=== PATIENT | female | born 1965 | race Caucasian/White ===

== ENCOUNTER 2020-01-03 13:07 | Outpatient (CLI) | payer OTHER, SELFPAY ==
--- NOTE | 2020-01-03 13:13 | XR_ITS ---
WS: [id number] XR foot LT 2V [id number] REASON FOR EXAM: PAIN IN LEFT FOOT FINDINGS: An os perineum is seen adjacent to the proximal fifth metatarsal this is showing some degen erate changes. The phalanges, metatarsals, tarsals appear to be normal. A large calcaneal spur is seen with retrocalcaneal exostosis. XR/XR foot LT 2V [id number] IMPRESSION: Os perineum of no significance. Large calcaneal spur with retrocalcaneal exostosis.
== END 2020-01-03 13:08 | disposition home or self-care (01) ==
LOC: RADWPI 13:11
PROVIDERS: Family Provider Nurse Practitioner Family; PCP Nurse Practitioner Family; Visit Provider Nurse Practitioner Family
DX: M79.672 Pain in left foot (principal); M77.32 Calcaneal spur, left foot; M89.9 Disorder of bone, unspecified
CPT/HCPCS: 73620

== ENCOUNTER 2020-08-22 15:10 | Outpatient (CLI) | payer OTHER, SELFPAY ==
--- NOTE | 2020-08-22 15:14 | MM_ITS ---
WS: [id number] BILATERAL SCREENING DIGITAL MAMMOGRAM WITH CAD HISTORY: SCREENING COMPARISON: 08/08/2018 and 05/24/2017 Bilateral CC and MLO views submitted. Computer aided detection analyzed. Breast composition: There are scattered areas of fibroglandular density. No suspicious masses, microc alcifications or architectural distortion. Calcifications and asymmetries are stable. MM/[place] [id number] IMPRESSION: BI-RADS: 2-Benign FOLLOW UP: 1 Year Follow-up
== END 2020-08-22 15:11 | disposition home or self-care (01) ==
LOC: RADSHAW 15:13
PROVIDERS: PCP Nurse Practitioner Family; Visit Provider Nurse Practitioner Family
DX: Z12.31 Encounter for screening mammogram for malignant neoplasm of breast (principal)
CPT/HCPCS: 77067

== ENCOUNTER 2021-08-07 12:39 | Inpatient (IN) | payer OTHER, SELFPAY ==
[2021-08-07 12:46] VITALS: BP 140/81; PULSE 94; RESP 14; TEMP 36.8; O2SAT 97; BMI 37.8
--- NOTE | 2021-08-07 13:21 | W.ED.ABDPA2 ---
HPI - Abdominal Pain General: Chief Complaint: Abdominal Pain Stated Complaint: Thinks its a Gallbladder attack Time Seen by Provider: 08/07/21 13:18 Source: patient Mode of arrival: ambulatory Limitations: no limitations History of Present Illness: HPI narrative: 55-year-old female with a history of started liver disease has had worsening abdominal pain since early this morning. She says she often has similar pain, but it goes away within a short period of time. Described as crampy, sharp, stabbing, mainly on the right upper quadrant but radiating all across her abdomen. She feels bloated, nauseous and has not vomited. No fever. Last meal:yesterday evening. She has had several episodes of diarrhea today, dark/blackish She was recently started on a steroid taper pack and cefdinir for a suspected sinus infection. No fever. has chronic diarrhea and frequent right upper quadrant pain, but denies history of GI bleeds. Not anticoagulated. Previous abdominal surgeries; hernia repair, hysterectomy Associated Symptoms: Reports bloating, change in bowel habits, GI cramping, diarrhea, melena and nausea; Denies chills, fever(s) and vomiting Review of Systems General: Reports: 10 or more systems reviewed and unremarkable except in HPI and below Const: Reports: change in appetite and fatigue; Denies: fever(s) or chills Eyes: Denies: change in vision or blurry vision ENMT: Denies: odynophagia Card: Denies: chest pain, palpitations or irregular heart rhythm Resp: Denies: dyspnea, productive cough or wheezing GI: Reports: nausea, diarrhea, bloating, GI cramping, change in bowel habits and melena; Denies: vomiting or rectal pain Musc: Denies: neck pain, back pain, extremity pain or extremity swelling Skin/Breast: Denies: rash, pruritus or erythema Neuro: Denies: headache(s), numbness in extremities or weakness in extremities Endo: Denies: polyuria or polydipsia Graeme/Lymph: Denies: easy bruising or easy bleeding PFS ED PFSH: Medical History (Updated 08/07/21 @ 21:49 by Whitley Ayers MD) Advanced cirrhosis of liver History of uterine cancer Hypertension Surgical History H/O hernia repair (~2005) H/O: hysterectomy (~2004) Family History Mother Hypertension Denies family history of Diabetes Dementia Cancer Social History Smoking and tobacco status: never smoked Alcohol intake: never Housing: House Marital status: Current gender identity: Female Physical Exam Const: COMMON NORMALS: patient oriented x3 and no limitations GENERAL APPEARANCE: anxious and ill appearing NUTRITIONAL APPEARANCE: obese ORIENTATION/CONSCIOUSNESS: Yes awake HENMT: COMMON NORMALS: normocephalic and atraumatic HEAD & SCALP: normocephalic and atraumatic FACE & SINUS: normal facial exam and face symmetric Eye: COMMON NORMALS: Equal, round and reactive pupils present, EOMs intact bilaterally and no scleral icterus PUPIL: Yes Equal, round and reactive pupils present Neck/C-Spine: COMMON NORMALS: full ROM, no lymphadenopathy and supple Resp: COMMON NORMALS: normal respiratory effort and No use of accessory muscles EFFORT & INSPECTION: Yes able to speak in complete sentences and No tachypneic Cardio: COMMON NORMALS: regular rate and regular rhythm RATE: regular rate RHYTHM: regular rhythm GI: COMMON NORMALS: Soft to palpation PALPATION: Yes Soft to palpation, Yes Tenderness to palpation present (GI) Details: RLQ and RUQ, No Guarding due to palpation present (GI), No Rigid due to palpation, No Palpable mass present and Yes Rebound tenderness present Extremity: COMMON NORMALS: normal to inspection, full ROM and capillary refill normal Neuro: COMMON NORMALS: patient oriented x3 and moves all extremities Skin: COMMON NORMALS: no rashes or lesions noted, no wounds and no jaundice GENERAL SKIN EXAM: no rashes or lesions noted Course Vital Signs: Vital signs: Vital Signs Temperature 98.3 F 08/07/21 12:46 Pulse Rate 84 08/07/21 18:28 Respiratory Rate 16 08/07/21 18:28 Blood Pressure 196/116 08/07/21 18:28 Pulse Oximetry 98 08/07/21 18:28 MDM - Abdominal Pain MDM Narrative: Medical decision making narrative: 55-year-old with acute on chronic right-sided abdominal pain, diarrhea, nausea. Differential diagnosis; cholecystitis, pancreatitis, JACOB, variceal bleeding, GI hemorrhage, mesenteric ischemia, C. difficile colitis, bowel obstruction, appendicitis, perforated ulcer, peritonitis, right lower lobe pneumonia WBC count mildly elevated, however other inflammatory markers well within normal limits, (CRP, Procal) Mild hypokalemia, given p.o. replacement. Chemistry otherwise unremarkable. LFTs wnl: Bili, alk phos, AST/ALT, lipase Protonix 80 mg IV x1, Zofran, pain control CT findings; gallbladder wall thickening with pericholecystic fluid: Patient says she has been told her GB is chronically enlarged and thickened, but surgeons have not wanted to operate because of the liver disease. We have no imaging here to confirm that this is her baseline, however. Considering that she has no lab evidence of biliary obstruction or severe infection, and her pain is not localized to that area: acute cholecystitis is unlikely to be the etiology of her acute abdominal pain. Other notable CT findings: mesenteric edema of the right colon, mild free free fluid in the pelvis, and signs of mild ileus vs early small bowel obstruction. I discussed the case with Dr. Amador, general surgeon on-call; admit for bowel rest, IV fluids, and serial H/H. He will consult on the patient following admission. Discussed with Dr. Pina, on-call hospitalist, he accepts the admission. Differential Diagnosis: Differential diagnosis abdominal pain: Likely acute appendicitis, diverticulitis, gastroenteritis, pancreatitis and small bowel obstruction Medical Records: Attestation: I reviewed the patient's medical records. Lab Data: Attestation: I reviewed the patient's lab results. Labs: Lab Results 08/07/21 08/07/21 08/07/21 14:25 14:25 14:25 WBC 12.7 10^3/uL H 10 ^3/uL (4.0-10.0) RBC 4.94 10^6/uL 10^6 /uL (4.1-5.3) Hgb 15.4 g/dL H g/dL (11.5-15.3) Hct 45.0 % % (37.0-47.0) MCV 91.1 fl fl (81-99) MCH 31.2 pg pg (28.0-34.0) MCHC 34.2 g/dL g/dL (30.0-36.0) RDW 13.7 % % (12.1-15.1) Plt Count 175 10^3/cmm 10^3 /cmm (130-400) MPV 9.4 fL fL (7.4-10.4) Neut % (Auto) 82.1 % % Lymph % (Auto) 8.3 % % [place] % (Auto) 8.1 % % Eos % (Auto) 0.8 % % Baso % (Auto) 0.3 % % Neut # (Auto) 10.42 10^3/uL H 1 0^3/uL (1.8-7.7) Lymph # (Auto) 1.1 10^3/uL 10^3/ uL (0.8-4.8) [place] # (Auto) 1.0 10^3/uL H 10^ 3/uL (0.2-0.9) Eos # (Auto) 0.1 10^3/uL 10^3/ uL (0.0-0.8) Baso # (Auto) 0.0 10^3/uL 10^3/ uL (0.0-0.1) Nucleated RBC % (a uto) 0 % % Nucleated RBCs # 0.0 /100WBC /100W BC PT 15.70 SECONDS H S ECONDS (12.1-14.9) INR 1.21 H (0.8-1.2) Sodium 137 mmol/L mmol/L (136-145) Potassium 3.2 mmol/L L mmol /L (3.5-5.1) Chloride 101 mmol/L mmol/L (98-107) Carbon Dioxide 21 mmol/L L mmol/ L (22-29) Anion Gap 18.2 (5-19) BUN 11 mg/dL mg/dL (6-20) Creatinine 0.5 mg/dL mg/dL (0.5-0.9) GFR Calculation 127.6 mL/min mL/m in (90-130) Glucose 98 mg/dL mg/dL (65-115) Calculated Osmolal ity 283 mOsm/kg L mOs m/kg (285-295) Lactate Calcium 8.6 mg/dL mg/dL (8.5-10.5) Total Bilirubin 1.2 mg/dL mg/dL (0.15-1.2) AST 27 U/L U/L (0-32) ALT 38 U/L H U/L (0-33) Alkaline Phosphata se 76 IU/L IU/L (35-105) C-Reactive Protein Total Protein 7.7 g/dL g/dL (6.6-8.7) Albumin 4.1 g/dL g/dL (3.5-5.2) Globulin 3.6 g/dL g/dL (1.3-4.6) Lipase 46 U/L U/L (13-60) Procalcitonin Urine Color Urine Appearance Urine pH Ur Specific Gravit y Urine Protein Urine Glucose (UA) Urine Ketones Urine Blood Urine Nitrate Urine Bilirubin Urine Urobilinogen Ur Leukocyte Paige ase Urine RBC Urine WBC Ur Squamous Epith Cells Amorphous Sediment Urine Bacteria 08/07/21 08/07/21 08/07/21 15:08 16:50 16:50 WBC RBC Hgb Hct MCV MCH MCHC RDW Plt Count MPV Neut % (Auto) Lymph % (Auto) [place] % (Auto) Eos % (Auto) Baso % (Auto) Neut # (Auto) Lymph # (Auto) [place] # (Auto) Eos # (Auto) Baso # (Auto) Nucleated RBC % (a uto) Nucleated RBCs # PT INR Sodium Potassium Chloride Carbon Dioxide Anion Gap BUN Creatinine GFR Calculation Glucose Calculated Osmolal ity Lactate 1.4 mmol/L mmol/L (0.5-2.2) Calcium Total Bilirubin AST ALT Alkaline Phosphata se C-Reactive Protein 2.6 mg/L mg/L (0.0-4.9) Total Protein Albumin Globulin Lipase Procalcitonin 0.07 ng/mL ng/mL (0-0.5) Urine Color Yellow (Yellow) Urine Appearance Clear (CLEAR) Urine pH 7 (5-7) Ur Specific Gravit y 1.005 (1.005-1.030) Urine Protein Neg (Negative) Urine Glucose (UA) Norm (Normal) Urine Ketones Negative (Negative) Urine Blood 2+ H (Negative) Urine Nitrate Negative (Negative) Urine Bilirubin Neg (Negative) Urine Urobilinogen Neg mg/dL mg/dL (Negative) Ur Leukocyte Paige ase Negative (Negative) Urine RBC Rare /hpf /hpf (0-2) Urine WBC None /hpf /hpf (0-5) Ur Squamous Epith Cells 0-4 /hpf H /hpf (0-5) Amorphous Sediment Not Reportable Urine Bacteria None /hpf /hpf (NONE) Discharge Plan Discharge Patient Disposition: Admitted As Inpatient Clinical Impression: Small bowel obstruction, Advanced cirrhosis of liver, Colitis, History of melena Condition: Stable Coding Level of Care Code ED Resource Recovery Specialist for Chg Fwd Exam Comprehensive
--- NOTE | 2021-08-07 13:33 | ECG_ITS ---
[facility] Test Date: 2021-08-07 Pat Name: Kerri Silvestre Department: Room: Gender: Female Computer Lab Aide: : 1965 Requested By: Whitley Ayers Order Number: [id number] Thomas MD: Roc Alcantara M.D. Measurements Intervals [place] Rate: 76 P: 24 CA: 121 QRS: -44 QRSD: 145 T: 11 QT: 424 QTc: 479 Interpretive Statements SINUS RHYTHM LEFT AXIS DEVIATION [QRS AXIS < -30] INTRAVENTRICULAR CONDUCTION DELAY [130+ ms QRS DURATION] VOLTAGE CRITERIA FOR LVH [MEETS CRITERIA IN ONE OF: R(aVL), S(V1), R(V5), R(V5/V6)+S(V1)] POSSIBLE SEPTAL MYOCARDIAL INFARCTION , PROBABLY OLD [30 ms Q WAVE IN V1/V2] No previous ECG available for comparison Electronically Signed On 08-08-2021 14:11:30 ASSEMBLING MOTOR BUILDER by Roc Alcantara M.D. [id number]
--- NOTE | 2021-08-07 13:35 | CT_ITS ---
WS: [id number] CT ABDOMEN AND PELVIS WITH CONTRAST HISTORY: right sided abdominal pain, nausea, distension TECHNIQUE: Imaging performed of the abdomen and pelvis with IV contrast. Single phase imaging of the abdomen. Coronal and sagittal reformats are submitted. All CT scans at [facility] use at [facility] one of these dose optimization techniques: automated exposure control; mA and/or kV adjustment per patient size (includes targeted exams where dose is matched to clinical indication); or iterative re construction. IV CONTRAST: Omnipaque 300; 95 mL IV. Oral contrast: No DLP: 1786.72 mGy.cm COMPARISON: None available. Lower thorax: Lung bases are clear. Heart is normal size. Small hiatal hernia. Liver/biliary system: Normal size liver. No bile duct dilatation. Normal portal vein. There is a smal l amount of perihepatic fluid. Partial recanalization of the umbilical vein. Gallbladder: Abnormal gallbladder. Gallbladder is normal size but there is pericholecystic fluid surr ounding the gallbladder. No stones are identified within the lumen. No bile duct dilatation. Pancreas: Normal size pancreas and pancreatic duct. No adjacent inflammation. Spleen: Spleen is moderately enlarged measuring 15 cm in length. Adrenal glands: Normal. Right kidney: Normal. Left kidney: Normal. Aorta: Mild atherosclerosis with no aneurysm. Lymphadenopathy: None. Free fluid: Small amount of perihepatic fluid. There is mild mesenteric edema extending along the RIG HT paracolic gutter. Small amount of free fluid in the RIGHT pelvis. GI tract: There is very mild fluid distention of the small bowel loops. No obstructive pattern. This may be due to old trauma mild ileus. Abdominal wall: Numerous clips within the intra-abdominal wall from prior hernia repair. Pelvis: Small amount of free fluid in the pelvis. Prior hysterectomy. Bones: Unremarkable. CT/CT abdomen pelvis w con* [id number] IMPRESSION: 1. Diffuse gallbladder wall thickening with gallbladder wall edema. No stones identified and no bile duct dilatation. There is also small amount of fluid alfred rounding the liver. Acute cholecystitis to be considered clinically but alterna tively acute hepatitis/cirrhosis should be considered due to the fluid around t he liver and the diffuse edema within the gallbladder. Gallbladder ultrasound m ay provide additional information concerning stones. 2. Mild mesenteric edema along the RIGHT paracolic gutter and a small amount o f free fluid in the RIGHT pelvis. 3. Mild fluid dilatation of small bowel loops. Consider mild ileus versus lauren y small bowel obstruction. No transition point is identified. 4. Mild splenomegaly 15 cm in length.
[2021-08-07 14:34] LABS: Basophils % 0.3 %; Eosinophils # 0.1 10^3/uL (0.0-0.8); Eosinophils % 0.8 %; Hemoglobin 15.4 g/dL (11.5-15.3); Lymphocytes # 1.1 10^3/uL (0.8-4.8); Lymphocytes % 8.3 %; Mean Corpuscular HGB Conc 34.2 g/dL (30.0-36.0); Mean Corpuscular Hemoglobin 31.2 pg (28.0-34.0); Mean Corpuscular Volume 91.1 fl (81-99); Mean Platelet Volume 9.4 fL (7.4-10.4); Monocytes % 8.1 %; Neutrophils # 10.42 10^3/uL (1.8-7.7); Neutrophils % 82.1 %; Nucleated Red Blood Cells % 0 %; Platelet Count 175 10^3/cmm (130-400); Red Blood Count 4.94 10^6/uL (4.1-5.3); Red Cell Distribution Width 13.7 % (12.1-15.1); White Blood Count 12.7 10^3/uL (4.0-10.0)
[2021-08-07] MEDS: pantoprazole 40 mg SDV 80 MG IVP (14:34)
[2021-08-07] MEDS: morphine 4 mg/mL SDV 1 mL IVP (14:35)
[2021-08-07] MEDS: ondansetron 2 mg/ML SDV 2 mL 4 MG IVP (14:35)
[2021-08-07 14:40] VITALS: BP 137/82; PULSE 92; RESP 14; O2SAT 98
[2021-08-07 14:47] LABS: INR 1.21 (0.8-1.2)
[2021-08-07] MEDS: iohexol 300 mg/mL 100 mL Btl IV (14:48)
[2021-08-07 14:55] LABS: Alanine Aminotransferase 38 U/L (0-33); Albumin Level 4.1 g/dL (3.5-5.2); Alkaline Phosphatase 76 IU/L (35-105); Anion Gap 18.2 (5-19); Aspartate Amino Transferase 27 U/L (0-32); Blood Urea Nitrogen 11 mg/dL (6-20); Calcium 8.6 mg/dL (8.5-10.5); Carbon Dioxide 21 mmol/L (22-29); Chloride 101 mmol/L (98-107); Globulin 3.6 g/dL (1.3-4.6); Glomerular Filtration Rate 127.6 mL/min (90-130); Glucose 98 mg/dL (65-115); Lipase 46 U/L (13-60); Osmolality Calculated 283 mOsm/kg (285-295); Potassium 3.2 mmol/L (3.5-5.1); Sodium 137 mmol/L (136-145); Total Bilirubin 1.2 mg/dL (0.15-1.2); Total Protein 7.7 g/dL (6.6-8.7)
[2021-08-07 15:27] VITALS: BP 139/83; PULSE 83; RESP 22; O2SAT 99
[2021-08-07 15:46] VITALS: BP 152/69; PULSE 81; RESP 14; O2SAT 97
--- NOTE | 2021-08-07 16:22 | USR_ITS ---
PROCEDURE INFORMATION: Exam: US Abdomen, Limited; Right Upper Quadrant Exam date and time: 08/07/2021 4:22 PM Age: 55 years old Clinical indication: Abnormal findings; Abnormal radiologic finding of the abdomen; Radiologic exam and body structure: CT abd/pelvis; Additional info: Abnormal CT findings TECHNIQUE: Imaging protocol: US abdomen. Real time ultrasound with image documentation. Limited exam focused on the right upper quadrant. COMPARISON: CT abdomen pelvis w con* [id number] 08/07/2021 2:50 PM FINDINGS: Liver: Mildly coarsened hepatic parenchymal echotexture. No masses. Gallbladder: Diffuse gallbladder wall thickening. Adherent nonshadowing stone versus gallbladder polyp measuring up to 1 cm along the wall of the gallbladder body. Common bile duct: The common bile duct measures 5 mm within normal limits. Pancreas: Poorly visualized due to overlying bowel gas and soft tissues. Right kidney: Right kidney measures 10.2 cm in length. No mass. No hydronephrosis. Intraperitoneal space: Trace perihepatic ascites. US/US gall bladder [id number] IMPRESSION: 1. Diffuse gallbladder wall thickening. Unclear if this is secondary to cholecystitis or reactive to underlying liver disease. 2. Nonmobile, nonshadowing 1 cm echogenic focus along the wall of the gallbladder body. Either an adherent stone or gallbladder polyp. 3. Coarsened appearance of the hepatic parenchyma suggestive of underlying liver disease. 4. Trace perihepatic ascites.
[2021-08-07 16:51] LABS: Add Urine Microscopic? YES; Bilirubin Urine Neg (Negative); Blood Urine 2+ (Negative); Glucose Urine UA Norm (Normal); Ketones Urine Negative (Negative); Leukocyte Esterase Urine Negative (Negative); Nitrate Urine Negative (Negative); Protein Urine Neg (Negative); Specific Gravity, Urine 1.005 (1.005-1.030); Urine Appearance Clear (CLEAR); Urine Color Yellow (Yellow); Urobilinogen Urine Neg (Negative); pH Urine 7 (5-7)
[2021-08-07 16:52] LABS: Add Urine Culture? No; RBC Urine RARE /hpf (0-2); Squamous Epithelial Cell Urine 0-4 /hpf (0-5)
[2021-08-07 16:57] VITALS: BP 173/82; PULSE 79; RESP 16; O2SAT 98
[2021-08-07 17:39] LABS: C Reactive Protein 2.6 mg/L (0.0-4.9)
[2021-08-07 17:40] LABS: Lactate (Lactic Acid level) 1.4 mmol/L (0.5-2.2)
[2021-08-07] MEDS: potassium chloride ER 20 mEq Tablet 40 MEQ PO (17:40)
[2021-08-07 17:44] LABS: Procalcitonin 0.07 ng/mL (0-0.5)
[2021-08-07 18:28] VITALS: BP 196/116; PULSE 84; RESP 16; O2SAT 98
[2021-08-07] MEDS: lactated ringers 1,000 ML 150 ML IV (20:00)
--- NOTE | 2021-08-07 20:05 | P.HP_ITS ---
Providers/Chief Complaint Primary Care Provider: JOAQUÍN Calvillo Chief Complaint: Thinks its a Gallbladder attack History of Present Illness Kerri Silvestre is a 55 year old female with past medical history of decompensated liver cirrhosis status post esophageal varices banding, secondary to GEIGER, chronic diarrhea, chronic abdominal pain of unclear etiology, says that it has always been related to her gallbladder, came in with chief complaint of Worsening generalized abdominal pain, started this morning, describes as crampy, sharp, located in the right upper quadrant, and radiating across the abdomen, accompanied with nausea, no vomiting. Denies any fever, chest pains, cough shortness of breath. According to the patient she says that she has long history of similar ongoing abdominal pain, but this morning it was more severe, and that is the reason why she came to the ER. Upon arrival in the ER she was worked up for above-mentioned complaint: Pertinent imaging studies: CT ABDOMEN AND PELVIS WITH CONTRAST: 1. Diffuse gallbladder wall thickening with gallbladder wall edema. No stones identified and no bile duct dilatation. There is also small amount of fluid surrounding the liver. Acute cholecystitis to be considered clinically but alternatively acute hepatitis/cirrhosis should be considered due to the fluid around the liver and the diffuse edema within the gallbladder. Gallbladder ultrasound may provide additional information concerning stones. 2. Mild mesenteric edema along the RIGHT paracolic gutter and a small amount of free fluid in the RIGHT pelvis. 3. Mild fluid dilatation of small bowel loops. Consider mild ileus versus early small bowel obstruction. No transition point is identified. 4. Mild splenomegaly 15 cm in length. Ultrasound gallbladder: 1. Diffuse gallbladder wall thickening. Unclear if this is secondary to cholecystitis or reactive to underlying liver disease. 2. Nonmobile, nonshadowing 1 cm echogenic focus along the wall of the gallbladder body. Either an adherent stone or gallbladder polyp. 3. Coarsened appearance of the hepatic parenchyma suggestive of underlying liver disease. 4. Trace perihepatic ascites. Pertinent labs: BC 9.4 H&H 13.4 / 39.5 , PLT : 113 , serum sodium 137 serum potassium 3.2, BUN and serum creatinine:11/0.5 , AST 27 ALT 38 ALP 76, total bilirubin:1.2, lactic acid 1.4, PT/INR : 15/1.21 Urinalysis clear Review of Systems Const: Denies: fever(s), chills, body aches, change in appetite or diaphoresis Card: Denies: palpitations, edema, swelling of feet/ankles, dyspnea on exertion, orthopnea or leg pain with exertion Resp: Denies: dyspnea, productive cough, wheezing or pain on inspiration : Denies: flank pain Musc: Denies: back pain, extremity pain or extremity swelling Neuro: Denies: headache(s), difficulty walking or confusion Medications/Allergies Home Medications Medication Instructions Recorded Confirmed Last Taken Type fexofenadine 60 mg tablet 60 mg PO BID 02/04/20 08/07/21 08/07/21 History triamterene 37.5 1 cap PO DAILY 02/04/20 08/07/21 08/07/21 History mg-hydrochlorothiazide 25 mg capsule Probiotic 1 tab-cap PO DAILY 08/07/21 08/07/21 08/07/21 History cefdinir 300 mg PO Q12H 08/07/21 08/07/21 08/07/21 History methylprednisolone See Rx Instructions .ROUTE .COMPLEX 08/07/21 08/07/21 08/07/21 History Allergies Allergy/AdvReac Type Severity Reaction Status Date / Time Penicillins Allergy Intermediate ALGY-Hives Verified 08/07/21 17:47 EL Inhibitors Allergy Unknown Verified 08/07/21 17:47 mometasone furoate Allergy ADR-Headach Verified 08/07/21 17:47 e PFSH Acute PFSH: Medical History (Updated 08/07/21 @ 22:38 by Onofre Pina MD) Advanced cirrhosis of liver History of uterine cancer Hypertension Surgical History H/O hernia repair (~2005) H/O: hysterectomy (~2004) Family History Mother Hypertension Denies family history of Diabetes Dementia Cancer Social History Smoking and tobacco status: never smoked Alcohol intake: never Housing: House Marital status: Current gender identity: Female Vitals/I&O/Wt Last Vital Signs Temp 98.3 F 08/07/21 12:46 Pulse 84 08/07/21 18:28 Resp 16 08/07/21 18:28 BP 196/116 08/07/21 18:28 Pulse Ox 98 08/07/21 18:28 Weight last 48 hrs Weight 99.79 kg Physical Exam Const: COMMON NORMALS: patient oriented x3 HENMT: COMMON NORMALS: normocephalic and atraumatic HEAD & SCALP: normocephalic and atraumatic Resp: COMMON NORMALS: clear to auscultation bilaterally AUSCULTATION: clear to auscultation bilaterally Cardio: COMMON NORMALS: regular rate, regular rhythm, S1 normal heart sound present, S2 normal heart sound present, No gallops present (Cardio), No murmurs present (Cardio), No rub (Cardio) and Peripheral pulses 2+ throughout RATE: regular rate RHYTHM: regular rhythm HEART SOUNDS: S1 normal heart sound present and S2 normal heart sound present PERIPHERAL PULSES: Peripheral pulses 2+ throughout GI: COMMON NORMALS: Normal to inspection, nondistended, normoactive bowel sounds present, Soft to palpation, non-tender, No hepatosplenomegaly present and no masses AUSCULTATION: Yes normoactive bowel sounds PALPATION: Yes Soft to palpation and Yes No hepatosplenomegaly present RECTAL EXAM: deferred Extremity: COMMON NORMALS: no clubbing, cyanosis or edema and no pedal edema Neuro: COMMON NORMALS: patient oriented x3 Data : 08/08/21 06:17 08/07/21 14:25 A&P Assessment and plan (1) Ileus: Status: Acute (2) Hypokalemia: Status: Acute (3) Dehydration: Status: Acute (4) Leukocytosis: Status: Acute (5) Advanced cirrhosis of liver: Status: Acute (6) Hypertension: Status: Acute (7) Thrombocytopenia: Status: Acute Additional A&P Information Kerri Silvestre is a 55 year old female with past medical history of decompensated liver cirrhosis status post esophageal varices banding, secondary to GEIGER, chronic diarrhea, chronic abdominal pain of unclear etiology, says that it has always been related to her gallbladder, came in with chief complaint of Worsening generalized abdominal pain, started this morning, describes as crampy, sharp, located in the right upper quadrant, and radiating across the abdomen, accompanied with nausea, no vomiting. Denies any fever, chest pains, cough shortness of breath. According to the patient she says that she has long history of similar ongoing abdominal pain, but this morning it was more severe. #Ileus versus developing SBO : N.p.o. IV hydration Pain control Electrolyte replacement Surgery was consulted by the ER, currently they are keen on medical management. #Decompensated liver cirrhosis secondary to Geiger: No acute intervention. See laborer pole crew as an outpatient. #Chronic thrombocytopenia: Secondary to liver cirrhosis #Splenomegaly: Secondary liver cirrhosis #Dehydration: Continue IV hydration #Hypokalemia: Monitor serum potassium and replace accordingly #DVT prophylaxis: On SCD #CODE STATUS: Full code Attestations Medical Necessity Statement*: Patient needs to be in hospital for management of early small bowel obstruction versus Ileus. Anticipated length of stay greater than 2 midnights. Time Spent in Patient Care: Greater than 35 minutes (>than 50% of time spent in counselling and/or direct pt care on unit) . Coding Level of Care Code Acute Hydrometeorology Teacher for g Fwd Exam Detailed Diagnoses Ileus K56.7 Hypokalemia E87.6 Dehydration E86.0 Leukocytosis D72.829 Advanced cirrhosis of liver K74.60 Hypertension I10 Thrombocytopenia D69.6
[2021-08-07] MEDS: enoxaparin 40 mg/0.4 mL Syringe SUBCUT (20:40)
[2021-08-07 22:19] LABS: Basophils % 0.2 %; Eosinophils % 0.2 %; Hematocrit 39.5 % (37.0-47.0); Hemoglobin 13.4 g/dL (11.5-15.3); Lymphocytes # 0.7 10^3/uL (0.8-4.8); Lymphocytes % 6.9 %; Mean Corpuscular HGB Conc 33.9 g/dL (30.0-36.0); Mean Corpuscular Hemoglobin 30.5 pg (28.0-34.0); Mean Corpuscular Volume 89.8 fl (81-99); Mean Platelet Volume 9.9 fL (7.4-10.4); Monocytes # 0.7 10^3/uL (0.2-0.9); Monocytes % 7.7 %; Neutrophils # 7.97 10^3/uL (1.8-7.7); Neutrophils % 84.6 %; Nucleated Red Blood Cells % 0 %; Platelet Count 113 10^3/cmm (130-400); Red Cell Distribution Width 13.7 % (12.1-15.1); White Blood Count 9.4 10^3/uL (4.0-10.0)
[2021-08-07] MEDS: lidocaine 1% 5 ML in potassium chloride premix 100 ML 25 ML IV (23:27)
--- NOTE | 2021-08-07 23:31 | PC.NURSE ---
pt wants IV potassium stopped, she states it is burning
[2021-08-08 00:20] LABS: SARS Covid-2 Antigen Negative (Negative)
[2021-08-08 01:43] VITALS: BP 130/73; PULSE 77; RESP 19; TEMP 37.3; O2SAT 130; BMI 38.0
--- NOTE | 2021-08-08 01:50 | PC.NURSE ---
ADMIT NOTE Pt received to room from ER at 0135. Walked from [facility] in [place] to room. Says abdominal pain started at about 0400 yesterday am. Abdomen is soft with generalized tenderness. Says knows her gallbladder is bad but they cannot do surgery due to her liver cirrhosis. Says thought this was a gallbladder attack this time. Is aware is NPO except for ice chips, sips and meds. IV patent with IV fluids infusing. Pt also says she has been having alot of diarrhea. Stool specimen was sent from the ER. Instructed on need to monitor I&O. VS done and oriented to room. RN at bedside doing admision assessment
[2021-08-08] MEDS: sodium chloride 0.9% 1,000 ML 75 ML IV ×3 (02:07→23:42)
[2021-08-08 03:49] VITALS: BP 135/63; PULSE 76; RESP 16; TEMP 37.7; O2SAT 94
[2021-08-08 06:30] LABS: Basophils % 0.4 %; Eosinophils # 0.1 10^3/uL (0.0-0.8); Eosinophils % 1.1 %; Hematocrit 36.7 % (37.0-47.0); Hemoglobin 12.7 g/dL (11.5-15.3); Lymphocytes # 0.6 10^3/uL (0.8-4.8); Lymphocytes % 11.3 %; Mean Corpuscular HGB Conc 34.6 g/dL (30.0-36.0); Mean Corpuscular Volume 89.5 fl (81-99); Mean Platelet Volume 9.7 fL (7.4-10.4); Monocytes # 0.7 10^3/uL (0.2-0.9); Monocytes % 12.2 %; Neutrophils # 4.18 10^3/uL (1.8-7.7); Neutrophils % 74.6 %; Nucleated Red Blood Cells % 0 %; Platelet Count 86 10^3/cmm (130-400); Red Cell Distribution Width 13.7 % (12.1-15.1); White Blood Count 5.6 10^3/uL (4.0-10.0)
[2021-08-08 06:52] LABS: Alanine Aminotransferase 28 U/L (0-33); Albumin Level 3.3 g/dL (3.5-5.2); Alkaline Phosphatase 59 IU/L (35-105); Anion Gap 14.2 (5-19); Aspartate Amino Transferase 21 U/L (0-32); Blood Urea Nitrogen 14 mg/dL (6-20); Calcium 7.9 mg/dL (8.5-10.5); Carbon Dioxide 22 mmol/L (22-29); Chloride 106 mmol/L (98-107); Globulin 2.6 g/dL (1.3-4.6); Glomerular Filtration Rate 103.4 mL/min (90-130); Glucose 100 mg/dL (65-115); Osmolality Calculated 289 mOsm/kg (285-295); Potassium 3.2 mmol/L (3.5-5.1); Sodium 139 mmol/L (136-145); Total Bilirubin 0.9 mg/dL (0.15-1.2); Total Protein 5.9 g/dL (6.6-8.7)
[2021-08-08] MEDS: acetaminophen 325 mg Tablet 650 MG PO ×3 (08:31→21:02)
[2021-08-08 09:12] VITALS: BP 108/63; PULSE 76; RESP 16; TEMP 37.2; O2SAT 96
[2021-08-08] MEDS: potassium chloride ER 20 mEq Tablet 40 MEQ PO (11:35)
[2021-08-08 11:41] LABS: Magnesium 1.6 mg/dL (1.7-2.3)
[2021-08-08] MEDS: cefTRIAXone 1,000 MG in sodium chloride 0.9% (plus) 50 ML 100 MG IV (12:16)
[2021-08-08] MEDS: pantoprazole 40 mg SDV IVP ×2 (12:16→22:56)
[2021-08-08 13:18] VITALS: BP 122/71; PULSE 67; RESP 15; TEMP 36.6; O2SAT 95
--- NOTE | 2021-08-08 15:10 | PM.PN ---
Subjective Subjective: Interval history: History and physical was reviewed. Patient reports significant abdominal pain, both sides but a little bit more on the right. Medications: Reviewed: Yes Vitals/I&O/Wt Last Vital Signs Temp 97.8 F 08/08/21 13:18 Pulse 67 08/08/21 13:18 Resp 15 08/08/21 13:18 BP 122/71 08/08/21 13:18 Pulse Ox 95 08/08/21 13:18 08/08/21 08/08/21 08/08/21 06:59 14:59 22:59 Intake Total 1.25 / 1.25 480 / 480 Output Total 250 / 250 Balance -248.75 / -248.75 480 / 480 Weight last 48 hrs Weight 104.598 kg Weight 100.698 kg Weight 99.79 kg Physical Exam Narrative: EXAM NARRATIVE: General exam no distress Neck is supple Cardiovascular regular rate and rhythm without murmur Abdomen tender. Positive bowel sounds exam deferred Extremities no cyanosis clubbing or edema Data : 08/08/21 06:17 08/08/21 06:17 Micro: Microbiology 08/08/21 14:39 Blood Culture - Preliminary Blood SPECIMEN COLLECTED 08/08/21 14:35 Blood Culture - Preliminary Blood SPECIMEN COLLECTED 08/08/21 00:09 Enteric Pathogens (PCR) - Final Stool - Stool Aspirate C.difficile Toxin B Gene (PCR) - Final A&P Assessment and plan (1) Ileus: She is passing stool. I am concerned regarding the small amount of mesenteric edema right paracolic gutter, small amount of free fluid in the pelvis and around the liver. Although this is not amenable to aspiration she could have SBP. Initiate Rocephin As she is passing stool, not vomiting will initiate some full liquids. Draw blood cultures Status: Acute (2) Hypokalemia: Supplement potassium Recheck tomorrow Magnesium was checked and low. Supplement this as well. Status: Acute (3) Dehydration: Currently being hydrated Status: Acute (4) Leukocytosis: Proceed to treat for possible SBP. No leukocytosis on today's labs. Status: Acute (5) Advanced cirrhosis of liver: Follows with hepatology in [place]. Status: Acute (6) Hypertension: Blood pressure normal currently Status: Acute (7) Thrombocytopenia: Continue to follow Status: Acute Additional A&P Information Full code SCDs for DVT prophylaxis Attestations Medical Necessity Statement*: Needs continued hospitalization for IV antibiotics for possible SBP Coding Level of Care Code Acute Clinical Lab Clerk for Chg Fwd Diagnoses Ileus K56.7 Hypokalemia E87.6 Dehydration E86.0 Leukocytosis D72.829 Advanced cirrhosis of liver K74.60 Hypertension I10 Thrombocytopenia D69.6
[2021-08-08] MEDS: magnesium sulfate premix 2 GM/50 ML PIGGYBACK IV (15:48)
[2021-08-08 16:54] VITALS: BP 102/65; PULSE 61; RESP 15; TEMP 36.6; O2SAT 94
[2021-08-08 20:00] VITALS: BP 106/60; PULSE 60; RESP 17; TEMP 37.3; O2SAT 95
[2021-08-09] VITALS: BP 112/59; PULSE 60; RESP 18; TEMP 36.9; O2SAT 96
[2021-08-09 03:38] VITALS: BP 123/74; PULSE 71; RESP 18; TEMP 36.8; O2SAT 98
[2021-08-09] MEDS: acetaminophen 325 mg Tablet 650 MG PO (03:38)
[2021-08-09 03:59] LABS: Basophils % 0.6 %; Eosinophils # 0.2 10^3/uL (0.0-0.8); Eosinophils % 6.7 %; Hematocrit 39.2 % (37.0-47.0); Lymphocytes # 0.7 10^3/uL (0.8-4.8); Lymphocytes % 18.6 %; Mean Corpuscular HGB Conc 33.2 g/dL (30.0-36.0); Mean Corpuscular Hemoglobin 31.2 pg (28.0-34.0); Mean Platelet Volume 9.8 fL (7.4-10.4); Monocytes # 0.5 10^3/uL (0.2-0.9); Monocytes % 14.2 %; Neutrophils # 2.15 10^3/uL (1.8-7.7); Neutrophils % 59.6 %; Nucleated Red Blood Cells % 0 %; Platelet Count 68 10^3/cmm (130-400); Red Blood Count 4.17 10^6/uL (4.1-5.3); White Blood Count 3.6 10^3/uL (4.0-10.0)
[2021-08-09 04:20] LABS: Alanine Aminotransferase 28 U/L (0-33); Albumin Level 3.3 g/dL (3.5-5.2); Alkaline Phosphatase 58 IU/L (35-105); Anion Gap 12.2 (5-19); Aspartate Amino Transferase 28 U/L (0-32); Blood Urea Nitrogen 13 mg/dL (6-20); Calcium 7.6 mg/dL (8.5-10.5); Carbon Dioxide 22 mmol/L (22-29); Chloride 108 mmol/L (98-107); Globulin 2.6 g/dL (1.3-4.6); Glomerular Filtration Rate 103.4 mL/min (90-130); Glucose 81 mg/dL (65-115); Magnesium 2.1 mg/dL (1.7-2.3); Osmolality Calculated 287 mOsm/kg (285-295); Potassium 3.2 mmol/L (3.5-5.1); Sodium 139 mmol/L (136-145); Total Bilirubin 0.8 mg/dL (0.15-1.2); Total Protein 5.9 g/dL (6.6-8.7)
--- NOTE | 2021-08-09 05:47 | PC.NURSE ---
SHIFT SUMMARY Says she slept off & on tonight. Has been up to bathroom several times for diarrhea stools. Says thinks probably 5 times at least. Abdomen is soft with tenderness but says not as much pain. Does c/o headache most all the time. Says these headaches are not new. Has received po Tylenol X2. IV infusing without difficulty at 75ml/hr rate.
[2021-08-09 08:00] VITALS: BP 134/81; PULSE 62; RESP 16; TEMP 37.1; O2SAT 94
[2021-08-09] MEDS: potassium chloride ER 20 mEq Tablet 40 MEQ PO (09:44)
--- NOTE | 2021-08-09 10:13 | P.DS_ITS ---
Discharge Providers Date of Admission: 08/07/21 20:01 Date of Discharge: August 09, 2021 Attending Provider at Admission: Onofre Pina MD Attending Provider at Discharge: Joseph Tinoco MD Primary Care Provider: JOAQUÍN Calvillo Diagnoses at Discharge Discharge Diagnosis (1) Ileus: Status: Acute (2) Hypokalemia: Status: Acute (3) Dehydration: Status: Acute (4) Leukocytosis: Status: Acute (5) Advanced cirrhosis of liver: Status: Acute (6) Hypertension: Status: Acute (7) Thrombocytopenia: Status: Acute Reason for Visit Reason for Visit: Thinks its a Gallbladder attack Hospital Course Hospital Course Kerri presented with abdominal pain. She states it was significantly worse than usual. She has had 1 episode of this in the past that seem to spontaneously resolved. She reports she has some low-grade abdominal discomfort frequently, and some loose stool. C. difficile toxin was negative as well as stool antigens. CT abdomen and pelvis demonstrated some gallbladder wall thickening, no duct dilation, mild mesenteric edema right paracolic gutter, mild fluid dilation of small bowel, and some fluid around the liver. Gallbladder ultrasound demonstrated some thickening likely secondary to underlying liver disease. Cholecystectomy was thought less likely secondary to her given history that she has had multiple evaluations of her gallbladder and changes were thought to be secondary to her chronic liver disease. Secondary to her chronic liver disease SBP could not be excluded. She was placed on Rocephin. On August 09 she was much better. She was tolerating full liquids, and wanted to go home. I felt this was reasonable as she was afebrile and abdominal discomfort greatly improved. She will finish up 7 days of ciprofloxacin, follow-up with her primary care provider as well as her liver specialist and return for any concerns. Physical Exam Narrative: EXAM NARRATIVE: General exam no distress Neck is supple Cardiovascular regular rate and rhythm Lungs clear Abdomen currently soft, with no significant tenderness Extremities no cyanosis clubbing or edema Discharge Data Data Completed and Pending: Completed Studies During Hospitalization Category Date Time Status CT abdomen pelvis w con* [id number] Urge nt Cat Scan 08/07/21 13:35 Completed US gall bladder 7 [id number] Urgent Ultrasound 08/07/21 16:22 Completed Pending at discharge Category Date Time Status Blood Culture Sta t Lab 08/08/21 14:39 Results Complete Blood Co unt w/Auto AM LABS Lab 08/10/21 04:00 Ordered Comprehensive Met abolic Panel AM LA BS Lab 08/10/21 04:00 Ordered Labs from last 24 hours 08/09/21 08/09/21 08/08/21 03:15 03:15 06:17 WBC 3.6 L RBC 4.17 Hgb 13.0 Hct 39.2 MCV 94.0 D MCH 31.2 MCHC 33.2 RDW 14.0 Plt Count 68 L MPV 9.8 Neut % (Auto) 59.6 Lymph % (Auto) 18.6 [place] % (Auto) 14.2 Eos % (Auto) 6.7 Baso % (Auto) 0.6 Neut # (Auto) 2.15 Lymph # (Auto) 0.7 L [place] # (Auto) 0.5 Eos # (Auto) 0.2 Baso # (Auto) 0.0 Nucleated RBC % (a uto) 0 Nucleated RBCs # 0.0 Sodium 139 Potassium 3.2 L Chloride 108 H Carbon Dioxide 22 Anion Gap 12.2 BUN 13 Creatinine 0.6 GFR Calculation 103.4 Glucose 81 Calculated Osmolal ity 287 Calcium 7.6 L Magnesium 2.1 1.6 L Total Bilirubin 0.8 AST 28 ALT 28 Alkaline Phosphata se 58 Total Protein 5.9 L Albumin 3.3 L Globulin 2.6 Vitals: Last Vital Signs Temp 98.7 F 08/09/21 08:00 Pulse 62 08/09/21 08:00 Resp 16 08/09/21 08:00 BP 134/81 08/09/21 08:00 Pulse Ox 94 08/09/21 08:00 Discharge Plan Discharge Patient Disposition: Home Condition: Stable Prescriptions: New pantoprazole [Protonix] 40 mg tablet,delayed release (DR/EC) 40 mg PO DAILY Qty: 30 RF: 0 ciprofloxacin HCl [Cipro] 500 mg tablet 500 mg PO BID Qty: 14 RF: 0 Continued fexofenadine [Sofi Allergy] 60 mg tablet 60 mg PO BID RF: 0 triamterene-hydrochlorothiazid 37.5-25 mg capsule 1 cap PO DAILY RF: 0 Probiotic 1 tab-cap PO DAILY RF: 0 Discontinued methylprednisolone 4 mg tablets,dose pack See Rx Instructions .ROUTE .COMPLEX RF: 0 cefdinir 300 mg capsule 300 mg PO Q12H RF: 0 Discharge Orders: Discharge Order (Routine); Ordered 08/09/21 Ordered By: Joseph Tinoco Referrals: Nora French FNP [Primary Care Provider] - 4-7 days Discharge Diet: Advance as tolerated Discharge Activity: Increase activity as tolerated Patient Instructions: Opioid Safety Activity Restrictions/Additional Instructions: Cipro 500 mg twice daily for 7 days Protonix 40 mg once daily Follow-up with your wood heel finisher in several weeks Follow-up with your primary care provider 3 to 5 days Return for worsening Discharge Attestations Time Spent in Discharge Care*: greater than 30 min Quality Metrics Clinical Quality Measures During this hospital stay, did patient experience: None Coding Level of Care Code Acute [facility] note Diagnoses Ileus K56.7 Hypokalemia E87.6 Dehydration E86.0 Leukocytosis D72.829 Advanced cirrhosis of liver K74.60 Hypertension I10 Thrombocytopenia D69.6
[2021-08-09] MEDS: ciprofloxacin 500 mg Tablet PO (10:22)
[2021-08-09 10:33] VITALS: BP 134/81; PULSE 62; RESP 16; TEMP 37.1; O2SAT 94
== END 2021-08-09 10:34 | disposition home or self-care (01) | DRG 372 ==
LOC: ER 23:30 → MEDSURG 08-08 01:14
PROVIDERS: Admitting Provider Internal Medicine; Emergency Provider Family Medicine; PCP Nurse Practitioner Family; Visit Provider Internal Medicine
DX: K65.2 Spontaneous bacterial peritonitis (principal); K56.7 Ileus, unspecified; K56.609 Unspecified intestinal obstruction, unspecified as to partial versus complete obstruction; K74.60 Unspecified cirrhosis of liver; Z85.42 Personal history of malignant neoplasm of other parts of uterus; I10 Essential (primary) hypertension; Z90.710 Acquired absence of both cervix and uterus; E87.6 Hypokalemia; E86.0 Dehydration; D69.59 Other secondary thrombocytopenia; K75.81 Nonalcoholic steatohepatitis (NASH)
CPT/HCPCS: 36415; 74177; 76705; 80053; 81001; 83605; 83690; 83735; 84145; 85025; 85610; 86140; 87040; 87426; 87493; 87506; 93005; 96361; 96365; 96372; 96375; 99285; C9113; J0696; J1650; J2270; J2405; J3475; J3480; J7030; Q9967

== ENCOUNTER 2023-01-05 11:16 | Outpatient (CLI) | payer BC, SELFPAY ==
--- NOTE | 2023-01-05 11:48 | XR_ITS ---
WS: [id number] EXAMINATION: XR chest 2V* [id number] REASON FOR EXAM: CHRONIC COUGH COMPARISON: None available. ORDER DATE: 01/05/2023 12:03 PM FINDINGS: There is some perihilar interstitial thickening with possibly some mild atelectasis in the right mid dle lobe on the lateral projection. The lungs are clear of consolidation. The cardiac and mediastinal outlines are unremarkable. There are no pleural effusions . No significant abnormalities are noted i n the spine or remainder of the bony thorax. XR/XR chest 2V* [id number] IMPRESSION: POSSIBLE BRONCHITIS OR. EARLY INTERSTITIAL PNEUMONITIS.
== END 2023-01-05 11:17 | disposition home or self-care (01) ==
PROVIDERS: PCP Nurse Practitioner Family; Visit Provider Nurse Practitioner Family
DX: R05.3 Chronic cough (principal)
CPT/HCPCS: 71046

== ENCOUNTER 2023-02-24 15:41 | Outpatient (CLI) | payer BC, SELFPAY ==
--- NOTE | 2023-02-24 16:00 | CT_ITS ---
WS: [id number] CT SINUSES TECHNIQUE: Noncontrast CT of the paranasal sinuses with coronal and sagittal reformatted images. CLINICAL INFORMATION: SINUSITIS COMPARISON: None. DLP: 377.[address] scans at [facility] use at least one of these dose optimization techniques: automated e xposure control; mA and/or kV adjustment per patient size (includes targeted exams where dose is matc hed to clinical indication); or iterative reconstruction. FINDINGS: Left to right nasal septal deviation measuring 6 mm. Left marium bullosa. Mild narrowing of the ostio meatal units bilaterally which remain patent. Mild mucosal thickening in the ethmoid air cells. Parti ally visualized mastoid air cells are well aerated. Frontal sinuses and maxillary sinuses are well aerated. Sphenoid sinuses are well aerated. Sphenoid o stia are patent. Partially visualized intracranial contents are normal for age. Normal posterior naso pharynx. Normal parapharyngeal fat. IMPRESSION: 1. Left to right nasal septal deviation measuring 6 mm. 2. Left marium bullosa. 3. Mild narrowing of the ostiomeatal units bilaterally which remain patent. 4. Paranasal sinuses are well aerated. Mild mucosal thickening in the ethmoid air cells. 5. Partially visualized mastoid air cells well aerated. Normal posterior nasopharynx. 6. No other suspicious findings.
== END 2023-02-24 15:42 | disposition home or self-care (01) ==
LOC: RAD 15:43
PROVIDERS: PCP Nurse Practitioner Family; Visit Provider Otolaryngology
DX: J32.9 Chronic sinusitis, unspecified (principal)
CPT/HCPCS: 70486

== ENCOUNTER 2023-02-25 07:29 | Outpatient (CLI) | payer BC, SELFPAY ==
--- NOTE | 2023-02-25 07:38 | US_ITS ---
WS: [id number] RIGHT UPPER QUADRANT ULTRASOUND HISTORY: NONALCOHOLIC STEATOHEPATITIS COMPARISON: 08/07/2021, Liver: 14.8 cm in length. Abnormal liver. Lobulated surface of the liver with diffuse moderate coarse echotexture. No discrete mass is identified. No bile duct dilatation. Portal Vein: Waveform of the portal vein is variable extending above and below the baseline. Gallbladder: Small amount of sludge within the gallbladder. There is also a nonshadowing nodule from the gallbladder wall measuring 10 x 5 x 8 mm consistent with a polyp. Polyp was previously described without increase in size. No pericholecystic fluid. CBD: 0.5 cm Pancreas: Not visualized. Right kidney: 11.0 cm in length. Normal size and echogenicity. No hydronephrosis or mass. Aorta and IVC: Unremarkable abdominal aorta and IVC. There is a small amount of ascites throughout the right upper quadrant. Small amount of ascites was n oted on the prior study of 08/07/2021. Very slight increase in amount of fluid. IMPRESSION: 1. Abnormal liver. Hepatic steatosis with changes of cirrhosis. Very coarse echotexture. No mass iden tified. 2. Gallbladder polyp similar in size to the study of 08/07/2021. 3. Small amount of ascites.
--- NOTE | 2023-02-25 08:26 | MM_ITS ---
WS: [id number] Bilateral screening 3D tomosynthesis digital mammogram, 02/25/2023 Clinical Data: SCREENING Comparison: 08/22/2020, 08/08/2018, 05/24/2017, 08/12/2015, 03/17/2015, 11/22/2012, 06/02/2009, 05/17/2008. Findings: The breast parenchymal pattern shows fibroglandular tissue. No spiculated masses or clustered calcifi cations are seen. There are no secondary signs of carcinoma. There are lymph nodes in both axilla. Impression: 1. Negative bilateral mammogram unchanged. 2. Recommend annual screening mammograms. MM/[place] [id number] BIRADS: 1-Negative FOLLOW UP: 1 Year Follow-up The CAD job checker was used.
== END 2023-02-25 07:30 | disposition home or self-care (01) ==
PROVIDERS: PCP Nurse Practitioner Family; Visit Provider Nurse Practitioner Family
DX: Z12.31 Encounter for screening mammogram for malignant neoplasm of breast (principal); K75.81 Nonalcoholic steatohepatitis (NASH); K74.60 Unspecified cirrhosis of liver; R18.8 Other ascites
CPT/HCPCS: 76705; 77063; 77067

== ENCOUNTER 2024-07-13 15:46 | Observation (INO) | payer BC, SELFPAY ==
[2024-07-13] VITALS (36 sets, daily range): BP systolic 131–161; BP diastolic 74–86; PULSE 66–89; RESP 14–57; TEMP 37; O2SAT 94–99; BMI 34.7; BMI 34.6
[2024-07-13 17:10] LABS: Basophils % 0.7 %; Eosinophils # 0.2 10^3/uL (0.0-0.8); Eosinophils % 3.6 %; Hematocrit 43.7 % (36-47); Lymphocytes % 17.4 %; Mean Corpuscular HGB Conc 32.7 g/dL (30-55); Mean Corpuscular Hemoglobin 31.4 pg (27-33); Mean Corpuscular Volume 95.8 fl (85-98); Mean Platelet Volume 9.4 fL (7.4-10.4); Monocytes # 0.5 10^3/uL (0.2-0.9); Monocytes % 9.1 %; Nucleated Red Blood Cells % 0 %; Platelet Count 151 10^3/cmm (157-399); Red Blood Count 4.56 10^6/uL (3.85-5.65); Red Cell Distribution Width 14.6 % (12.1-15.1); White Blood Count 5.51 10^3/uL (3.29-11.43)
[2024-07-13 17:21] LABS: INR 1.16 (0.8-1.2)
[2024-07-13 17:26] LABS: Alanine Aminotransferase 36 U/L (0-33); Albumin Level 3.4 g/dL (3.5-5.2); Alkaline Phosphatase 73 U/L (35-105); Aspartate Amino Transferase 44 U/L (0-32); Blood Urea Nitrogen 10 mg/dL (6-20); Calcium 9.2 mg/dL (8.5-10.5); Carbon Dioxide 23 mmol/L (22-29); Chloride 104 mmol/L (98-107); Creatinine Clr Calc Pharmacy 132.8621; Globulin 4.4 g/dL (1.3-4.6); Glomerular Filtration Rate 126.3 mL/min (90-130); Glucose 84 mg/dL (65-115); Lipase 31 U/L (13-60); Osmolality Calculated 284 mOsm/kg (285-295); Sodium 138 mmol/L (136-145); Total Bilirubin 1.8 mg/dL (0.15-1.2); Total Protein 7.8 g/dL (6.6-8.7)
--- NOTE | 2024-07-13 19:17 | CTR_ITS ---
PROCEDURE INFORMATION: Exam: CT Abdomen And Pelvis With Contrast Exam date and time: 07/13/2024 7:39 PM Age: 58 years old Clinical indication: Bloating; Abdominal pain; Generalized; Prior surgery; Surgery date: 6+ months; Surgery type: Hernia repair. Hysterectomy; Patient HX: Diffuse abd pain with distention. History of cirrhosis. ; Additional info: Abdominal pain, abdominal distention TECHNIQUE: Imaging protocol: Computed tomography of the abdomen and pelvis with contrast. Radiation optimization: All CT scans at this facility use at least one of these dose optimization techniques: automated exposure control; mA and/or kV adjustment per patient size (includes targeted exams where dose is matched to clinical indication); or iterative reconstruction. Contrast material: OMNI 350; Contrast volume: 100 ml; Contrast route: INTRAVENOUS (IV); COMPARISON: CT abdomen pelvis w con* [id number] 08/07/2021 2:50 PM RADIATION DOSE METRICS: Total DLP (mGy-cm): 1068.94 FINDINGS: Liver: Cirrhotic liver. Gallbladder and biliary ducts: Normal. No calcified stones. No ductal dilation. Pancreas: Normal. No ductal dilation. Spleen: The spleen is mildly enlarged measuring up to 12.7 cm in length. Adrenal glands: Normal. No mass. Kidneys and ureters: Normal. No hydronephrosis. Stomach and bowel: Unremarkable. No obstruction. No mucosal thickening. Appendix: No evidence of appendicitis. Intraperitoneal space: Large amount of abdominal ascites. Vasculature: Unremarkable. No abdominal aortic aneurysm. Lymph nodes: Unremarkable. No enlarged lymph nodes. Urinary bladder: Unremarkable as visualized. Reproductive: Unremarkable as visualized. Bones/joints: Unremarkable. No acute fracture. Soft tissues: Prior ventral hernia repair with mesh. Lobulated fluid collections within the subcutaneous fat just superficial to the anterior abdominal wall measuring up to 8.7 x 5.4 cm. This fluid is the same attenuation as the ascites. CT/CT abdomen pelvis w con* [id number] IMPRESSION: 1. Cirrhotic liver. 2. Large amount of abdominal ascites. 3. Prior ventral hernia repair with mesh. Lobulated fluid collections within the subcutaneous fat just superficial to the anterior abdominal wall measuring up to 8.7 x 5.4 cm. This fluid is the same attenuation as the ascites.
--- NOTE | 2024-07-13 19:20 | W.ED.ABDPA2 ---
HPI - Abdominal Pain General: Chief Complaint: Abdominal Pain Stated Complaint: swollen abd Time Seen by Provider: 07/13/24 19:07 History of Present Illness: Mrs. Silvestre is a 58-year-old female that presents to the emergency department abdominal distention and abdominal discomfort for the last 2 months. Patient reports she was diagnosed with advanced cirrhosis years ago. Her management has been completed at [facility] in [place]. She denies any prior paracentesis but has undergone numerous therapies. She describes a procedure as banding . She is on sure on the weight gain. She denies fever, chills, vomiting. She reports nausea and diarrhea today. She has no appetite and has had little intake today. She denies chest pain or shortness of breath Associated Symptoms: Reports bloating, change in bowel habits, GI cramping, diarrhea and nausea; Denies chills, fever(s) and vomiting Related Data Home Medications Medication Instructions Recorded Confirmed fexofenadine 60 mg tablet (Sofi 60 mg PO BID PRN allergies 02/04/20 07/13/24 Allergy) triamterene 37.5 1 cap PO DAILY 02/04/20 07/13/24 mg-hydrochlorothiazide 25 mg capsule rifaximin 550 mg tablet (Xifaxan) 550 mg PO BID 02/09/23 07/13/24 albuterol 90 mcg-budesonide 80 2 inh inhalation Q4H PRN Shortness 07/13/24 07/13/24 mcg/actuation HFA aerosol inhaler Of Breath (Airsupra) budesonide-formoterol HFA 160 2 puff inhalation BID 07/13/24 07/13/24 mcg-4.5 mcg/actuation aerosol inhaler (Breyna) Allergies Allergy/AdvReac Type Severity Reaction Status Date / Time Penicillins Allergy Intermediate ALGY-Hives Verified 07/13/24 15:51 EL Inhibitors Allergy Unknown Verified 07/13/24 15:51 mometasone furoate Allergy ADR-Headach Verified 07/13/24 15:51 e alpha gal Allergy ALGY-Anaphy Uncoded 07/13/24 15:51 laxis Review of Systems General: Reports: 10 or more systems reviewed and unremarkable except in HPI and below Const: Reports: change in appetite and fatigue; Denies: fever(s) or chills Eyes: Denies: change in vision or blurry vision ENMT: Denies: odynophagia Card: Denies: chest pain, palpitations or irregular heart rhythm Resp: Denies: dyspnea, productive cough or wheezing GI: Reports: abdominal pain, nausea, diarrhea, bloating, GI cramping and change in bowel habits; Denies: vomiting or rectal pain Musc: Denies: neck pain, back pain, extremity pain or extremity swelling Skin/Breast: Denies: rash, pruritus or erythema Neuro: Denies: headache(s), numbness in extremities or weakness in extremities Endo: Denies: polyuria or polydipsia Graeme/Lymph: Denies: easy bruising or easy bleeding PFSH ED PFSH: Medical History (Updated 07/14/24 @ 00:54 by ZACARIAS Marshall) Liver cirrhosis secondary to JACOB Anxiety disorder Asthma Advanced cirrhosis of liver Hypertension Surgical History History of uterine cancer s/p hysterectomy b/l salpingoophorectomy in 2004. H/O hernia repair (~2005) abdominal hernia repair with mesh. Mesh was later recalled. Family History Mother Hypertension Liver cirrhosis secondary to JACOB Denies family history of Diabetes Dementia Cancer Social History Smoking and tobacco/nicotine status: never used tobacco/nicotine Alcohol intake: never Substance/Drug Use: never Housing: House Marital status: Current gender identity: Female Physical Exam Const: COMMON NORMALS: patient oriented x3 and no limitations GENERAL APPEARANCE: anxious and ill appearing NUTRITIONAL APPEARANCE: obese ORIENTATION/CONSCIOUSNESS: Yes awake HENMT: COMMON NORMALS: normocephalic and atraumatic HEAD & SCALP: normocephalic and atraumatic FACE & SINUS: normal facial exam and face symmetric Eye: COMMON NORMALS: Equal, round and reactive pupils present, EOMs intact bilaterally and no scleral icterus PUPIL: Yes Equal, round and reactive pupils present Neck/C-Spine: COMMON NORMALS: full ROM, no lymphadenopathy and supple Resp: COMMON NORMALS: normal respiratory effort and No use of accessory muscles EFFORT & INSPECTION: Yes able to speak in complete sentences and No tachypneic Cardio: COMMON NORMALS: regular rate and regular rhythm RATE: regular rate RHYTHM: regular rhythm GI: AUSCULTATION: Yes Hypoactive bowel sounds present PALPATION: Yes Firmness to palpation present (GI), Yes Tenderness to palpation present (GI) Details: RLQ and RUQ, No Guarding due to palpation present (GI), No Rigid due to palpation, No Palpable mass present, Yes Ascites present and No Rebound tenderness present Extremity: COMMON NORMALS: normal to inspection, full ROM and capillary refill normal Neuro: COMMON NORMALS: patient oriented x3 and moves all extremities Skin: COMMON NORMALS: no rashes or lesions noted, no wounds and no jaundice GENERAL SKIN EXAM: no rashes or lesions noted Course Vital Signs: Vital signs: Vital Signs Temperature 98.4 F 07/14/24 00:04 Pulse Rate 72 07/14/24 00:04 Respiratory Rate 17 07/14/24 00:04 Blood Pressure 149/54 07/14/24 00:04 Pulse Oximetry 96 07/14/24 00:04 Oxygen Delivery Me thod Room Air 07/14/24 00:04 MDM - Abdominal Pain Medical Decision Making Patient is a 58-year-old female that presents to the emergency department with abdominal pain and abdominal distention. Onset of symptoms in the last 2 months but worse in the last 24 hours. She has a history of advanced cirrhosis. Denies prior episode of abdominal distention to this extent. She denies any prior paracentesis. She does have an abdominal scar from history of hernia repair and hysterectomy. Hysterectomy was due to uterine cancer. Here in the emergency department she underwent a laboratory evaluation that included CBC, CMP, lipase, lactic acid, PT/INR. Lactic acid was within normal limits. She does have elevated liver enzymes and as a result her PTT is prolonged. She does have hypokalemia. CT of the abdomen pelvis completed and reveals extensive ascites and cirrhotic liver. The CT also reveals prior ventral hernia repair with mesh. There are lobulated fluid collections within the subcutaneous fat just superficial to the anterior abdominal wall measuring up to 8.7 cm x 5.4 cm. This is a same continuation as the ascites. I spoke with the hospitalist who presented to the emergency department for patient evaluation and discussion of paracentesis. Lab Data 07/13/24 16:59 07/13/24 16:59 Labs/Radiology: Radiology Impressions Abdomen/Pelvis CT 07/13/24 19:17 IMPRESSION: 1. Cirrhotic liver. 2. Large amount of abdominal ascites. 3. Prior ventral hernia repair with mesh. Lobulated fluid collections within the subcutaneous fat just superficial to the anterior abdominal wall measuring up to 8.7 x 5.4 cm. This fluid is the same attenuation as the ascites. Laboratory Results WBC 5.51 10^3/uL (3.29-11.43) 07/13/24 16:59 RBC 4.56 10^6/uL (3.85-5.65) 07/13/24 16:59 Hgb 14.30 g/dL (11.27-16.99) 07/13/24 16:59 Hct 43.7 % (36-47) 07/13/24 16:59 MCV 95.8 fl (85-98) 07/13/24 16:59 MCH 31.4 pg (27-33) 07/13/24 16:59 MCHC 32.7 g/dL (30-55) 07/13/24 16:59 RDW 14.6 % (12.1-15.1) 07/13/24 16:59 Plt Count 151 10^3/cmm (157-399) L 07/13/24 16:59 MPV 9.4 fL (7.4-10.4) 07/13/24 16:59 Neut % (Auto) 69.0 % 07/13/24 16:59 Lymph % (Auto) 17.4 % 07/13/24 16:59 [place] % (Auto) 9.1 % 07/13/24 16:59 Eos % (Auto) 3.6 % 07/13/24 16:59 Baso % (Auto) 0.7 % 07/13/24 16:59 Neut # (Auto) 3.80 10^3/uL (1.8-7.7) 07/13/24 16:59 Lymph # (Auto) 1.0 10^3/uL (0.8-4.8) 07/13/24 16:59 [place] # (Auto) 0.5 10^3/uL (0.2-0.9) 07/13/24 16:59 Eos # (Auto) 0.2 10^3/uL (0.0-0.8) 07/13/24 16:59 Baso # (Auto) 0.0 10^3/uL (0.0-0.1) 07/13/24 16:59 Nucleated RBC % (auto) 0 % 07/13/24 16:59 Nucleated RBCs # 0.0 /100WBC 07/13/24 16:59 PT 15.20 SECONDS (12.1-14.9) H 07/13/24 16:59 INR 1.16 (0.8-1.2) 07/13/24 16:59 Sodium 138 mmol/L (136-145) 07/13/24 16:59 Potassium 3.0 mmol/L (3.5-5.1) L 07/13/24 16:59 Chloride 104 mmol/L (98-107) 07/13/24 16:59 Carbon Dioxide 23 mmol/L (22-29) 07/13/24 16:59 Anion Gap 14.0 (5-19) 07/13/24 16:59 BUN 10 mg/dL (6-20) 07/13/24 16:59 Creatinine 0.5 mg/dL (0.5-0.9) 07/13/24 16:59 GFR Calculation 126.3 mL/min (90-130) 07/13/24 16:59 Glucose 84 mg/dL (65-115) 07/13/24 16:59 Calculated Osmolality 284 mOsm/kg (285-295) L 07/13/24 16:59 Lactic Acid 1.3 mmol/L (0.5-2.2) 07/13/24 16:59 Calcium 9.2 mg/dL (8.5-10.5) 07/13/24 16:59 Magnesium 1.6 mg/dL (1.7-2.3) L 07/13/24 16:59 Total Bilirubin 1.8 mg/dL (0.15-1.2) H 07/13/24 16:59 AST 44 U/L (0-32) H 07/13/24 16:59 ALT 36 U/L (0-33) H 07/13/24 16:59 Alkaline Phosphatase 73 U/L (35-105) 07/13/24 16:59 Total Protein 7.8 g/dL (6.6-8.7) 07/13/24 16:59 Albumin 3.4 g/dL (3.5-5.2) L 07/13/24 16:59 Globulin 4.4 g/dL (1.3-4.6) 07/13/24 16:59 Lipase 31 U/L (13-60) 07/13/24 16:59 Urine Color Dark yellow (Yellow) A 07/13/24 19:53 Urine Appearance Clear (CLEAR) 07/13/24 19:53 Urine pH 7.0 (5-7) 07/13/24 19:53 Ur Specific [place] 1.053 (1.005-1.030) H 07/13/24 19:53 Urine Protein Trace (Negative) A 07/13/24 19:53 Urine Glucose (UA) Negative (Normal) 07/13/24 19:53 Urine Ketones 1+ (Negative) H 07/13/24 19:53 Urine Blood Negative (Negative) 07/13/24 19:53 Urine Nitrate Negative (Negative) 07/13/24 19:53 Urine Bilirubin Negative (Negative) 07/13/24 19:53 Urine Urobilinogen 1.0 mg/dL (Negative) 07/13/24 19:53 Ur Leukocyte Esterase Trace (Negative) A 07/13/24 19:53 Urine RBC 11-20 /hpf (0-2) H 07/13/24 19:53 Urine WBC 0-5 /hpf (0-5) 07/13/24 19:53 Ur Squamous Epith Cells 6-10 /hpf (0-5) 07/13/24 19:53 Amorphous Sediment Not Reportable 07/13/24 19:53 Urine Bacteria Trace /hpf (NONE) 07/13/24 19:53 Hyaline Casts 7.01 /lpf 07/13/24 19:53 Urine Yeast Trace /hpf 07/13/24 19:53 All radiology interpretation(s) finalized by discharge Discharge Plan Discharge Patient Disposition: Admitted As Inpatient Admit Provider: Vianca Woods Clinical Impression: Ascites, Thrombocytopenia, Advanced cirrhosis of liver Condition: Stable Coding Level of Care Code ED Sap Developer for Daria Hill
[2024-07-13] MEDS: potassium chloride ER 20 mEq Tablet PO ×2 (19:28→22:18)
[2024-07-13] MEDS: ondansetron 2 mg/ML SDV 2 mL 4 MG IVP (19:31)
[2024-07-13 19:40] LABS: Lactic Sepsis W/Reflex 1.3 mmol/L (0.5-2.2)
[2024-07-13] MEDS: iohexol 350 mg/mL 500 mL Btl (per mL) IV (19:42)
[2024-07-13 19:59] LABS: Bilirubin Urine Negative (Negative); Blood Urine Negative (Negative); Glucose Urine UA Negative (Normal); Ketones Urine 1+ (Negative); Leukocyte Esterase Urine Trace (Negative); Nitrate Urine Negative (Negative); Protein Urine Trace (Negative); Urine Appearance Clear (CLEAR); Urine Color Dark Yellow (Yellow)
[2024-07-13 20:04] LABS: Add Urine Microscopic? YES; Bacteria Urine Trace /hpf; Hyaline Casts Urine 7.01 /lpf; Universal Test for UA Present (0); WBC Urine 0-5 /hpf (0-5)
[2024-07-13 20:19] LABS: Specific Gravity, Urine 1.053 (1.005-1.030)
[2024-07-13 20:20] LABS: Add Urine Culture? Yes
--- NOTE | 2024-07-13 20:32 | PM.HP ---
Providers/Chief Complaint Primary Care Provider: JOAQUÍN Calvillo Chief Complaint: swollen abd History of Present Illness Rocket Assembly Operator: Mayelin Woodward MD at [facility] Mrs. Kerri Silvestre is a 58 yo woman w/ Asthma, Alpha gal syndrome, HTN, Decompensated JACOB Liver Cirrhosis, since the late , complicated by esophageal varices s/p a total of approximately 14 bands, who presents to [facility] on 07/13/2024 with complaints of abdominal pain, abdominal distention, nausea, SOB progressively for the last 2 months. She went to see her Primary care VEGETABLE FARMER today, who recommended that the patient contact her GI. She contacted her GI who suspected ascites and recommended that she come here to get a paracentesis. In addition to her abdominal distention, the patient complains of a paraumbilical knot, to the R. side of her umbilicus that is tender w/ her abdominal distention. She has baseline loose stools, 4-5 stools during the day, and another 1-2 at night, which she says is attributed to her Alpha gal syndrome. She endorses increased difficulty controlling her baseline loose stools since she started experiencing abdominal distention in the last 2 months. She denies f/c, vomiting, light headedness, syncope, nasal congestion, rhinorrhea, CP, palpitations, dysuria, hematuria, increased urinary urgency/frequency. She endorses night sweats for the last 1 week, feeling cold for the last 2 days, dizziness if she stands too quickly. She endorses R. lower extremity swelling, noted by her Nurse Practitioner today, and complains of difficulty tying her shoes. She endorses chronic coughing and wheezing, which she attributes to her Asthma, but she does not feel that her cough or wheezing is worse with her GI symptoms. She has never had a paracentesis or had an episode of hepatic encephalopathy. In the ED, her vital signs were significant for tachypnea. Her labs were significant for K of 3.0, for which she was given 40mEQ of oral KCl. She had a hyperbilirubinemia and mildly elevated transaminitis. Her UA showed microscopic hematuria. A CT abdomen and pelvis was done that showed a cirrhotic liver with a large amount of abdominal ascites. It also showed a prior right ventral hernia with mesh with fluid collections of the same attenuation of the ascites. Review of Systems Const: Reports: change in weight and night sweats; Denies: fever(s) or chills Eyes: Denies: change in vision ENMT: Reports: other (no sore throat); Denies: ear or mastoid pain, ear discharge, nasal discharge or nasal congestion Card: Denies: chest pain or palpitations Resp: Reports: dyspnea; Denies: productive cough or wheezing GI: Reports: abdominal pain and nausea; Denies: vomiting, hematochezia or melena : Denies: dysuria, urinary frequency, urinary urgency or hematuria Musc: Reports: other (intermittent leg cramps); Denies: joint pain Skin/Breast: Denies: rash or new lesions Neuro: Reports: dizziness and other (no syncope); Denies: headache(s) Psych: Reports: anxiety; Denies: suicidal ideation or homicidal ideation Endo: Reports: cold intolerance; Denies: heat intolerance Graeme/Lymph: Reports: easy bruising; Denies: easy bleeding All/Imm: Reports: food intolerance (beef, pork, dairy or mammal products. No fish or chicken. ) Medications/Allergies Home Medications Medication Instructions Recorded Confirmed Last Taken Type fexofenadine 60 mg tablet (Sofi 60 mg PO BID PRN allergies 02/04/20 07/13/24 08/07/21 History Allergy) triamterene 37.5 1 cap PO DAILY 02/04/20 07/13/24 07/13/24 08:00 History mg-hydrochlorothiazide 25 mg capsule rifaximin 550 mg tablet (Xifaxan) 550 mg PO BID 02/09/23 07/13/24 07/13/24 08:00 History albuterol 90 mcg-budesonide 80 2 inh inhalation Q4H PRN Shortness 07/13/24 07/13/24 Unknown History mcg/actuation HFA aerosol inhaler Of Breath (Airsupra) budesonide-formoterol HFA 160 2 puff inhalation BID 07/13/24 07/13/24 07/13/24 08:00 History mcg-4.5 mcg/actuation aerosol inhaler (Breyna) Allergies Allergy/AdvReac Type Severity Reaction Status Date / Time Penicillins Allergy Intermediate ALGY-Hives Verified 07/13/24 15:51 EL Inhibitors Allergy Unknown Verified 07/13/24 15:51 mometasone furoate Allergy ADR-Headach Verified 07/13/24 15:51 e alpha gal Allergy ALGY-Anaphy Uncoded 07/13/24 15:51 laxis PFSH Acute PFSH: Medical History (Updated 07/14/24 @ 00:03 by Vianca Woods MD) Liver cirrhosis secondary to JACOB Anxiety disorder Asthma Advanced cirrhosis of liver Hypertension Surgical History History of uterine cancer s/p hysterectomy b/l salpingoophorectomy in 2004. H/O hernia repair (~2005) abdominal hernia repair with mesh. Mesh was later recalled. Family History Mother Hypertension Liver cirrhosis secondary to JACOB Denies family history of Diabetes Dementia Cancer Social History Smoking and tobacco/nicotine status: never used tobacco/nicotine Alcohol intake: never Substance/Drug Use: never Housing: House Marital status: Current gender identity: Female Vitals/I&O/Wt Last Vital Signs Temp 98.6 F 07/13/24 15:46 Pulse 77 07/13/24 20:15 Resp 22 H 07/13/24 20:15 BP 133/74 07/13/24 20:15 Pulse Ox 95 07/13/24 20:15 O2 Del Method Room Air 07/13/24 15:46 07/13/24 07/13/24 07/13/24 06:59 14:59 22:59 Intake Total 0 / 0 Balance 0 / 0 Weight last 48 hrs Weight 91.626 kg Physical Exam Const: GENERAL APPEARANCE: cooperative; not comfortable ORIENTATION/CONSCIOUSNESS: Yes awake, Yes oriented to person, Yes oriented to place and Yes oriented to time HENMT: HEAD & SCALP: normocephalic and atraumatic NOSE: Normal external nose present EXTERNAL EAR: Yes external ears normal MOUTH: Normal oral and palatal mucosa present THROAT: posterior oropharynx abnormal (mild jaundice) Eye: CONJUNCTIVA: Yes conjunctival abnormal positive bilateral conjunctival icterus PUPIL: Yes Equal, round and reactive pupils present EOM: No EOM abnormal Lymph: OTHER: No cervical or supraclavicular LAD Resp: OTHER: CTAB, no w/r/r Cardio: OTHER: RRR ,2/6 systolic murmur in the RUSB and apex. No rubs, gallops or clicks. 2+ radial and DP pulses, no carotid bruits. GI: OTHER: BS+, tenderness to palpation to the R. side of the umbilius, with protrusion of that area. Abdominal distension noted. No guarding, no rigidity , no rebound tenderness. Extremity: GENERAL: No clubbing, No cyanosis and No edema Neuro: CRANIAL NERVES: Yes CN normal except as noted SPEECH: speech normal SENSORY EXAM: No sensory level loss detected MOTOR EXAM: 5/5 motor strength present throughout and Normal motor muscle tone present throughout Psych: APPEARANCE: Yes grossly normal ATTITUDE: Yes calm and Yes engaged ACTIVITY/MOTOR BEHAVIOR: Yes appropriate eye contact SPEECH: Yes normal speech MOOD & AFFECT: Yes euthymic mood THOUGHT PROCESS: Normal thought process present THOUGHT CONTENT: Yes Normal thought content present ATTENTION/CONCENTRATION: Yes attention grossly intact MEMORY/COGNITION: Yes memory grossly intact Skin: GENERAL SKIN EXAM: no rashes or lesions noted Data 07/13/24 16:59 07/13/24 16:59 A&P Assessment and plan (1) Advanced cirrhosis of liver: (2) Ascites: (3) Hypokalemia: Plan Mrs. Kerri Silvestre is a 58 yo woman w/ Asthma, Alpha gal syndrome, HTN, Decompensated JACOB Liver Cirrhosis, since the late , complicated by esophageal varices s/p a total of approximately 14 bands, who was referred to [facility] on 07/13/2024, by her Gastroentrologist from [facility] for Ascites requiring first time paracentesis after she called her office with complaints of abdominal pain, abdominal distention, nausea, SOB progressively for the last 2 months. #Ascites: #Decompensated JACOB Liver Cirrhosis - NPO after midnight. Paracentesis ordered. - Please order Paracentesis labs. - Her Records were requested from [facility] by the ED staff. #R. ventral hernia: pain will likely improve after her paracentesis. Will monitor tonight #Transaminitis: Likely due to her liver Cirrhosis. Monitor #Hypokalemia: S/p 40mEQ int he ED. Will give another 40mEQ x 1 now #HTN: Resumed homemeds #Asthma: not in exacerbation. scheduled and prn duonebs ordered. #Alpha gal syndrome: Avoid beef, pork, dairy, gelatin, mamalian products. #Anxiety: SHe says she is on medications, but I do not see any on her home meds list. DVT ppx: SCD Attestations Medical Necessity Statement*: Patient needs to be admitted for paracentesis and r/o bacterial peritonitis. Time Spent in Patient Care: >70mins was spent on patient interview, physical exam, lab/imaging review, formulation of plan. Coding Level of Care Code 68992 Diagnoses Advanced cirrhosis of liver K74.60 Ascites R18.8 Hypokalemia E87.6
--- NOTE | 2024-07-13 23:43 | ECG_ITS ---
[facility] 2024-[facility]14 Pat Name: Kerri Silvestre Department: Room: 252 Gender: Female Counterperson: : 1965 Requested By: Vianca Woods Order Number: [id number] Martha MD: Kj Hewitt M.D. Measurements Intervals Dexter Rate: 69 P: 22 LA: 143 QRS: -47 QRSD: 141 T: -7 QT: 471 QTc: 505 Interpretive Statements SINUS RHYTHM RIGHT BUNDLE BRANCH BLOCK [120+ ms QRS DURATION, UPRIGHT V1, 40+ ms S IN I/aVL/V4/V5/V6] LEFT ANTERIOR FASCICULAR BLOCK [QRS AXIS <= -45, QR IN I, RS IN II] LEFT VENTRICULAR HYPERTROPHY AND ST-T CHANGE [VOLTAGE CRITERIA PLUS ST/T ABNORMALITY] Compared to ECG 08/07/2021 14:19:47 Right bundle-branch block now present Left anterior fascicular block now present ST (T wave) deviation now present Intraventricular conduction delay no longer present Myocardial infarct finding no longer present Electronically Signed On 07-15-2024 20:17:20 DEMAND MANAGER by Kj Hewitt M.D. [id number]
[2024-07-14] VITALS (9 sets, daily range): BP systolic 105–149; BP diastolic 54–81; PULSE 62–79; RESP 15–21; TEMP 36.7–37; O2SAT 93–96
[2024-07-14 00:13] LABS: Magnesium 1.6 mg/dL (1.7-2.3)
[2024-07-14] MEDS: potassium chloride ER 20 mEq Tablet 40 MEQ PO (00:35)
[2024-07-14] MEDS: ipratropium-albuterol 3 mL Neb INHALATION ×2 (01:45→08:12)
[2024-07-14 05:08] LABS: Basophils % 0.7 %; Eosinophils # 0.2 10^3/uL (0.0-0.8); Eosinophils % 4.4 %; Hematocrit 37.4 % (36-47); Lymphocytes # 0.7 10^3/uL (0.8-4.8); Lymphocytes % 17.3 %; Mean Corpuscular HGB Conc 32.6 g/dL (30-55); Mean Corpuscular Hemoglobin 31.5 pg (27-33); Mean Corpuscular Volume 96.6 fl (85-98); Mean Platelet Volume 9.7 fL (7.4-10.4); Monocytes # 0.5 10^3/uL (0.2-0.9); Monocytes % 12.7 %; Neutrophils # 2.66 10^3/uL (1.8-7.7); Neutrophils % 64.7 %; Nucleated Red Blood Cells % 0 %; Platelet Count 97 10^3/cmm (157-399); Red Blood Count 3.87 10^6/uL (3.85-5.65); Red Cell Distribution Width 14.6 % (12.1-15.1); White Blood Count 4.11 10^3/uL (3.29-11.43)
[2024-07-14 05:21] LABS: Partial Thromboplastin Time 39.6 SECONDS (23.9-36.7)
[2024-07-14 05:22] LABS: Alanine Aminotransferase 30 U/L (0-33); Albumin Level 2.8 g/dL (3.5-5.2); Alkaline Phosphatase 63 U/L (35-105); Anion Gap 12.8 (5-19); Aspartate Amino Transferase 38 U/L (0-32); Blood Urea Nitrogen 12 mg/dL (6-20); Calcium 8.6 mg/dL (8.5-10.5); Carbon Dioxide 23 mmol/L (22-29); Chloride 109 mmol/L (98-107); Globulin 3.6 g/dL (1.3-4.6); Glomerular Filtration Rate 126.3 mL/min (90-130); Glucose 80 mg/dL (65-115); Magnesium 1.7 mg/dL (1.7-2.3); Osmolality Calculated 291 mOsm/kg (285-295); Phosphorus 3.3 mg/dL (2.5-4.5); Potassium 3.8 mmol/L (3.5-5.1); Sodium 141 mmol/L (136-145); Total Bilirubin 1.4 mg/dL (0.15-1.2); Total Protein 6.4 g/dL (6.6-8.7)
[2024-07-14] MEDS: budesonide 0.5 mg/2 mL Neb INHALATION ×2 (08:12→20:59)
[2024-07-14] MEDS: rifaximin 200 mg Tablet 600 MG PO ×2 (09:00→17:29)
--- NOTE | 2024-07-14 13:48 | PM.PN ---
Subjective Subjective: Overnight labs and H&P reviewed. Patient needs a paracentesis, however this is not available until Tuesday07/16/24. (today is Tuesday) Medications: Reviewed: Yes Vitals/I&O/Wt Last Vital Signs Temp 98.5 F 07/14/24 11:15 Pulse 75 07/14/24 13:18 Resp 16 07/14/24 13:18 BP 116/61 07/14/24 11:15 Pulse Ox 95 07/14/24 13:18 O2 Del Method Room Air 07/14/24 13:18 07/13/24 07/14/24 07/14/24 22:59 06:59 14:59 Intake Total 0 / 0 200 / 200 Balance 0 / 0 200 / 200 Weight last 48 hrs Weight 91.399 kg Weight 91.308 kg Weight 91.58 kg Weight 91.626 kg Physical Exam Narrative: General: No acute distress, AO x3 HEENT: PERRLA, pupils bilaterally equal and reactive, pallors not present Chest: Normal vesicular breath sounds, no added sounds, equal good air entry bilaterally CVS: S1-S2 regular, no murmurs, no tachycardia, no gallops, no rubs Abdomen: gross ascites + Data 07/14/24 04:30 07/14/24 04:30 A&P Assessment and plan (1) Advanced cirrhosis of liver: (2) Ascites: (3) Hypokalemia: Plan Mrs. Kerri Silvestre is a 58 yo woman w/ Asthma, Alpha gal syndrome, HTN, Decompensated JACOB Liver Cirrhosis, since the late , complicated by esophageal varices s/p a total of approximately 14 bands, who was referred to [facility] on 07/13/2024, by her Gastroentrologist from [facility] for Ascites requiring first time paracentesis after she called her office with complaints of abdominal pain, abdominal distention, nausea, SOB progressively for the last 2 months. #Ascites: #Decompensated JACOB Liver Cirrhosis - NPO after midnight. Paracentesis ordered. - Please order Paracentesis labs. - Her Records were requested from [facility] by the ED staff. #R. ventral hernia: pain will likely improve after her paracentesis. Will monitor tonight #Transaminitis: Likely due to her liver Cirrhosis. Monitor #Hypokalemia: S/p 40mEQ int he ED. Will give another 40mEQ x 1 now #HTN: Resumed homemeds #Asthma: not in exacerbation. scheduled and prn duonebs ordered. #Alpha gal syndrome: Avoid beef, pork, dairy, gelatin, mamalian products. #Anxiety: SHe says she is on medications, but I do not see any on her home meds list. DVT ppx: SCD 07/14/24: Decompensated cirrhosis. Needs paracentesis. However not available until Tuesday. In the interim start Lasix 40 mg IV every 24 hours. We do not carry her home dose of triamterene-HCTZ. Continue rifaximin and lactulose at home dosing. Currently no signs of hepatic encephalopathy. Attestations Medical Necessity Statement*: Awaiting paracentesis on Tuesday Coding Level of Care Code Acute Code for Chg Fwd Diagnoses Advanced cirrhosis of liver K74.60 Ascites R18.8 Hypokalemia E87.6
[2024-07-14] MEDS: FUROsemide 10 mg/mL SDV 4mL 40 MG IVP (17:29)
[2024-07-15] VITALS (8 sets, daily range): BP systolic 112–134; BP diastolic 57–78; PULSE 63–72; RESP 15–19; TEMP 36.7–36.9; O2SAT 94–96
[2024-07-15 05:43] LABS: Basophils % 0.8 %; Eosinophils # 0.2 10^3/uL (0.0-0.8); Eosinophils % 4.6 %; Hematocrit 35.3 % (36-47); Lymphocytes # 0.7 10^3/uL (0.8-4.8); Mean Corpuscular HGB Conc 33.1 g/dL (30-55); Mean Corpuscular Hemoglobin 31.5 pg (27-33); Mean Corpuscular Volume 95.1 fl (85-98); Monocytes # 0.5 10^3/uL (0.2-0.9); Monocytes % 12.3 %; Neutrophils # 2.33 10^3/uL (1.8-7.7); Neutrophils % 63.8 %; Nucleated Red Blood Cells % 0 %; Platelet Count 84 10^3/cmm (157-399); Red Blood Count 3.71 10^6/uL (3.85-5.65); Red Cell Distribution Width 14.3 % (12.1-15.1); White Blood Count 3.66 10^3/uL (3.29-11.43)
[2024-07-15 06:09] LABS: Magnesium 1.6 mg/dL (1.7-2.3)
[2024-07-15 06:10] LABS: Alanine Aminotransferase 27 U/L (0-33); Alkaline Phosphatase 62 U/L (35-105); Anion Gap 15.2 (5-19); Aspartate Amino Transferase 36 U/L (0-32); Blood Urea Nitrogen 13 mg/dL (6-20); Calcium 8.1 mg/dL (8.5-10.5); Carbon Dioxide 23 mmol/L (22-29); Chloride 106 mmol/L (98-107); Creatinine Clr Calc Pharmacy 132.6885; Globulin 3.1 g/dL (1.3-4.6); Glomerular Filtration Rate 126.3 mL/min (90-130); Glucose 96 mg/dL (65-115); Osmolality Calculated 292 mOsm/kg (285-295); Potassium 3.2 mmol/L (3.5-5.1); Sodium 141 mmol/L (136-145); Total Bilirubin 1.2 mg/dL (0.15-1.2); Total Protein 6.1 g/dL (6.6-8.7)
[2024-07-15] MEDS: rifaximin 200 mg Tablet 600 MG PO ×2 (09:03→17:12)
[2024-07-15] MEDS: budesonide 0.5 mg/2 mL Neb INHALATION ×2 (09:10→20:35)
--- NOTE | 2024-07-15 13:52 | P.PN_ITS ---
Subjective 2 Subjective: No acute interim events. Awaiting for paracentesis tomorrow. Medications: Reviewed: Yes Vitals/I&O/Wt Last Vital Signs Temp 98.1 F 07/15/24 07:38 Pulse 70 07/15/24 08:00 Resp 16 07/15/24 08:00 BP 130/74 07/15/24 07:38 Pulse Ox 94 07/15/24 08:00 O2 Del Method Room Air 07/15/24 08:00 07/14/24 07/15/24 07/15/24 22:59 06:59 14:59 Intake Total 120 / 120 120 / 120 Output Total 1100 / 1100 550 / 1650 Balance -980 / -980 -550 / -1530 120 / 120 Weight last 48 hrs Weight 91.399 kg Weight 91.399 kg Weight 91.308 kg Weight 91.58 kg Weight 91.626 kg Physical Exam 2 Narrative: General: No acute distress, AO x3 HEENT: PERRLA, pupils bilaterally equal and reactive, pallors not present Chest: Normal vesicular breath sounds, no added sounds, equal good air entry bilaterally CVS: S1-S2 regular, no murmurs, no tachycardia, no gallops, no rubs Abdomen: gross ascites + Data 07/15/24 04:05 07/15/24 04:05 Micro: Microbiology 07/13/24 19:53 Urine Culture - Final Urine,Clean Catch A&P Assessment and plan (1) Advanced cirrhosis of liver: (2) Ascites: (3) Hypokalemia: Plan Mrs. Kerri Silvestre is a 58 yo woman w/ Asthma, Alpha gal syndrome, HTN, Decompensated JACOB Liver Cirrhosis, since the late , complicated by esophageal varices s/p a total of approximately 14 bands, who was referred to [facility] on 07/13/2024, by her Gastroentrologist from [facility] for Ascites requiring first time paracentesis after she called her office with complaints of abdominal pain, abdominal distention, nausea, SOB progressively for the last 2 months. #Ascites: #Decompensated JACOB Liver Cirrhosis - NPO after midnight. Paracentesis ordered. - Please order Paracentesis labs. - Her Records were requested from [facility] by the ED staff. #R. ventral hernia: pain will likely improve after her paracentesis. Will monitor tonight #Transaminitis: Likely due to her liver Cirrhosis. Monitor #Hypokalemia: S/p 40mEQ int he ED. Will give another 40mEQ x 1 now #HTN: Resumed homemeds #Asthma: not in exacerbation. scheduled and prn duonebs ordered. #Alpha gal syndrome: Avoid beef, pork, dairy, gelatin, mamalian products. #Anxiety: SHe says she is on medications, but I do not see any on her home meds list. DVT ppx: SCD 07/14/24: Decompensated cirrhosis. Needs paracentesis. However not available until Tuesday. In the interim start Lasix 40 mg IV every 24 hours. We do not carry her home dose of triamterene-HCTZ. Continue rifaximin and lactulose at home dosing. Currently no signs of hepatic encephalopathy. July 15, 2024 Plan paracentesis tomorrow. No acute interim events. Patient can likely discharge after paracentesis tomorrow if tolerates well. Continue Lasix 40 mg IV every 24 hours, rifaximin and lactulose. Attestations 2 Medical Necessity Statement*: Plan paracentesis tomorrow Coding Level of Care Code Acute Code for Chg Fwd Diagnoses Advanced cirrhosis of liver K74.60 Ascites R18.8 Hypokalemia E87.6
[2024-07-15] MEDS: FUROsemide 10 mg/mL SDV 4mL 40 MG IVP (17:12)
[2024-07-16] VITALS (12 sets, daily range): BP systolic 106–136; BP diastolic 57–78; PULSE 62–72; RESP 14–21; TEMP 36.6–37.1; O2SAT 95–99
[2024-07-16 03:53] LABS: Basophils % 0.6 %; Eosinophils # 0.2 10^3/uL (0.0-0.8); Eosinophils % 5.6 %; Hematocrit 35.5 % (36-47); Lymphocytes # 0.7 10^3/uL (0.8-4.8); Lymphocytes % 21.8 %; Mean Corpuscular HGB Conc 32.7 g/dL (30-55); Mean Corpuscular Volume 94.9 fl (85-98); Mean Platelet Volume 9.8 fL (7.4-10.4); Monocytes # 0.5 10^3/uL (0.2-0.9); Monocytes % 14.5 %; Neutrophils # 1.94 10^3/uL (1.8-7.7); Neutrophils % 57.2 %; Nucleated Red Blood Cells % 0 %; Platelet Count 97 10^3/cmm (157-399); Red Blood Count 3.74 10^6/uL (3.85-5.65); Red Cell Distribution Width 14.2 % (12.1-15.1); White Blood Count 3.39 10^3/uL (3.29-11.43)
[2024-07-16 04:20] LABS: Alanine Aminotransferase 24 U/L (0-33); Albumin Level 2.8 g/dL (3.5-5.2); Alkaline Phosphatase 57 U/L (35-105); Anion Gap 13.1 (5-19); Aspartate Amino Transferase 35 U/L (0-32); Blood Urea Nitrogen 12 mg/dL (6-20); Calcium 8.3 mg/dL (8.5-10.5); Carbon Dioxide 24 mmol/L (22-29); Chloride 105 mmol/L (98-107); Creatinine Clr Calc Pharmacy 132.4804; Globulin 3.4 g/dL (1.3-4.6); Glomerular Filtration Rate 126.3 mL/min (90-130); Glucose 92 mg/dL (65-115); Osmolality Calculated 287 mOsm/kg (285-295); Potassium 3.1 mmol/L (3.5-5.1); Sodium 139 mmol/L (136-145); Total Bilirubin 1.2 mg/dL (0.15-1.2); Total Protein 6.2 g/dL (6.6-8.7)
[2024-07-16 04:24] LABS: Magnesium 1.6 mg/dL (1.7-2.3)
[2024-07-16] MEDS: magnesium sulfate premix 4 GM/100 ML PREMIX IV (05:02)
[2024-07-16] MEDS: potassium chloride ER 20 mEq Tablet 40 MEQ PO ×2 (05:02→09:52)
[2024-07-16] MEDS: budesonide 0.5 mg/2 mL Neb INHALATION ×2 (08:07→20:16)
[2024-07-16 12:13] LABS: INR 1.24 (0.8-1.2)
[2024-07-16 14:16] LABS: Cyto Order Verification Order Verified; PATH Referral YES
[2024-07-16 14:17] LABS: Apprearance, Body Fluid CLOUDY; Color, Body Fluid YELLOW; Fluid Laterality ASCITES
[2024-07-16 14:24] LABS: Body Fluid Polynuclear #Cells 0.017; Body Fluid WBC 135 /uL; Monocytes # Body Fluid 0.118; RBC, Body Fluid 0 10^3/uL
[2024-07-16 14:41] LABS: Body Fluid Specific Gravity 1.014
[2024-07-16 14:43] LABS: pH Body Fluid 7.5
[2024-07-16 14:53] LABS: Albumin Body Fluid 0.6 g/dL; Cholesterol Body Fluid 20 mg/dL (0-200); Fluid Alkaline Phos. 22 IU/L; LDH Body Fluid 43 U/L; Total Protein Body Fluid 1.1 g/dL; Triglycerides Body Fluid 54 mg/dL (0-150); Uric Acid Body Fluid 5 mg/dL
--- NOTE | 2024-07-16 14:57 | PC.NURSE ---
Paracentesis pulled [id number] from patient. Notified Arnaldo in Ultrasound.
[2024-07-16] MEDS: albumin 12.5 GM/50 ML VIAL IV (16:22)
[2024-07-16] MEDS: acetaminophen 325 mg Tablet 650 MG PO (16:33)
--- NOTE | 2024-07-16 16:42 | P.PN_ITS ---
Subjective 2 Subjective: Seen this morning. Awaiting paracentesis today. Vitals/I&O/Wt Last Vital Signs Temp 98.2 F 07/16/24 12:00 Pulse 63 07/16/24 12:00 Resp 16 07/16/24 12:00 BP 128/72 07/16/24 12:00 Pulse Ox 97 07/16/24 12:00 O2 Del Method Room Air 07/16/24 12:00 07/16/24 07/16/24 07/16/24 06:59 14:59 22:59 Intake Total 0 / 1070 100 / 100 Output Total 100 / 1600 Balance -100 / -530 100 / 100 Weight last 48 hrs Weight 90.759 kg Weight 91.127 kg Weight 91.399 kg Physical Exam 2 Narrative: General: No acute distress, AO x3 HEENT: PERRLA, pupils bilaterally equal and reactive, pallors not present Chest: Normal vesicular breath sounds, no added sounds, equal good air entry bilaterally CVS: S1-S2 regular, no murmurs, no tachycardia, no gallops, no rubs Abdomen: gross ascites + Data 07/16/24 02:45 07/16/24 02:45 Micro: Microbiology 07/16/24 13:55 Gram Stain - Final Peritoneal Fluid A&P Assessment and plan (1) Advanced cirrhosis of liver: (2) Ascites: (3) Hypokalemia: Plan Mrs. Kerri Silvestre is a 58 yo woman w/ Asthma, Alpha gal syndrome, HTN, Decompensated JACOB Liver Cirrhosis, since the late , complicated by esophageal varices s/p a total of approximately 14 bands, who was referred to [facility] on 07/13/2024, by her Gastroentrologist from [facility] for Ascites requiring first time paracentesis after she called her office with complaints of abdominal pain, abdominal distention, nausea, SOB progressively for the last 2 months. #Ascites: #Decompensated JACOB Liver Cirrhosis - NPO after midnight. Paracentesis ordered. - Please order Paracentesis labs. - Her Records were requested from [facility] by the ED staff. #R. ventral hernia: pain will likely improve after her paracentesis. Will monitor tonight #Transaminitis: Likely due to her liver Cirrhosis. Monitor #Hypokalemia: S/p 40mEQ int he ED. Will give another 40mEQ x 1 now #HTN: Resumed homemeds #Asthma: not in exacerbation. scheduled and prn duonebs ordered. #Alpha gal syndrome: Avoid beef, pork, dairy, gelatin, mamalian products. #Anxiety: SHe says she is on medications, but I do not see any on her home meds list. DVT ppx: SCD 07/14/24: Decompensated cirrhosis. Needs paracentesis. However not available until Tuesday. In the interim start Lasix 40 mg IV every 24 hours. We do not carry her home dose of triamterene-HCTZ. Continue rifaximin and lactulose at home dosing. Currently no signs of hepatic encephalopathy. July 15, 2024 Plan paracentesis tomorrow. No acute interim events. Patient can likely discharge after paracentesis tomorrow if tolerates well. Continue Lasix 40 mg IV every 24 hours, rifaximin and lactulose. 07/16/2024 - awaiting paracentesis today - order albumin after paracentesis - plan for dc in am if BP remains stable Attestations 2 Medical Necessity Statement*: plan for dc in am Diagnoses Advanced cirrhosis of liver K74.60 Ascites R18.8 Hypokalemia E87.6
[2024-07-16] MEDS: FUROsemide 10 mg/mL SDV 4mL 40 MG IVP (19:28)
[2024-07-16] MEDS: rifaximin 200 mg Tablet 600 MG PO (19:29)
--- NOTE | 2024-07-16 23:58 | US_ITS ---
WS: [id number] ULTRASOUND-GUIDED THERAPEUTIC AND DIAGNOSTIC PARACENTESIS Procedure, risks, and complications have been explained to the patient. Consent is obtained. Utilizing aseptic technique and 1% buffered lidocaine, a small dermatome was made through which a 5 F rench Yueh catheter was inserted. Approximately 3850 ml of clear peritoneal fluid was obtained witho ut difficulty. No complications encountered. Specimen collected for analysis as requested. US/US paracentesis abd w [id number] IMPRESSION: Uncomplicated paracentesis yielding 3850 ml of peritoneal fluid.
[2024-07-17 04:00] VITALS: BP 114/63; PULSE 56; RESP 16; TEMP 36.4; O2SAT 97
[2024-07-17 04:58] LABS: Basophils % 0.7 %; Eosinophils # 0.2 10^3/uL (0.0-0.8); Eosinophils % 4.9 %; Lymphocytes # 0.6 10^3/uL (0.8-4.8); Lymphocytes % 20.1 %; Mean Corpuscular HGB Conc 33.1 g/dL (30-55); Mean Corpuscular Hemoglobin 31.6 pg (27-33); Mean Corpuscular Volume 95.7 fl (85-98); Mean Platelet Volume 9.7 fL (7.4-10.4); Monocytes # 0.3 10^3/uL (0.2-0.9); Monocytes % 10.9 %; Neutrophils # 1.92 10^3/uL (1.8-7.7); Neutrophils % 63.1 %; Nucleated Red Blood Cells % 0 %; Platelet Count 84 10^3/cmm (157-399); Red Blood Count 3.76 10^6/uL (3.85-5.65); Red Cell Distribution Width 14.2 % (12.1-15.1); White Blood Count 3.04 10^3/uL (3.29-11.43)
[2024-07-17 05:22] LABS: Alanine Aminotransferase 26 U/L (0-33); Albumin Level 2.9 g/dL (3.5-5.2); Alkaline Phosphatase 56 U/L (35-105); Anion Gap 14.2 (5-19); Aspartate Amino Transferase 39 U/L (0-32); Blood Urea Nitrogen 11 mg/dL (6-20); Calcium 8.1 mg/dL (8.5-10.5); Carbon Dioxide 23 mmol/L (22-29); Chloride 107 mmol/L (98-107); Creatinine Clr Calc Pharmacy 165.2486; Globulin 3.3 g/dL (1.3-4.6); Glomerular Filtration Rate 163.4 mL/min (90-130); Glucose 89 mg/dL (65-115); Osmolality Calculated 291 mOsm/kg (285-295); Potassium 3.2 mmol/L (3.5-5.1); Sodium 141 mmol/L (136-145); Total Bilirubin 1.4 mg/dL (0.15-1.2); Total Protein 6.2 g/dL (6.6-8.7)
[2024-07-17 08:00] VITALS: BP 123/76; PULSE 62; PULSE 66; RESP 15; RESP 16; TEMP 36.4; O2SAT 97; O2SAT 98
[2024-07-17] MEDS: budesonide 0.5 mg/2 mL Neb INHALATION (08:00)
--- NOTE | 2024-07-17 09:06 | PM.DCS ---
Discharge Providers Date of Admission: 07/13/24 21:38 Date of Discharge: July 17, 2024 Attending Provider at Admission: Vianca Woods MD Attending Provider at Discharge: Reba Wade MD Primary Care Provider: JOAQUÍN Calvillo Diagnoses at Discharge Discharge Diagnosis (1) Advanced cirrhosis of liver: Status: Acute (2) Ascites: Status: Acute (3) Hypokalemia: Status: Resolved Reason for Visit Reason for Visit: swollen abd Hospital Course Hospital Course Mrs. Kerri Silvestre is a 58 yo woman w/ Asthma, Alpha gal syndrome, HTN, Decompensated JACOB Liver Cirrhosis, since the late , complicated by esophageal varices s/p a total of approximately 14 bands, who was referred to [facility] on 07/13/2024, by her Gastroentrologist from [facility] for Ascites requiring first time paracentesis after she called her office with complaints of abdominal pain, abdominal distention, nausea, SOB progressively for the last 2 months. Patient does have upcoming appointment coming up with gastroenterology in next week July 25. During hospitalization large-volume paracentesis was done. 6.8 L was removed. She was given 2 units of albumin thereafter. Her meals did. She was sent home on Lasix lactulose rifaximin spironolactone. Her triamterene hydrochlorothiazide was stopped. Patient felt good and was stable at time of discharge. She is encouraged to follow-up with her support group manager for further management. Physical Exam Narrative: General: No acute distress, AO x3 HEENT: PERRLA, pupils bilaterally equal and reactive, pallors not present Chest: Normal vesicular breath sounds, no added sounds, equal good air entry bilaterally CVS: S1-S2 regular, no murmurs, no tachycardia, no gallops, no rubs Abdomen: Abdomen distended but soft and significant improvement since admission. Discharge Data Studies Completed and Pending Completed Studies During Hospitalization Category Date Time Status CT abdomen pelvis w con* [id number] Stat Cat Scan 07/13/24 19:17 Completed [place] paracentesis abd w [id number] Routine Ultrasound 07/16/24 23:58 Completed Pending at discharge Category Date Time Status Amylase, Peritoneal Fluid Routine Lab 07/14/24 13:45 Received Body Fluid Culture & GS Routine Lab 07/14/24 13:45 Results Cytology [PTH] Routine Pth 07/14/24 13:45 Received Radiology Impressions Abdomen/Pelvis CT 07/13/24 19:17 IMPRESSION: 1. Cirrhotic liver. 2. Large amount of abdominal ascites. 3. Prior ventral hernia repair with mesh. Lobulated fluid collections within the subcutaneous fat just superficial to the anterior abdominal wall measuring up to 8.7 x 5.4 cm. This fluid is the same attenuation as the ascites. Paracentesis Ultrasound 07/16/24 23:58 IMPRESSION: Uncomplicated paracentesis yielding 3850 ml of peritoneal fluid. Laboratory Results WBC 3.04 10^3/uL (3.29-11.43) L 07/17/24 04:17 RBC 3.76 10^6/uL (3.85-5.65) L 07/17/24 04:17 Hgb 11.90 g/dL (11.27-16.99) 07/17/24 04:17 Hct 36.0 % (36-47) 07/17/24 04:17 MCV 95.7 fl (85-98) 07/17/24 04:17 MCH 31.6 pg (27-33) 07/17/24 04:17 MCHC 33.1 g/dL (30-55) 07/17/24 04:17 RDW 14.2 % (12.1-15.1) 07/17/24 04:17 Plt Count 84 10^3/cmm (157-399) L 07/17/24 04:17 MPV 9.7 fL (7.4-10.4) 07/17/24 04:17 Neut % (Auto) 63.1 % 07/17/24 04:17 Lymph % (Auto) 20.1 % 07/17/24 04:17 Rolette % (Auto) 10.9 % 07/17/24 04:17 Eos % (Auto) 4.9 % 07/17/24 04:17 Baso % (Auto) 0.7 % 07/17/24 04:17 Neut # (Auto) 1.92 10^3/uL (1.8-7.7) 07/17/24 04:17 Lymph # (Auto) 0.6 10^3/uL (0.8-4.8) L 07/17/24 04:17 Rolette # (Auto) 0.3 10^3/uL (0.2-0.9) 07/17/24 04:17 Eos # (Auto) 0.2 10^3/uL (0.0-0.8) 07/17/24 04:17 Baso # (Auto) 0.0 10^3/uL (0.0-0.1) 07/17/24 04:17 Nucleated RBC % (auto) 0 % 07/17/24 04:17 Nucleated RBCs # 0.0 /100WBC 07/17/24 04:17 Differential Comment Yes 07/16/24 13:55 PT 16.10 SECONDS (12.1-14.9) H 07/16/24 11:42 INR 1.24 (0.8-1.2) H 07/16/24 11:42 APTT 39.6 SECONDS (23.9-36.7) H 07/14/24 04:30 Sodium 141 mmol/L (136-145) 07/17/24 04:17 Potassium 3.2 mmol/L (3.5-5.1) L 07/17/24 04:17 Chloride 107 mmol/L (98-107) 07/17/24 04:17 Carbon Dioxide 23 mmol/L (22-29) 07/17/24 04:17 Anion Gap 14.2 (5-19) 07/17/24 04:17 BUN 11 mg/dL (6-20) 07/17/24 04:17 Creatinine 0.4 mg/dL (0.5-0.9) L 07/17/24 04:17 GFR Calculation 163.4 mL/min (90-130) H 07/17/24 04:17 Glucose 89 mg/dL (65-115) 07/17/24 04:17 Calculated Osmolality 291 mOsm/kg (285-295) 07/17/24 04:17 Lactic Acid 1.3 mmol/L (0.5-2.2) 07/13/24 16:59 Calcium 8.1 mg/dL (8.5-10.5) L 07/17/24 04:17 Phosphorus 3.3 mg/dL (2.5-4.5) 07/14/24 04:30 Magnesium 2.0 mg/dL (1.7-2.3) 07/17/24 04:17 Total Bilirubin 1.4 mg/dL (0.15-1.2) H 07/17/24 04:17 Direct Bilirubin 0.50 mg/dL (0.00-0.30) H 07/14/24 04:30 AST 39 U/L (0-32) H 07/17/24 04:17 ALT 26 U/L (0-33) 07/17/24 04:17 Alkaline Phosphatase 56 U/L (35-105) 07/17/24 04:17 Total Protein 6.2 g/dL (6.6-8.7) L 07/17/24 04:17 Albumin 2.9 g/dL (3.5-5.2) L 07/17/24 04:17 Globulin 3.3 g/dL (1.3-4.6) 07/17/24 04:17 Lipase 31 U/L (13-60) 07/13/24 16:59 Urine Color Dark yellow (Yellow) A 07/13/24 19:53 Urine Appearance Clear (CLEAR) 07/13/24 19:53 Urine pH 7.0 (5-7) 07/13/24 19:53 Ur Specific [place] 1.053 (1.005-1.030) H 07/13/24 19:53 Urine Protein Trace (Negative) A 07/13/24 19:53 Urine Glucose (UA) Negative (Normal) 07/13/24 19:53 Urine Ketones 1+ (Negative) H 07/13/24 19:53 Urine Blood Negative (Negative) 07/13/24 19:53 Urine Nitrate Negative (Negative) 07/13/24 19:53 Urine Bilirubin Negative (Negative) 07/13/24 19:53 Urine Urobilinogen 1.0 mg/dL (Negative) 07/13/24 19:53 Ur Leukocyte Esterase Trace (Negative) A 07/13/24 19:53 Urine RBC 11-20 /hpf (0-2) H 07/13/24 19:53 Urine WBC 0-5 /hpf (0-5) 07/13/24 19:53 Ur Squamous Epith Cells 6-10 /hpf (0-5) 07/13/24 19:53 Amorphous Sediment Not Reportable 07/13/24 19:53 Urine Bacteria Trace /hpf (NONE) 07/13/24 19:53 Hyaline Casts 7.01 /lpf 07/13/24 19:53 Urine Yeast Trace /hpf 07/13/24 19:53 Fluid Color Yellow 07/16/24 13:55 Fluid Appearance Cloudy 07/16/24 13:55 Fluid Specific Grav 1.014 07/16/24 13:55 Fluid pH 7.5 07/16/24 13:55 Fluid WBC 135 /uL 07/16/24 13:55 Fluid RBC 0 10^3/uL 07/16/24 13:55 Fld Polynuclear WBCs # 0.017 07/16/24 13:55 Fld Polynuclear WBCs % 12.600 % 07/16/24 13:55 Fl Mononucl WBCs #(Auto) 0.118 07/16/24 13:55 Fl Mononuclear % Auto 87.400 % 07/16/24 13:55 Fld Crystal Laterality Ascites 07/16/24 13:55 Fluid Glucose 97.0 mg/dL 07/16/24 13:55 Fluid Total Protein 1.1 g/dL 07/16/24 13:55 Fluid Albumin 0.6 g/dL 07/16/24 13:55 Fluid LDH 43 U/L 07/16/24 13:55 Fluid Alk Phosphatase 22 IU/L 07/16/24 13:55 Fluid Cholesterol 20 mg/dL (0-200) 07/16/24 13:55 Fluid Triglycerides 54 mg/dL (0-150) 07/16/24 13:55 Fluid Uric Acid 5 mg/dL 07/16/24 13:55 Vitals Last Vital Signs Temp 97.6 F 07/17/24 08:00 Pulse 66 07/17/24 08:00 Resp 15 07/17/24 08:00 BP 123/76 07/17/24 08:00 Pulse Ox 97 07/17/24 08:00 O2 Del Method Room Air 07/17/24 08:00 Discharge Plan Discharge Patient Disposition: Home Condition: Stable Prescriptions: New lactulose 20 gram/30 mL Solution 20 g PO DAILY PRN (Reason: Constipation (see protocol)) Qty: 1200 0RF furosemide [Lasix] 40 mg tablet 40 mg PO DAILY Qty: 30 0RF spironolactone 50 mg tablet 25 mg PO DAILY Qty: 30 0RF Continued fexofenadine [Sofi Allergy] 60 mg tablet 60 mg PO BID PRN (Reason: allergies) Xifaxan 550 mg tablet 550 mg PO BID budesonide-formoterol [Breyna] 160-4.5 mcg/actuation HFA aerosol inhaler 2 puff INHALATION BID Airsupra 90-80 mcg/actuation HFA aerosol inhaler 2 inh INHALATION Q4H PRN (Reason: Shortness Of Breath) Discontinued triamterene-hydrochlorothiazid 37.5-25 mg capsule 1 cap PO DAILY Discharge Orders: Discharge Order (Routine); Ordered 07/17/24 Ordered By: Reba Wade Referrals: Mayelin Woodward MD [Referring] - 07/24/24 (Please keep your appointment that was scheduled prior to this hospital stay. Discharge summary faxed to Dr Woodward's office.) Nora French FNP [Primary Care Provider] - 07/19/24 11:30 am Discharge Diet: Low Salt Discharge Activity: Resume usual activity Patient Instructions: Opioid Safety Discharge Attestations Time Spent in Discharge Care*: greater than 30 min Quality Metrics Clinical Quality Measures [ No reported AMI, CVA or VTE this stay] Coding Level of Care Code Acute Code for Chg Fwd Diagnoses Advanced cirrhosis of liver K74.60 Ascites R18.8 Hypokalemia E87.6
[2024-07-17] MEDS: rifaximin 200 mg Tablet 600 MG PO (10:33)
[2024-07-17] MEDS: potassium chloride ER 20 mEq Tablet 40 MEQ PO (10:33)
[2024-07-17] MEDS: albumin 12.5 GM/50 ML VIAL IV (11:09)
[2024-07-17 11:37] VITALS: BP 116/67; PULSE 61; RESP 14; TEMP 36.8; O2SAT 97
[2024-07-17 15:10] VITALS: BP 116/67; PULSE 61; RESP 14; TEMP 36.8; O2SAT 97
[2024-07-19 20:35] LABS: Amylase, Peritoneal Fluid <10 U/L
== END 2024-07-17 15:12 | disposition home or self-care (01) ==
LOC: ER 19:20 → MEDSURG 22:22
PROVIDERS: Emergency Medicine; Student in an Organized Health Care Education/Training Program; Admitting Provider Internal Medicine; Emergency Provider Nurse Practitioner; PCP Nurse Practitioner Family; Visit Provider Internal Medicine
DX: K74.60 Unspecified cirrhosis of liver (principal); R18.8 Other ascites; E87.6 Hypokalemia; J45.909 Unspecified asthma, uncomplicated; Z91.014 Allergy to mammalian meats; I10 Essential (primary) hypertension; F41.9 Anxiety disorder, unspecified; R74.01 Elevation of levels of liver transaminase levels
CPT/HCPCS: 36415; 49083; 74177; 80048; 80053; 80076; 80503; 81001; 82042; 82150; 82465; 82945; 83605; 83615; 83690; 83735; 83986; 84075; 84100; 84157; 84315; 84478; 84560; 85025; 85610; 85730; 87070; 87075; 87086; 87205; 88112; 88305; 89050; 93005; 94640; 96365; 96367; 96375; 99285; G0378; J1940; J2405; J3475; J7626; P9047

== ENCOUNTER 2025-01-08 11:39 | Emergency (ER) | payer BC, SELFPAY ==
[2025-01-08 11:48] VITALS: BP 135/78; PULSE 67; RESP 18; TEMP 36.6; O2SAT 99
[2025-01-08 12:09] LABS: Basophils % 0.5 %; Eosinophils # 0.2 10^3/uL (0.0-0.8); Eosinophils % 5.4 %; Hematocrit 39.2 % (36-47); Lymphocytes # 0.7 10^3/uL (0.8-4.8); Lymphocytes % 17.4 %; Mean Corpuscular HGB Conc 32.7 g/dL (30-55); Mean Corpuscular Hemoglobin 30.8 pg (27-33); Mean Corpuscular Volume 94.2 fl (85-98); Mean Platelet Volume 9.8 fL (7.4-10.4); Monocytes # 0.4 10^3/uL (0.2-0.9); Monocytes % 9.5 %; Neutrophils # 2.62 10^3/uL (1.8-7.7); Neutrophils % 66.9 %; Nucleated Red Blood Cells % 0 %; Platelet Count 132 10^3/cmm (157-399); Red Blood Count 4.16 10^6/uL (3.85-5.65); Red Cell Distribution Width 14.4 % (12.1-15.1); White Blood Count 3.91 10^3/uL (3.29-11.43)
--- OUTSIDE RECORDS SUMMARY | 2025-01-08 12:10 | XMS_ITS | Encounter Summary ---
Author Organization [facility] Address [address] [facility] [address] Attn: [place] [address] Care Team Providers Care Driver Supervisor Name Role Phone Patricio Castorena MD Primary Care Provider [phone] Encounter Details Date Type Department Care Team (Late st Contact Info) Description 08/09/2007 Outpatient Historical Antoine Webb MD [address] [facility] [address] [place] [address] Social History Tobacco Use Types Packs/Day Years Used Date Smoking Tobacco: Never Assessed Comments Unknown Sex and Gender Information Value Date Recorded Sex Assigned at Not on file Legal Sex Female 2:56 AM STAFF ACCOUNTANT Gender Identity Not on file Sexual Orientation Not on file documented as of this encounter Plan of Treatment Not on file documented as of this encounter Procedures Procedure Name Priority Date/Time Associated Diagnosis Comments ACUTE HEPATITIS PANEL Routine 08/09/2007 12:55 PM STAFF ACCOUNTANT CERULOPLASMIN Routine 08/09/2007 12:55 PM STAFF ACCOUNTANT documented in this encounter Results * CERULOPLASMIN (08/09/2007 12:55 PM STAFF ACCOUNTANT) CERULOPLASMIN 41.7 25.0 - 63.0 mg/dL INTERFACE SYSTEM 08/09/2007 12:5 5 PM STAFF ACCOUNTANT us Antoine R Webb MD CHEMISTRY ORDERABLES Edited Performing Organization Address [facility] de Phone Number INTERFACE SYSTEM Refer to clinic/hospital department * ACUTE HEPATITIS PANEL (08/09/2007 12:55 PM STAFF ACCOUNTANT) HEPATITIS B SURFACE AG Negative Negative INTERFACE SYSTEM HEPATITIS B CORE IGM Negative Negative INTERFACE SYSTEM HEPATITIS A IGM Negative Negative INTE RFACE SYSTEM HEPATITIS C AB Negative Negative INTER FACE SYSTEM Comment: HCV antibody testing is performed by E.I.A. methodology. CDC recommends positive HCV antibody tests have confirmation testing. Low positive results should be confirmed with RIBA. This will determine if results are false positive. If a high positive result is obtained an HCV RNA may be run. The RNA test confirms infection and the level of the RNA, to some extent, helps guide treatment. The same specimen can be used for RIBA and will be held for 7 days. Please contact the Immunology lab if RIBA testing is desired. However, if HCV RNA testing is desired, a new specimen must be collected. Blood should be collected in SST (serum) or EDTA (plasma) separation tubes. Separate serum or plasma from whole blood within 6 hours of collection. Serum or plasma can be transported at refrigerated temperature or frozen and transported. 08/09/2007 12:5 5 PM STAFF ACCOUNTANT Antoine Webb MD CHEMISTRY ORDERABLES Edited Performing Organization Address [facility] de Phone Number INTERFACE SYSTEM Refer to clinic/hospital department documented in this encounter Visit Diagnoses Not on filedocumented in this encounter Care Teams Driver Supervisor Relationship Specialty Start Date End Date Patricio Castorena MD [address] [place] [address] PCP - General Internal Medicine 04/07/17 documented as of this encounter
--- OUTSIDE RECORDS SUMMARY | 2025-01-08 12:10 | XMS_ITS | Encounter Summary ---
Author Organization [facility] Address [address] [place] [address] Care Team Providers Care Road Traffic Controller Name Role Phone Patricio Castorena MD Primary Care Provider [phone] Encounter Details Date Type Department Care Team (Late st Contact Info) Description 05/17/2008 Outpatient [facility] [address] [address] Social History Tobacco Use Types Packs/Day Years Used Date Smoking Tobacco: Never Alcohol Use Standard Drinks/Week Comments No 0 (1 standard drink = 0.6 oz pur e alcohol) Comments No Sex and Gender Information Value Date Recorded Sex Assigned at Not on file Legal Sex Female 2:56 AM SUPERVISOR HEADING Gender Identity Not on file Sexual Orientation Not on file 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
--- OUTSIDE RECORDS SUMMARY | 2025-01-08 12:10 | XMS_ITS | Encounter Summary ---
Author Organization [facility] Address [address] [place] [address] Care Team Providers Care Cloth Washer Back Tender Name Role Phone Patricio Castorena MD Primary Care Provider [phone] Encounter Details Date Type Department Care Team (Latest Contact Info) Description 02/22/2007 Outpatient Historical [facility] [address] [place] [address] [address] [place] [address] Sushil Kearns MD [address] [place] [address] Malig Duane Corpus Uteri (Primary Dx) Social History Tobacco Use Types Packs/Day Years Used Date Smoking Tobacco: Never Assessed Comments Unknown Sex and Gender Information Value Date Recorded Sex Assigned at Not on file Legal Sex Female 2:56 AM SHANK CUTTER Gender Identity Not on file Sexual Orientation Not on file documented as of this encounter Plan of Treatment Not on file documented as of this encounter Visit Diagnoses Diagnosis 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
--- OUTSIDE RECORDS SUMMARY | 2025-01-08 12:10 | XMS_ITS | Encounter Summary ---
Author Organization [facility] Address [address] [place] [address] Care Team Providers Care Downstairs Maid Name Role Phone Patricio Castorena MD Primary Care Provider [phone] Reason for Referral * Outpatient Services (Routine) - Closed Specialty Diagnoses / Procedures Referred By Shailesh almaraz Referred To Contact Diagnoses Encounter for screening mammogram for malignant neoplasm of breast Procedures MAMMO SCRN BILAT 3D FATMATA W OR WO CAD MAMMO SCREEN BILAT W OR WO CAD Jeanine Cox FNP Phone: tel: fax: [facility] Pre-Registration [place] CALL TO MAKE APPOINTMENT ONLY [address] [place] [address] Phone: tel: fax: Referral ID Status Reason Start Date Expiration Date Visits Re quested Visits Authorized [id number] Closed 04/22/2017 05/23/2018 1 1 Encounter Details Date Type Department Care Team (Latest Contact Info) Description 04/22/2017 Ancillary Orders [facility] External Department [address] [place] [address] Jeanine Cox FNP [address] [place] [address] Encounter for screening mammogram for malignant neoplasm of breast Social History Tobacco Use Types Packs/Day Years Used Date Smoking Tobacco: Never Smokeless Tobacco: Never Alcohol Use Standard Drinks/Week Comments No 0 (1 standard drink = 0.6 oz pur e alcohol) Comments No Sex and Gender Information Value Date Recorded Sex Assigned at Not on file Legal Sex Female 2:56 AM PRECISION LATHE OPERATOR Gender Identity Not on file Sexual Orientation Not on file 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 Not on file No t on file Not on file Not on file Not on file Not on file documented as of this encounter Plan of Treatment Not on file documented as of this encounter Results * MAMMO SCRN BILAT 3D FATMTAA W OR WO CAD (05/24/2017 12:42 PM PRECISION LATHE OPERATOR) Anatomical Region Laterality Modality Breast Bilateral Mammography Narrative 05/25/2017 9:08 AM PRECISION LATHE OPERATOR Bilateral Mammogram Reason for Exam: Screening Comparison: Compared to: 05/14/2016 MAMMO DIGITAL SCREEN BILAT, 03/17/2015 MAMMO DIGITAL SCREEN BILAT, 11/22/2012 MAMMO DIGITAL SCREEN BILAT, 06/02/2009 MAMMO DIGITAL SCREEN BILAT, and 05/17/2008 MAMMO SCREENING BILAT Technique: 3D MLO and CC digital tomosynthesis images were acquired and synthesized 2D images (C view) were generated. This digital mammogram was also analyzed by the Computer Aided Detection System CAD). Breast Composition: There are scattered areas of fibroglandular density. There are no suspicious masses, areas of architectural distortions, or microcalcifications to suggest malignancy. No significant new findings since the prior mammogram(s). Jeanine Cox POLICE DEPARTMENT SECRETARY MAMMO ORDERABLES Final Resul t documented in this encounter Visit Diagnoses Diagnosis Encounter for screening mammogram for malignant neoplasm of breast Other screening mammogram Encounter for screening mammogram for malignant neoplasm of breast Other screening mammogram documented in this encounter Care Teams Downstairs Maid Relationship Specialty Start Date End Date Patricio Castorena MD [address] [place] [address] PCP - General Internal Medicine 04/07/17 documented as of this encounter
--- OUTSIDE RECORDS SUMMARY | 2025-01-08 12:10 | XMS_ITS | Encounter Summary ---
Author Organization [facility] Address [address] [place] [address] Care Team Providers Care Site Engineer Name Role Phone Patricio Castorena MD Primary Care Provider [phone] Encounter Details Date Type Department Care Team (Late st Contact Info) Description 08/24/2007 Outpatient Historical [facility] [address] [place] [address] [address] [place] [address] Sushil Kearns MD [address] [place] [address] Social History Tobacco Use Types Packs/Day Years Used Date Smoking Tobacco: Never Assessed Comments Unknown Sex and Gender Information Value Date Recorded Sex Assigned at Not on file Legal Sex Female 2:56 AM TOBACCO PREVENTION HEALTH EDUCATOR Gender Identity Not on file Sexual Orientation Not on file documented as of this encounter Plan of Treatment Not on file documented as of this encounter Visit Diagnoses Not on filedocumented in this encounter Care Teams Site Engineer Relationship Specialty Start Date End Date Patricio Castorena MD [address] [place], [place] [address] PCP - General Internal Medicine 04/07/17 documented as of this encounter
--- OUTSIDE RECORDS SUMMARY | 2025-01-08 12:10 | XMS_ITS | Encounter Summary ---
Author Organization [facility] Address [address] [place] [address] Care Team Providers Care Choral Director Name Role Phone Patricio Castorena MD Primary Care Provider [phone] Encounter Details Date Type Department Care Team (Latest Contact Info) Description 08/09/2007 Outpatient Historical [facility] [address] [place] [address] Antoine Webb MD [address] [facility] [address] [place] [address] Elev Transaminase/Ldh Social History Tobacco Use Types Packs/Day Years Used Date Smoking Tobacco: Never Assessed Comments Unknown Sex and Gender Information Value Date Recorded Sex Assigned at Not on file Legal Sex Female 2:56 AM MILL ROLL REWINDER Gender Identity Not on file Sexual Orientation Not on file documented as of this encounter Plan of Treatment Not on file documented as of this encounter Visit Diagnoses Diagnosis Nonspecific elevation of levels of transaminase or lactic acid dehydrogenase (LDH) documented in this encounter Care Teams Choral Director Relationship Specialty Start Date End Date Patricio Castorena [place] [address] [place] [address] PCP - General Internal Medicine 04/07/17 documented as of this encounter
--- OUTSIDE RECORDS SUMMARY | 2025-01-08 12:10 | XMS_ITS | Encounter Summary ---
Author Organization [facility] Address [address] [place] [address] Care Team Providers Care Training Development Director Name Role Phone Patricio Castorena MD Primary Care Provider [phone] Encounter Details Date Type Department Care Team (Latest Contact Info) Description 05/01/2007 Outpatient [facility] [address] [place] [address] Sushil Kearns MD [address] [place] [address] Other Screening Mammogram (Primary Dx) Social History Tobacco Use Types Packs/Day Years Used Date Smoking Tobacco: Never Assessed Comments Unknown Sex and Gender Information Value Date Recorded Sex Assigned at Not on file Legal Sex Female 2:56 AM ACCIDENT INVESTIGATOR Gender Identity Not on file Sexual Orientation Not on file documented as of this encounter Plan of Treatment Not on file documented as of this encounter Visit Diagnoses Diagnosis Other screening mammogram- Primary documented in this encounter Care Teams Training Development Director Relationship Specialty Start Date End Date Patricio Castorena MD [address] [place], [place] [address] PCP - General Internal Medicine 04/07/17 documented as of this encounter
--- OUTSIDE RECORDS SUMMARY | 2025-01-08 12:10 | XMS_ITS | Encounter Summary ---
Author Organization [facility] Address [address] [place] [address] Care Team Providers Care Diabetes Clinical Manager Name Role Phone Patricio Castorena MD Primary Care Provider [phone] Reason for Referral * Outpatient Services (Routine) - Closed Specialty Diagnoses / Procedures Referred By Shailesh almaraz Referred To Contact Diagnoses Other screening mammogram Procedures MAMMO DIGITAL SCREEN BILAT Nelson Cuevas MD Phone: tel: fax: [facility] Pre-Registration [place] CALL TO MAKE APPOINTMENT ONLY [address] [place] [address] Phone: tel: fax: Referral ID Status Reason Start Date Expiration Date Visits Re quested Visits Authorized [id number] Closed 02/13/2015 03/15/2016 1 1 Encounter Details Date Type Department Care Team (Latest Contact Info) Description 02/13/2015 Ancillary Orders [facility] Pre-Registration [place] CALL TO MAKE APPOINTMENT ONLY [address] [place] [address] Nelson Cuevas MD [address] [place] [address] Other screening mammogram (Primary Dx) Social History Tobacco Use Types Packs/Day Years Used Date Smoking Tobacco: Never Smokeless Tobacco: Never Alcohol Use Standard Drinks/Week Comments No 0 (1 standard drink = 0.6 oz pur e alcohol) Comments No Sex and Gender Information Value Date Recorded Sex Assigned at Not on file Legal Sex Female 2:56 AM SLEDGER Gender Identity Not on file Sexual Orientation Not on file 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 Not on file No t on file Not on file Not on file Not on file Not on file documented as of this encounter Plan of Treatment Not on file documented as of this encounter Results * MAMMO DIGITAL SCREEN BILAT (03/17/2015 1:23 PM CDT) Anatomical Region Laterality Modality Breast Bilateral Mammography Narrative 03/18/2015 1:34 PM CDT Bilateral Mammogram Reason for Exam: Screening Comparison: Compared to: 11/22/2012 MAMMO DIGITAL SCREEN BILAT, 06/20/2009 MAMMO DIGITAL DIAG UNI LEFT, 06/02/2009 MAMMO DIGITAL SCREEN BILAT, 05/17/2008 MAMMO SCREENING BILAT Findings: Bilateral CC and MLO views were obtained. This examination was reviewed with the aid of a computer-aided detection system(CAD). The breast tissue density is average. No significant new findings since the prior mammogram(s). Nelson Cuevas MD MAMMO ORDERABLES Final Result documented in this encounter Visit Diagnoses Diagnosis Other screening mammogram- Primary Other screening mammogram documented in this encounter Care Teams Diabetes Clinical Manager Relationship Specialty Start Date End Date Patricio Castorena MD [address] [place] [address] PCP - General Internal Medicine 04/07/17 documented as of this encounter
--- OUTSIDE RECORDS SUMMARY | 2025-01-08 12:10 | XMS_ITS | Encounter Summary ---
Author Organization [facility] Address [address] [place] [address] Care Team Providers Care Wool Dyer Name Role Phone Patricio Castorena MD Primary Care Provider [phone] Encounter Details Date Type Department Care Team (Late st Contact Info) Description 04/22/2017 Ancillary Orders [facility] Pre-Registration [place] CALL TO MAKE APPOINTMENT ONLY [address] [place] [address] Jeanine Cox, INTERNAL AFFAIRS INVESTIGATOR [address] [place] [address] Social History Tobacco Use Types Packs/Day Years Used Date Smoking Tobacco: Never Smokeless Tobacco: Never Alcohol Use Standard Drinks/Week Comments No 0 (1 standard drink = 0.6 oz pur e alcohol) Comments No Sex and Gender Information Value Date Recorded Sex Assigned at Not on file Legal Sex Female 2:56 AM SOLAR ENERGY ADVISOR Gender Identity Not on file Sexual Orientation Not on file 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
--- OUTSIDE RECORDS SUMMARY | 2025-01-08 12:10 | XMS_ITS | Encounter Summary ---
Author Organization [facility] Address [address] [place] [address] Care Team Providers Care Teacher Learning Disabled Name Role Phone Patricio Castorena MD Primary Care Provider [phone] Encounter Details Date Type Department Care Team (Latest Contact Info) Description 05/01/2007 Outpatient Historical [facility] Breast [place] [address] [id number] Uche Duncan MD NO ADDRESS ON FILE Other Screening Mammogram (Primary Dx) Social History Tobacco Use Types Packs/Day Years Used Date Smoking Tobacco: Never Assessed Comments Unknown Sex and Gender Information Value Date Recorded Sex Assigned at Not on file Legal Sex Female 2:56 AM PHYSICAL THERAPY RESIDENT Gender Identity Not on file Sexual Orientation Not on file documented as of this encounter Plan of Treatment Not on file documented as of this encounter Visit Diagnoses Diagnosis Other screening mammogram- Primary documented in this encounter Care Teams Teacher Learning Disabled Relationship Specialty Start Date End Date Patricio Castorena MD [address] [place] [address] PCP - General Internal Medicine 04/07/17 documented as of this encounter
--- OUTSIDE RECORDS SUMMARY | 2025-01-08 12:10 | XMS_ITS | Encounter Summary ---
Author Organization [facility] Address [address] [place] [address] Care Team Providers Care Application Architect Name Role Phone Patricio Castorena MD Primary Care Provider [phone] Reason for Referral * Outpatient Services (Routine) - Closed Specialty Diagnoses / Procedures Referred By Shailesh almaraz Referred To Contact Diagnoses Visit for screening mammogram Procedures MAMMO DIGITAL SCREEN Nelson Ogden MD Phone: tel: fax: Referral ID Status Reason Start Date Expiration Date Visits Re quested Visits Authorized [id number] Closed 03/24/2016 04/24/2017 1 1 Encounter Details Date Type Department Care Team (Latest Contact Info) Description 03/24/2016 Ancillary Orders [facility] Pre-Registration [place] CALL TO MAKE APPOINTMENT ONLY [address] [place] [address] Nelson Cuevas MD [address] [place] [address] Visit for screening mammogram (Primary Dx) Social History Tobacco Use Types Packs/Day Years Used Date Smoking Tobacco: Never Smokeless Tobacco: Never Alcohol Use Standard Drinks/Week Comments No 0 (1 standard drink = 0.6 oz pur e alcohol) Comments No Sex and Gender Information Value Date Recorded Sex Assigned at Not on file Legal Sex Female 2:56 AM BUSINESS SEGMENT MANAGER Gender Identity Not on file Sexual Orientation Not on file 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 Not on file Not on file No t on file Not on file Not on file Not on file Not on file documented as of this encounter Plan of Treatment Not on file documented as of this encounter Results * MAMMO DIGITAL SCREEN BILAT (05/14/2016 11:47 AM CDT) Anatomical Region Laterality Modality Breast Bilateral Mammography Narrative 05/17/2016 11:22 AM CDT Bilateral Mammogram Reason for Exam: Screening Comparison: Compared to: 03/17/2015 MAMMO DIGITAL SCREEN BILAT, 11/22/2012 MAMMO DIGITAL SCREEN BILAT, 06/20/2009 MAMMO DIGITAL DIAG UNI LEFT, 06/02/2009 MAMMO DIGITAL SCREEN BILAT, 05/17/2008 MAMMO SCREENING BILAT 10.15.07 Findings: Bilateral CC and MLO views were obtained. This examination was reviewed with the aid of a computer-aided detection system(CAD). The breast tissue density is average. No significant new findings since the prior mammogram(s). us Nelson Cuevas MD MAMMO ORDERABLES Final Result documented in this encounter Visit Diagnoses Diagnosis Visit for screening mammogram- Primary Other screening mammogram Visit for screening mammogram Other screening mammogram documented in this encounter Care Teams Application Architect Relationship Specialty Start Date End Date Patricio Castorena MD [address] [place] [address] PCP - General Internal Medicine 04/07/17 documented as of this encounter
--- OUTSIDE RECORDS SUMMARY | 2025-01-08 12:10 | XMS_ITS | Encounter Summary ---
Author Organization [facility] Address [address] [place] [address] Care Team Providers Care Fur Farmer Name Role Phone Patricio Castorena MD Primary Care Provider [phone] Encounter Details Date Type Department Care Team (Late st Contact Info) Description 08/09/2007 Outpatient [facility] Gastroenter[facility] [place] [phone] Antoine Webb MD [address] [facility] [address] [place] [address] Social History Tobacco Use Types Packs/Day Years Used Date Smoking Tobacco: Never Assessed Comments Unknown Sex and Gender Information Value Date Recorded Sex Assigned at Not on file Legal Sex Female 2:56 AM PROFESSIONAL SERVICES MANAGER Gender Identity Not on file Sexual Orientation Not on file documented as of this encounter Consult Notes * Antoine Webb MD - 08/09/2007 12:00 AM CST Patient Name: Kerri Silvestre DOS: 08/09/2007 : 1965 CONSULTATION REQUESTING PHYSICIAN: Joycelyn Bravo D.O. VITALS: Weight: 228.0 pounds. Pulse: 80. BP: 114/84. REASON FOR CONSULTATION: Elevated liver function tests. HISTORY OF PRESENT ILLNESS: Ms. Silvestre is a 41 year-old female who reports that she has been noted to have some elevated liverfunction tests in the past. She was seen at the [facility] approximately ten to twelve years ago due to some elevated liver function tests. At that time she was told she had a ???spot?? on her liver. She underwent a CT guided biopsy. The spot came back as fatty changes and she was toldthat further work-up was not necessary. She has not been followed for any liver disease since that time. She reports she has not had any liver function testing performed until recently. Recently, shehas been seen by her physician in [place] and had routine blood work performed. She was noted to have some elevated liver function tests and she was referred to me for further evaluation and testing. She denies any over the counter herbal supplement use. She denies any significant alcohol use or abuse. She does report that her mother is followed at [facility] for autoimmune hepatitis and is currently being evaluated for a possible liver transplant. CURRENT MEDICATIONS: Ranitidine Enalapril Fiorinal p.r.n. PhenaVent LA p.r.n. ALLERGIES: Penicillin causes rash and hives. PAST SURGICAL HISTORY: Status post D&C in 2004, status post hysterectomy in 2004 secondary to ovarian cancer, history of a staph infection in 2004, status post hernia repair in 2005. PAST MEDICAL HISTORY: Includes a history of high blood pressure and a history of ovarian cancer. FAMILY HISTORY: Her father is alive at the age of 61 and is in fairly good health. Her mother is alive at the age of 61 and has liver cirrhosis, kidney disease, history of seizures, diabetes, heart disease and high blood pressure. She has one child, age 14, who has heart problems. SOCIAL HISTORY: She is and has been for 19 years. 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 She doesnot smoke and does not drink alcohol. She has no history of IV drug use. REVIEW OF SYSTEMS HEALTH QUESTIONNAIRE: GENERAL: she admits to a weight gain, fever, night sweats, but denies any decreased appetites, weakness, fatigue, diabetes, thyroid disease. HEAD & NECK: she denies any blurry vision, double vision, glaucoma, cataracts. LUNGS: she does admit to a daily cough, wheezing, asthma, loud snoring, but denies any dyspnea or TB exposure. STOMACH & BOWELS: she denies any dysphagia, odynophagia, nausea, vomiting, peptic ulcer disease, gallbladder disease, jaundice, hepatitis, pancreatitis. She does admit to irritable bowel syndrome. She had a colonoscopy done approximately eight years ago here at [place] and according to the patient, it was normal. HEART & CIRCULATION: she denies any chest pain, irregular heartbeat, orthopnea, ankle or foot swelling, but does admit to some high blood pressure. KIDNEYS & BLADDER: she denies any dysuria or hematuria. BONES & JOINTS: she denies any joint pains, red, warm, or swollen joints, morning joint stiffness, back pain, gout. BLOOD: she denies any history of anemia, swollen lymph nodes, cancers. NEURO: she denies any history of seizures, strokes, fainting spells, but does admit to severe headaches. PSYCH: she does admit to problems in the past with depression, but denies any crying spells, panic attacks. She does admit to significant stress in her life. PHYSICAL EXAMINATION: GENERAL: she is alert, oriented, in no acute distress, and a good historian. HEENT: pupils are equally round and reactive to light. Extraocular movements are intact. There is no pallor, no scleral icterus. Posterior pharynx is clear. NECK: supple without adenopathy. LUNGS: clear to auscultation bilaterally. HEART: regular rate and rhythm without murmur, clicks, rubs, or gallops. ABDOMEN: she has no hepato- or splenomegaly. She is morbidly obese. There is no fluid wave. There is no shifting dullness. She has normoactive bowel sounds and is nontender. EXTREMITIES: no clubbing, cyanosis, or edema. NEURO: no focal neurologic deficits. Cranial nerves II-XII are grossly intact. RECTAL EXAM: deferred. IMPRESSION: 1) 41 year-old female with elevated liver function tests. PLAN: 1) Elevated liver function tests: I discussed with the patient that at this time I feel that additional work-up is certainly indicated due to the longevity of her elevated liver function tests. I suspect most likely she has nonalcoholic fatty liver disease causing her liver function tests to be elevated, however, I feel that other possible etiologies especially given her history of her mother having cirrhosis is certainly indicated. I will check her today for autoimmune hepatitis, Wilsons disease, hemochromatosis, primary biliary cirrhosis markers. I will check hepatitis A, B & C markers on her as well. I will also send her for a right upper quadrant ultrasound so that the echotexture of her liver can be evaluated and look for fatty changes. Also, the previous abnormal lesion that wasidentified on her CT scan can be evaluated as well during her ultrasound. She is to follow-up with me in one month to discuss the results of the above tests. A copy of this consult was sent to Joycelyn Bravo D.O. Antoine Webb M.D. Gastroenterology Electronically Signed by Antoine Webb M.D. 08/11/2007 17:52 , P, 223 Job #: Document #: [id number] cc: Joycelyn Bravo D.O. ESSIONAL SERVICES MANAGER documented in this encounter Plan of Treatment Not on file documented as of this encounter Visit Diagnoses Not on filedocumented in this encounter Care Teams Fur Farmer Relationship Specialty Start Date End Date Patricio Castorena MD [address] [place] [address] PCP - General Internal Medicine 04/07/17 documented as of this encounter
--- OUTSIDE RECORDS SUMMARY | 2025-01-08 12:10 | XMS_ITS | Encounter Summary ---
Author Organization [facility] Address [address] [place] [address] Care Team Providers Care Form Grader Name Role Phone Patricio Castorena MD Primary Care Provider [phone] Encounter Details Date Type Department Care Team (Late st Contact Info) Description 05/14/2008 Outpatient [facility] [address] [place] [address] Fortino Akers MD [address] [place] [address] Social History Tobacco Use Types Packs/Day Years Used Date Smoking Tobacco: Never Alcohol Use Standard Drinks/Week Comments No 0 (1 standard drink = 0.6 oz pur e alcohol) Comments No Sex and Gender Information Value Date Recorded Sex Assigned at Not on file Legal Sex Female 2:56 AM RHIC SYSTEMS SAFETY ENGINEER Gender Identity Not on file Sexual Orientation Not on file 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 Not on file Not on file No t on file documented as of this encounter Plan of Treatment Not on file documented as of this encounter Procedures Procedure Name Priority Date/Time Associated Diagnosis Comments MAMMO SCREENING BILAT Routine 05/17/2008 3:20 PM CDT documented in this encounter Results * MAMMO SCREENING BILAT (05/17/2008 3:20 PM CDT) Anatomical Region Laterality Modality Breast Bilateral Other Narrative 05/17/2008 3:20 PM CDT Report Available in [facility] Procedure Note 08/19/2008 Report Available in [facility] us Fortino Akers MD MAMMO ORDERABLES Final Re sult documented in this encounter Visit Diagnoses Not on filedocumented in this encounter Care Teams Form Grader Relationship Specialty Start Date End Date Patricio Castorena MD [address] [place] [address] PCP - General Internal Medicine 04/07/17 documented as of this encounter
--- OUTSIDE RECORDS SUMMARY | 2025-01-08 12:10 | XMS_ITS | Encounter Summary ---
Author Organization [facility] Address [address] [place] [address] Care Team Providers Care Neurological Physiotherapist Name Role Phone Patricio Castorena MD Primary Care Provider [phone] Encounter Details Date Type Department Care Team (Late st Contact Info) Description 08/11/2007 Outpatient Historical [facility] [address] [place] [phone] Fortino Akers MD [address] [place] [phone] Social History Tobacco Use Types Packs/Day Years Used Date Smoking Tobacco: Never Assessed Comments Unknown Sex and Gender Information Value Date Recorded Sex Assigned at Not on file Legal Sex Female 2:56 AM RENTAL CLERK Gender Identity Not on file Sexual Orientation Not on file documented as of this encounter Progress Notes * Marvin Akers MD - 08/11/2007 12:00 AM [facility] [address] [place] [address] PATIENT NAME: Kerri Silvestre CHART #: [id number] DATE OF SERVICE: 08/11/2007 DATE OF : 1965 Patient Name: Kerri Silvestre DOS: 08/11/2007 : 1965 VITALS: Weight: 228.0 pounds. Pulse: 72. BP: 136/78. Height 5 feet 4 . BMI 39 PROBLEM LIST: Obesity hypertension esophageal reflux nonalcoholic fatty liver disease chronic cough headaches mild asthma CURRENT MEDICATIONS: Enalapril 10 mg daily ranitidine 150 mg b.i.d. butalbital/APAP/caffeine tablets as needed for headache albuterol metered-dose inhaler p.r.n. CHIEF COMPLAINT: Kerri Silvestre is a 41 year old woman here today for her first visit in this clinic. She is here for follow-up in long-term management of health problems as listed above. 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. She has been in good general health most of her adult life. Over the past 10 years she has continued to gain weight. She has tried multiple diets in the past without success. During the she was evaluated in [place] [facility] for a lesion on her liver. She underwent multiple imaging tests and possibly had biopsy. She does not know of any final diagnosis but no additional treatments were suggested. She was seen by Dr. Webb in the GI clinic lastweek. Imaging studies suggested fatty liver disease. Blood chemistry tests did not show any evidence of other cause for her mildly elevated ALT transaminase levels. For the past five years she has had significant hypertension. She has taken an EL inhibitor for this with reasonable control her blood pressure. She has also had a cough during this time. Chemistry tests in the past five years and it showed some elevated glucose levels. She has never met criteria for a diagnosis of diabetes. ALLERGIES: No known drug allergies HABITS: tobacco: none alcohol: rare alcohol. CAGE screen negative. caffeine: daily coffee Safety: wears the seat belt, Fitness: No regular aerobic activity PAST MEDICAL AND SURGICAL HISTORY: Status post hysterectomy for uterine cancer status post abdominal wall hernia repair history of hypertension PSYCHOSOCIAL HISTORY: Education: She will complete her masters degree in education in February 2008 from [employer] Occupations: She is a executive relations specialist at the [employer] Family structure: She lives with her and 15 year-old son. Her mother has recently moved in with them. Her son has a history of congenital heart disease and has undergone multiple heart surgical procedures. He currently has mild heart failure. FAMILY HISTORY: Diabetes mellitus type 2: In her mother and grandparents Premature coronary heart disease: None Colon cancer: None Hip fracture in parent. None Breast cancer None Ovarian cancer None HEALTH MAINTENANCE AND SCREENING: Colon cancer screening: She had colonoscopy in 1997 to evaluate lower GI symptoms. Breast cancer screening: Mammography normal 2006 Cervical cancer screening: Pap smear normal 2006 Osteoporosis screening: Not indicated at this time Cholesterol screening: LDL cholesterol less than 130 in the past five years. Diabetes screening: Prediabetes in the past. Vaccinations Td/Tdap: 2004 Pneumonia vaccine: Not indicated at this time Influenza Vaccine: April 2007 REVIEW OF SYSTEMS: CONSTITUTIONAL: No significant or unusual weight gain or loss, frequent fevers or night sweats. EYES: No significant changes in vision. HENT: No significant headaches, hearing problems, or sinus problems. CARDIOVASCULAR: No significant change in exercise capacity, new chest pain, orthopnea, PND, nocturia, or severe swelling. RESPIRATORY: No significant cough, dyspnea, hemoptysis, or pleuricy. GASTROINTESTINAL: No significant heartburn, indigestion, hematochezia, hematemesis, or change in bowel habits. GENITORURINARY: No significant difficulty urinating, incontinence, frequent nocturia, or hematuria. MUSCULOSKELETAL: No significant joint pains or new deformity. SKIN: No significant rash, skin lesions, or change in moles or other pigmented lesions. NEURO: No significant spells, focal weakness, paresthesia, or falls. PSYCHIATRIC: No significant problems with feeling down, depressed or hopeless for the past 2 weeks.No significant loss of interest or pleasure in doing things during the past 2 weeks. PHYSICAL EXAMINATION: VS: as noted above No distress. Appropriate. Cooperative. Skin: No significant rash or lesions. Lymphatic: No significant lymphadenopathy. Eyes: Conjunctiva and lids are normal. PERRL, EOM intact, Fundus is benign. ENT: External ears and nose are normal. Canals are clear. TMs normal, dentition is within normal limits. The thyroid is without masses or enlargement. Lungs: clear to auscultation and percussion. There are no adventitial lung sounds. Heart: Regular regular rate and rhythm. No murmurs, S3, or S4. There are no carotid bruits. JVD 8 cm. No hepato-jugular reflux. Abdomen: Obese, nontender, no hepatomegaly, no splenomegaly. Extremities: No cyanosis, clubbing, or edema. Neurological: CN II-XII grossly intact. Motor and sensory exam is grossly normal. DTRs are 2+ and symmetrical at the biceps and knees. Musculoskeletal: Moves all extremities without difficulty and with normal range of motion. There are no gross deformities. The gait is normal. Psychiatric: Demonstrated good judgement and insight. Mood and affect are normal. LAB AND TESTS: none today IMPRESSION: 1. Obesity. We discussed her calorie intake and ways to reduce her calorie intake and increase her calorie expenditure. She will work on this approach and we will review the results at the next visit. 2. hypertension. Given her cough we will discontinue the EL inhibitor today and use thiazide diuretic. Given her blood pressure levels she may need to drugs but we will start with this. She has never taken diuretic in the past. 3. esophageal reflux. We discussed the relationship between her obesity and esophageal reflux. She will continue her current therapy and focus on weight loss to reduce the symptoms. 4. nonalcoholic fatty liver disease. We reviewed the results of her recent tests. Reviewed the importance of weight loss 5. chronic cough. Possibly related to the EL inhibitor. Will discontinue that as her supply runs out. Will review her cough next visit 6. headaches. Mixed type. We will try sumatriptan orally. 7. History of mild asthma. She carries an inhaler with her but has not used it in quite some time. Will give her an albuterol MDI from our sample supply today. PLANS: ?? Follow up in clinic in two months with BMP and fasting lipid profile. ?? Discussed obesity, diet, exercise, fitness, and the relationship of these lifestyle factors to longevity. She will focus on this and calorie restriction. As the main treatment for her health issues at this point. ?? Final medication list: Hydrochlorothiazide 25 mg daily potassium chloride 20 mEq daily sumatriptan 25 mg p.r.n. headache ranitidine 150 mg b.i.d. albuterol metered-dose inhaler p.r.n. Marvin Akers M.D. Internal Medicine [facility] Electronically Signed by Marvin Akers M.D. 08/14/2007 15:20 , P, estrellita Job #: Document #: [id number] cc: Antoine Webb M.D. Gastroenterology [address] [place] [id number] [place] CLERK documented in this encounter Plan of Treatment Not on file documented as of this encounter Visit Diagnoses Not on filedocumented in this encounter Care Teams Neurological Physiotherapist Relationship Specialty Start Date End Date Patricio Castorena MD [address] [place] [address] PCP - General Internal Medicine 04/07/17 documented as of this encounter
--- OUTSIDE RECORDS SUMMARY | 2025-01-08 12:10 | XMS_ITS | Encounter Summary ---
Author Organization [facility] Address [address] [place] [address] Care Team Providers Care Stranner Name Role Phone Patricio Castorena MD Primary Care Provider [phone] Encounter Details Date Type Department Care Team (Late st Contact Info) Description 02/22/2007 Outpatient Historical [facility] Sushil Kearns MD [address] [place] [phone] Social History Tobacco Use Types Packs/Day Years Used Date Smoking Tobacco: Never Assessed Comments Unknown Sex and Gender Information Value Date Recorded Sex Assigned at Not on file Legal Sex Female 2:56 AM ASSEMBLER SKYLIGHTS Gender Identity Not on file Sexual Orientation Not on file documented as of this encounter Plan of Treatment Not on file documented as of this encounter Visit Diagnoses Not on filedocumented in this encounter Care Teams Stranner Relationship Specialty Start Date End Date Patricio Castorena MD [address] [place] [address] PCP - General Internal Medicine 04/07/17 documented as of this encounter
--- OUTSIDE RECORDS SUMMARY | 2025-01-08 12:10 | XMS_ITS | Encounter Summary ---
Author Organization [facility] Address [address] [facility] [address] [facility] Attn: [place] [address] Care Team Providers Care Help Desk Representative Name Role Phone Patricio Castorena MD Primary Care Provider [phone] Encounter Details Date Type Department Care Team (Late st Contact Info) Description 03/20/2008 Outpatient Historical Sushil Kearns MD [address] [place] [address] Special Screening for Malignant Neoplasms, Vagina Social History Tobacco Use Types Packs/Day Years Used Date Smoking Tobacco: Never Assessed Comments Unknown Sex and Gender Information Value Date Recorded Sex Assigned at Not on file Legal Sex Female 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 Gender Identity Not on file Sexual Orientation Not on file documented as of this encounter Plan of Treatment Not on file documented as of this encounter Procedures Procedure Name Priority Date/Time Associated Diagnosis Comments PATHOLOGY Routine 03/20/2008 6:48 AM CDT documented in this encounter Results * PATHOLOGY (03/20/2008 6:48 AM CDT) PATHOLOGY/VIOLET BUTT REPORT [facility] Anatomic Pathology Dept [facility] [address] Patient: DEBORAH SILVESTRE Accn No: [id number] Collected: 03/20/2008 6:48:00 AM CYTOLOGY TIRE LAYER FINAL REPORT - - FUNERAL DIRECTOR'S ASSISTANT PAP History Specimen Source: vaginal Hysterectomy Last Pap Date: 2007 WNL ENDO ADENO CA Specimen Adequacy Satisfactory for interpretation. The smear lacks endocervical or metaplastic cells, consistent with the patient's clinical history. Diagnosis NEGATIVE FOR INTRAEPITHELIAL LESION OR MALIGNANCY. (Previously noted as Within Normal Limits) Guitar Repairer 03/21/08 Completed by: VIKAS PELLETIER (Electronically signed by) 03/21/08 Comment Routine follow-up is suggested. Important Info About Pap Smears HPV Testing off the Thin Prep vial can be done as a means of further evaluating a Thin Prep Report. For information about ordering the HPV test, phone Cytology at . Treatment or follow-up recommendations (if any) that are considered within this report are based upon general recommendations as contained in 2001 Consensus Guidelines For Cervical Cytological Abnormalities IOANA: November 08, 2001, and are provided as a general guideline rather than as a specific recommendation. Final decisions about the most appropriate treatment and follow-up should be made on an individualized basis by the treating physician in consultation with his/her patient. INTERFACE SYSTEM 03/20/2008 6:48 AM CDT us Sushil Kearns MD PATHOLOGY/CYTOLOGY ORDERABLE S Final Result INTERFACE SYSTEM Refer to clinic/hospital department documented in this encounter Visit Diagnoses Diagnosis Special screening for malignant neoplasms, vagina documented in this encounter Care Teams Help Desk Representative Relationship Specialty Start Date End Date Patricio Castorena MD [address] [place] [address] PCP - General Internal Medicine 04/07/17 documented as of this encounter
--- OUTSIDE RECORDS SUMMARY | 2025-01-08 12:10 | XMS_ITS | Encounter Summary ---
Author Organization [facility] Address [address] [place] [address] Care Team Providers Care Insurance Broker Name Role Phone Patricio Castorena MD Primary Care Provider [phone] Encounter Details Date Type Department Care Team (Latest Contact Info) Description 08/25/2007 Outpatient Historical [facility] Sushil Kearns MD [address] [place] [address] Special Screening for Malignant Neoplasms, Vagina Social History Tobacco Use Types Packs/Day Years Used Date Smoking Tobacco: Never Assessed Comments Unknown Sex and Gender Information Value Date Recorded Sex Assigned at Not on file Legal 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 Female 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 Gender Identity Not on file Sexual Orientation Not on file documented as of this encounter Plan of Treatment Not on file documented as of this encounter Procedures Procedure Name Priority Date/Time Associated Diagnosis Comments PATHOLOGY Routine 08/24/2007 5:52 AM MERCHANDISE FLOW TEAM LEADER documented in this encounter Results * PATHOLOGY (08/24/2007 5:52 AM MERCHANDISE FLOW TEAM LEADER) PATHOLOGY/VIOLET BUTT REPORT [facility] Anatomic Pathology Dept [address] [facility] [facility] [address] Patient: DEBORAH SILVESTRE Accn No: [id number] Collected: 08/24/2007 5:52:00 AM CYTOLOGY COMPUTER OPERATIONS ANALYST FINAL REPORT - - YARDING ENGINEER PAP History Specimen Source: vaginal LMP: Hysterectomy Last Pap Date: 2006 WNL ADENO CA ENDOMETRIUM V76.47 Specimen Adequacy Satisfactory for interpretation. The smear lacks endocervical or metaplastic cells, consistent with the patient's clinical history. Diagnosis NEGATIVE FOR INTRAEPITHELIAL LESION OR MALIGNANCY. (Previously noted as Within Normal Limits) System Engineer JAY JAY 08/28/07 Completed by: VIKAS PELLETIER (Electronically signed by) 08/28/07 Comment Routine follow-up is suggested. Important Info [...] in consultation with his/her patient. INTERFACE SYSTEM 08/24/2007 5:52 AM MERCHANDISE FLOW TEAM LEADER us Sushil Kearns MD PATHOLOGY/CYTOLOGY ORDERABLE S Final Result INTERFACE SYSTEM Refer to clinic/hospital department documented in this encounter Visit Diagnoses Diagnosis Special screening for malignant neoplasms, vagina documented in this encounter Care Teams Insurance Broker Relationship Specialty Start Date End Date Patricio Castorena MD [address] [place] [address] PCP - General Internal Medicine 04/07/17 documented as of this encounter
--- OUTSIDE RECORDS SUMMARY | 2025-01-08 12:11 | XMS_ITS | Encounter Summary ---
Author Organization [facility] Address [address] [place] [address] Care Team Providers Care Route Rider Name Role Phone Patricio Castorena MD Primary Care Provider [phone] Encounter Details Date Type Department Care Team (Latest Contact Info) Description 11/04/2006 Outpatient Historical 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 Gender Identity Not on file Sexual Orientation Not on file documented as of this encounter Plan of Treatment Not on file documented as of this encounter Procedures Procedure Name Priority Date/Time Associated Diagnosis Comments CBC WITH DIFFERENTIAL Routine 11/04/2006 4:59 PM CDT COMPREHENSIVE METABOLIC PANEL Routine 11/04/2006 4:59 PM CDT documented in this encounter Results * (ABNORMAL) COMPREHENSIVE METABOLIC PANEL (11/04/2006 4:59 PM CDT) GLUCOSE 110 70 - 110 mg/dL INTERFACE SYSTEM BUN 12 7 - 17 mg/dL INTERFACE SYSTEM CREATININE 0.7 0.7 - 1.2 mg/dL INTERFACE SYSTEM SODIUM 139 136 - 145 mEq/L INTERFACE SYSTEM POTASSIUM 3.7 3.5 - 5.0 mEq/L INTERFACE SYSTEM CHLORIDE 105 95 - 110 mEq/L INTERFACE SYSTEM CO2 26 22 - 32 mmol/l INTERFACE SYSTEM CALCIUM 9.6 8.4 - 10.5 mg/dL INTERFACE SYSTEM TOTAL PROTEIN 7.8 6.3 - 8.2 g/dL INTERFACE SYSTEM ALBUMIN 4.5 3.5 - 5.0 g/dL INTERFACE SYSTEM ALKALINE PHOSPHATASE 101(H) 25 - 100 U/L INTERFACE SYSTEM AST 34(H) 8 - 33 U/L INTERFACE SYSTEM ALT 67(H) 4 - 36 IU/L INTERFACE SYSTEM BILIRUBIN TOTAL 0.3 0.3 - 1.2 mg/dL INTERFACE SYSTEM GLOBULIN (CALC) 3.3 2.4 - 3.9 g/dL INTERFACE SYSTEM ALBUMIN/GLOBULIN RATIO 1.4 1.0 - 2.3 INTERFACE SYSTEM ANION GAP 12 9 - 20 mEq/L INTERFACE SYSTEM OSMOLALITY, CALCULATED 286 275 - 295 mOsm/Kg INTERFACE SYSTEM 11/04/2006 4:59 PM CDT us Bright Webber MD CHEMISTRY ORDERABLES Edite d INTERFACE SYSTEM Refer to clinic/hospital department * (ABNORMAL) CBC WITH DIFFERENTIAL (11/04/2006 4:59 PM CDT) WBC 8.5 4.5 - 11.0 K/ul INTERFACE SYSTEM RBC 4.83 4.20 - 5.40 Mil/ul INTERFACE SYSTEM HEMOGLOBIN 14.2 12.0 - 16.0 g/dL INTERFACE SYSTEM HEMATOCRIT 41.8 36.0 - 46.0 % INTERFACE SYSTEM MCV 86.5 84.0 - 103.0 Fl INTERFACE SYSTEM MCH 29.4 27.0 - 34.0 pg INTERFACE SYSTEM MCHC 34.0 30.0 - 35.0 g/dL INTERFACE SYSTEM RDW 12.5 11.0 - 14.5 % INTERFACE SYSTEM PLATELETS 342 140 - 440 K/ul INTERFACE SYSTEM MPV 9.5 8.9 - 12.8 Fl INTERFACE SYSTEM NEUTROPHILS 63.5 42.2 - 75.2 % INTERFACE SYSTEM LYMPHOCYTES 25.8 24.0 - 44.0 % INTERFACE SYSTEM MONOCYTES 8.2 2.0 - 10.0 % INTERFACE SYSTEM EOSINOPHILS 2.1 0.0 - 7.0 % INTERFACE SYSTEM BASOPHILS 0.4 0.0 - 1.0 % INTERFACE SYSTEM NEUTROPHIL ABSOLUTE 5.4 2.0 - 8.0 K/ul INTERFACE SYSTEM LYMPHOCYTE ABSOLUTE 2.2 1.2 - 4.0 K/ul INTERFACE SYSTEM MONOCYTE ABSOLUTE 0.7(H) 0.1 - 0.6 K/ul INTERFACE SYSTEM EOSINOPHIL ABSOLUTE 0.2 0.0 - 0.7 K/ul INTERFACE SYSTEM BASOPHILS ABSOLUTE 0.0 0.0 - 0.2 K/ul INTERFACE SYSTEM 11/04/2006 4:59 PM CDT us Bright Webber MD HEMATOLOGY ORDERABLES Edit ed INTERFACE SYSTEM Refer to clinic/hospital department documented in this encounter Visit Diagnoses Diagnosis Pre-operative cardiovascular examination- Primary documented in this encounter Care Teams Route Rider Relationship Specialty Start Date End Date Patricio Castorena MD [place] [address] PCP - General Internal Medicine 04/07/17 documented as of this encounter
--- OUTSIDE RECORDS SUMMARY | 2025-01-08 12:11 | XMS_ITS | Encounter Summary ---
Author Organization [facility] Address [address] [place] [address] Care Team Providers Care Welfare Supervisor Name Role Phone Patricio Castorena MD Primary Care Provider [phone] Encounter Details Date Type Department Care Team (Latest Contact Info) Description 10/08/2005 Outpatient Historical [facility] [address] 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 FINDINGS: Lungs unremarkable. Cardiovascular silhouette within normal limits. IMPRESSION: No apparent acute disease. sdm Dictated By: Estefany Real M.D. Electronically Signed By: Estefany Real M.D. Date Signed: 10/10/05 SDM Procedure Note 06/06/2009 PA CHEST: DATE OF EXAMINATION: 10/08/2005. FINDINGS: Lungs unremarkable. Cardiovascular silhouette within normal limits. IMPRESSION: No apparent acute disease. sdm Dictated By: Estefany Real M.D. Electronically Signed By: Estefany Real M.D. Date Signed: 10/10/05 SDM us Historical Provider DIAGNOSTIC IMAGING ORDERABLE S Final Result documented in this encounter Visit Diagnoses Diagnosis Cough- Primary documented in this encounter Care Teams Welfare Supervisor Relationship Specialty Start Date End Date Patricio Castorena MD [facility] [place] [address] PCP - General Internal Medicine 04/07/17 documented as of this encounter
--- OUTSIDE RECORDS SUMMARY | 2025-01-08 12:11 | XMS_ITS | Encounter Summary ---
Author Organization [facility] Address [address] [place] [address] Care Team Providers Care Clinical Data Abstractor Name Role Phone Patricio Castorena MD Primary Care Provider Encounter Details Date Type Department Care Team (Latest Contact Info) Description 03/03/[address] 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
--- OUTSIDE RECORDS SUMMARY | 2025-01-08 12:11 | XMS_ITS | Encounter Summary ---
Author Organization [facility] Address [address] [place] [address] Care Team Providers Care Student Success Coach Name Role Phone Patricio Castorena MD Primary Care Provider [phone] Encounter Details Date Type Department Care Team (Latest Contact Info) Description 09/01/1998 Outpatient [facility] Family [facility] [place] [id number] [address] [phone] Kev Pabon MD NO ADDRESS ON FILE Acute pharyngitis (Primary Dx) Social History Tobacco Use Types Packs/Day Years Used Date Smoking Tobacco: Never Assessed Comments Unknown Sex and Gender Information Value Date Recorded Sex Assigned at Not on file Legal Sex Female 2:56 AM OPERATIONS SUPERINTENDENT Gender Identity Not on file Sexual Orientation Not on file documented as of this encounter Plan of Treatment Not on file documented as of this encounter Visit Diagnoses Diagnosis Acute pharyngitis- Primary documented in this encounter Care Teams Student Success Coach Relationship Specialty Start Date End Date Patricio Castorena MD [address] [place], [place] [address] PCP - General Internal Medicine 04/07/17 documented as of this encounter
--- OUTSIDE RECORDS SUMMARY | 2025-01-08 12:11 | XMS_ITS | Encounter Summary ---
Author Organization [employer] [facility] Address [address] [place] [address] Care Team Providers Care Furrier Shop Supervisor Name Role Phone Patricio Castorena MD Primary Care Provider [phone] Encounter Details Date Type Department Care Team (Latest Contact Info) Description 04/06/2006 Outpatient Historical [facility] [employer] [facility] [employer] 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
--- OUTSIDE RECORDS SUMMARY | 2025-01-08 12:11 | XMS_ITS | Encounter Summary ---
Author Organization [facility] Address [address] [place] [address] Care Team Providers Care Special Education Assistant Name Role Phone Patricio Castorena MD Primary Care Provider [phone] Encounter Details Date Type Department Care Team (Latest Contact Info) Description 10/24/2006 Outpatient Historical [facility] [address] [place] [address] Sushil Kearns MD [address] [place] [address] Malignant Neoplasm of Corpus Uteri, except Isthmus (CMS/HCC) (Primary Dx) Social History Tobacco Use Types Packs/Day Years Used Date Smoking Tobacco: Never Assessed Comments Unknown Sex and Gender Information Value Date Recorded Sex Assigned at Not on file Legal Sex Female 2:56 AM RN PRIOR AUTHORIZATION Gender Identity Not on file Sexual Orientation Not on file documented as of this encounter Plan of Treatment Not on file documented as of this encounter Procedures Procedure Name Priority Date/Time Associated Diagnosis Comments CT ABDOMEN PELVIS W CONTRAST Routine 10/24/2006 12:01 AM CDT documented in this encounter Results * CT ABDOMEN PELVIS W CONTRAST (10/24/2006 12:01 AM CDT) Anatomical Region Laterality Modality Abdomen Other 10/24/2006 12:0 1 AM CDT Narrative 10/24/2006 12:[address] ABDOMEN AND PELVIS: TECHNIQUE: CT of the abdomen and pelvis was performed following the administration of oral andintravenous contrast 75 mL Optiray 350. HISTORY: Endometrial cancer. Possible ventral hernia. FINDINGS: Comparison made with prior exam dated 12/06/05. Interval increase in fatty infiltration ofthe liver. Hyperdense lesion of the posterior segment of the right hepatic lobe measuring 2.8 cmnot clearly evident on the prior exam. Hyperdense 16 x 12 mm right hepatic lobe lesion on image 34. Ill-defined area of increased attenuation anterior to the fissure of the ligamentum venosum onimage 24 most likely represents fatty sparing. Gallbladder, spleen, pancreas, adrenals and kidneysare within normal limits. There has been interval appearance of a right paramedian ventral herniainto which nonobstructed small bowel loops extend. Post hysterectomy status. No evidence ofadnexal pathology. Unremarkable urinary bladder. Unremarkable lung bases. Mild degenerative changesof the spine. IMPRESSION: Interval appearance of right paramedian ventral hernia containing nonobstructed smallbowel. Interval increase in fatty infiltration of the liver with interval visualization of focalhepatic abnormalities which are indeterminate for areas of fatty sparing versus focal pathology. MRI recommended for further assessment if clinically warranted given history of malignancy. - Dictated By: Jonas Zambrano M.D. Electronically Signed By: Jonas Zambrano M.D. Date Signed: 10/24/06 [facility] Procedure Note 06/07/2009 CT ABDOMEN AND PELVIS: TECHNIQUE: CT of the abdomen and pelvis was performed following the administration oforal andintravenous contrast 75 mL Optiray 350. HISTORY: Endometrial cancer. Possible ventral hernia. FINDINGS: Comparison made with prior exam dated 12/06/05. Interval increase in fattyinfiltration ofthe liver. Hyperdense lesion of the posterior segment of the right hepatic lobemeasuring 2.8 cmnot clearly evident on the prior exam. Hyperdense 16 x 12 mm right hepatic lobe lesion onimage 34. Ill-defined area of increased attenuation anterior to the fissure of theligamentum venosum onimage 24 most likely represents fatty sparing. Gallbladder, spleen, pancreas,adrenals and kidneysare within normal limits. There has been interval appearance of a right paramedianventral herniainto which nonobstructed small bowel loops extend. Post hysterectomy status. Noevidence ofadnexal pathology. Unremarkable urinary bladder. Unremarkable lung bases. Mild degenerativechangesof the spine. IMPRESSION: Interval appearance of right paramedian ventral hernia containingnonobstructed smallbowel. Interval increase in fatty infiltration of the liver with interval visualization offocalhepatic abnormalities which are indeterminate for areas of fatty sparing versus focal pathology. MRI recommended for further assessment if clinically warranted givenhistory of malignancy. - Dictated By: Jonas Zambrano M.D. Electronically Signed By: Jonas Zambrano M.D. Date Signed: 10/24/06 [facility] us Sushil Kearns MD CT ORDERABLES Final Result documented in this encounter Visit Diagnoses Diagnosis Malignant neoplasm of corpus uteri, except isthmus (CMS/HCC)- Primary Malignant neoplasm of corpus uteri, except isthmus documented in this encounter Care Teams Special Education Assistant Relationship Specialty Start Date End Date Patricio Castorena MD [address] [place] [address] PCP - General Internal Medicine 04/07/17 documented as of this encounter
--- OUTSIDE RECORDS SUMMARY | 2025-01-08 12:11 | XMS_ITS | Encounter Summary ---
Author Organization [facility] Address [address] [place] [address] Care Team Providers Care Air Traffic Control Equipment Repairer Name Role Phone Patricio Castorena MD Primary Care Provider [phone] Encounter Details Date Type Department Care Team (Latest Contact Info) Description 04/06/2006 Outpatient Historical [facility] [address] [place] [address] [address] [place] [address] Sushil Kearns MD [address] [place] [address] Malig Duane Corpus Uteri (Primary Dx); Other Specified Noninflammatory Disorder of Vagina Social History Tobacco Use Types Packs/Day Years Used Date Smoking Tobacco: Never Assessed Comments Unknown Sex and Gender Information Value Date Recorded Sex Assigned at Not on file Legal Sex Female 2:56 AM 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
--- OUTSIDE RECORDS SUMMARY | 2025-01-08 12:11 | XMS_ITS | Encounter Summary ---
Author Organization [facility] Address [address] [place] [address] Care Team Providers Care Configuration Manager Name Role Phone Patricio Castorena MD Primary Care Provider [phone] Encounter Details Date Type Department Care Team (Latest Contact Info) Description 01/06/[address] [facility] [address] [place] [address] [address] [place] [address] Sushil Kearns MD [address] [place] [address] Malig Duane Corpus Uteri (Primary Dx) Social History Tobacco Use Types Packs/Day Years Used Date Smoking Tobacco: Never Assessed Comments Unknown Sex and Gender Information Value Date Recorded Sex Assigned at Not on file Legal Sex Female 2:56 AM MANAGER DENTAL Gender Identity Not on file Sexual Orientation Not on file documented as of this encounter Plan of Treatment Not on file documented as of this encounter Visit Diagnoses Diagnosis Malig duane corpus uteri- Primary Malignant neoplasm of corpus uteri, except isthmus documented in this encounter Care Teams Configuration Manager Relationship Specialty Start Date End Date Patricio Castorena MD [address] [place] [address] PCP - General Internal Medicine 04/07/17 documented as of this encounter
--- OUTSIDE RECORDS SUMMARY | 2025-01-08 12:11 | XMS_ITS | Encounter Summary ---
Author Organization [facility] Address [address] [place] [address] Care Team Providers Care Tip Puncher Name Role Phone Patricio Castorena MD Primary Care Provider [phone] Encounter Details Date Type Department Care Team (Latest Contact Info) Description 07/06/2006 Outpatient Historical [facility] [address] [place] [address] [address] [place] [address] Sushil Kearns MD [address] [place] [address] Malig Duane Corpus Uteri (Primary Dx) Social History Tobacco Use Types Packs/Day Years Used Date Smoking Tobacco: Never Assessed Comments Unknown Sex and Gender Information Value Date Recorded Sex Assigned at Not on file Legal Sex Female 2:56 AM FITTING ROOM MAINTENANCE 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
--- OUTSIDE RECORDS SUMMARY | 2025-01-08 12:11 | XMS_ITS | Encounter Summary ---
Author Organization [facility] Address [address] [place] [address] Care Team Providers Care Screw Machine Setter Name Role Phone Patricio Castorena MD Primary Care Provider [phone] Encounter Details Date Type Department Care Team (Late st Contact Info) Description 11/29/2005 Inpatient Historical [facility] Sushil Kearns MD [address] [place] [address] Malignant Neoplasm of Corpus Uteri, except Isthmus (CMS/HCC) (Primary Dx) Social History Tobacco Use Types Packs/Day Years Used Date Smoking Tobacco: Never Assessed Comments Unknown Sex and Gender Information Value Date Recorded Sex Assigned at Not on file Legal Sex Female 2:56 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 Gender Identity Not on file Sexual Orientation Not on file documented as of this encounter Plan of Treatment Not on file documented as of this encounter Procedures Procedure Name Priority Date/Time Associated Diagnosis Comments CBC WITH DIFFERENTIAL Routine 12/02/2005 5:35 AM CDT CBC WITH DIFFERENTIAL Routine 12/01/2005 5:45 AM CDT BASIC METABOLIC PANEL Routine 12/01/2005 5:45 AM CDT CBC WITH DIFFERENTIAL Routine 11/30/2005 6:07 AM CDT BASIC METABOLIC PANEL Routine 11/30/2005 6:06 AM CDT CBC WITH DIFFERENTIAL Routine 11/29/2005 7:10 AM CDT COMPREHENSIVE METABOLIC PANEL Routine 11/29/2005 7:10 AM CDT documented in this encounter Results * (ABNORMAL) CBC WITH DIFFERENTIAL (12/02/2005 5:35 AM CDT) WBC 13.8(H) 4.5 - 11.0 K/ul INTERFACE SYSTEM RBC 3.77(L) 4.20 - 5.40 Mil/ul INTERFACE SYSTEM HEMOGLOBIN 11.2(L) 12.0 - 16.0 g/dL INTERFACE SYSTEM HEMATOCRIT 33.3(L) 36.0 - 46.0 % INTERFACE SYSTEM MCV 88.3 84.0 - 103.0 Fl INTERFACE SYSTEM MCH 29.7 27.0 - 34.0 pg INTERFACE SYSTEM MCHC 33.6 30.0 - 35.0 g/dL INTERFACE SYSTEM RDW 12.7 11.0 - 14.5 % INTERFACE SYSTEM PLATELETS 311 140 - 440 K/ul INTERFACE SYSTEM MPV 9.0 8.9 - 12.8 Fl INTERFACE SYSTEM NEUTROPHILS 73.4 42.2 - 75.2 % INTERFACE SYSTEM LYMPHOCYTES 16.0(L) 24.0 - 44.0 % INTERFACE SYSTEM MONOCYTES 7.7 2.0 - 10.0 % INTERFA CE SYSTEM EOSINOPHILS 2.8 0.0 - 7.0 % INTERF EL SYSTEM BASOPHILS 0.1 0.0 - 1.0 % INTERFAC E SYSTEM NEUTROPHIL ABSOLUTE 10.1(H) 2.0 - 8.0 K/uL INTERFACE SYSTEM LYMPHOCYTE ABSOLUTE 2.2 1.2 - 4.0 K/ul INTERFACE SYSTEM MONOCYTE ABSOLUTE 1.1(H) 0.1 - 0.6 K/ul INTERFACE SYSTEM EOSINOPHIL ABSOLUTE 0.4 0.0 - 0.7 K/ul INTERFACE SYSTEM BASOPHILS ABSOLUTE 0.0 0.0 - 0.2 K/ul INTERFACE SYSTEM PERIPHERAL BLOOD SMEAR REVIEW Automated Diff Automated Diff INTERFACE SYSTEM 12/02/2005 5:35 AM CDT us Sushil Kearns MD HEMATOLOGY ORDERABLES Final Result INTERFACE SYSTEM Refer to clinic/hospital department * (ABNORMAL) BASIC METABOLIC PANEL (12/01/2005 5:45 AM CDT) GLUCOSE 122(H) 70 - 110 mg/dL INTERFACE SYSTEM BUN 5(L) 7 - 17 mg/dL INTERFACE SYSTEM CREATININE 0.6(L) 0.7 - 1.2 mg/dL INTERFACE SYSTEM SODIUM 138 136 - 145 mEq/L INTERFACE SYSTEM POTASSIUM 3.4(L) 3.5 - 5.0 mEq/L INTERFACE SYSTEM CHLORIDE 107 95 - 110 mEq/L INTERFACE SYSTEM CO2 24 22 - 32 mmol/l INTERFACE SYSTEM ANION GAP 10 9 - 20 mEq/L INTERFACE SYSTEM OSMOLALITY, CALCULATED 282 275 - 295 mOsm/Kg INTERFACE SYSTEM CALCIUM 8.5 8.4 - 10.5 mg/dL INTERFACE SYSTEM 12/01/2005 5:45 AM CDT us Sushil Kearns MD CHEMISTRY ORDERABLES Final R esult INTERFACE SYSTEM Refer to clinic/hospital department * (ABNORMAL) CBC WITH DIFFERENTIAL (12/01/2005 5:45 AM CDT) WBC 17.3(H) 4.5 - 11.0 K/ul INTERFACE SYSTEM RBC 3.95(L) 4.20 - 5.40 Mil/ul INTERFACE SYSTEM HEMOGLOBIN 11.8(L) 12.0 - 16.0 g/dL INTERFACE SYSTEM HEMATOCRIT 35.2(L) 36.0 - 46.0 % INTERFACE SYSTEM MCV 89.1 84.0 - 103.0 Fl INTERFACE SYSTEM MCH 29.9 27.0 - 34.0 pg INTERFACE SYSTEM MCHC 33.5 30.0 - 35.0 g/dL INTERFACE SYSTEM RDW 12.9 11.0 - 14.5 % INTERFACE SYSTEM PLATELETS 344 140 - 440 K/ul INTERFACE SYSTEM MPV 9.1 8.9 - 12.8 Fl INTERFACE SYSTEM NEUTROPHILS 87.4(H) 42.2 - 75.2 % INTERFACE SYSTEM LYMPHOCYTES 5.6(L) 24.0 - 44.0 % INTERFACE SYSTEM MONOCYTES 6.1 2.0 - 10.0 % INTERFA CE SYSTEM EOSINOPHILS 0.8 0.0 - 7.0 % INTERF EL SYSTEM BASOPHILS 0.1 0.0 - 1.0 % INTERFAC E SYSTEM NEUTROPHIL ABSOLUTE 15.1(H) 2.0 - 8.0 K/uL INTERFACE SYSTEM LYMPHOCYTE ABSOLUTE 1.0(L) 1.2 - 4.0 K/ul INTERFACE SYSTEM MONOCYTE ABSOLUTE 1.1(H) 0.1 - 0.6 K/ul INTERFACE SYSTEM EOSINOPHIL ABSOLUTE 0.1 0.0 - 0.7 K/ul INTERFACE SYSTEM BASOPHILS ABSOLUTE 0.0 0.0 - 0.2 K/ul INTERFACE SYSTEM PERIPHERAL BLOOD SMEAR REVIEW Automated Diff Automated Diff INTERFACE SYSTEM 12/01/2005 5:45 AM CDT us Sushil Kearns MD HEMATOLOGY ORDERABLES Final Result INTERFACE SYSTEM Refer to clinic/hospital department * (ABNORMAL) CBC WITH DIFFERENTIAL (11/30/2005 6:07 AM CDT) WBC 12.7(H) 4.5 - 11.0 K/ul INTERFACE SYSTEM RBC 4.01(L) 4.20 - 5.40 Mil/ul INTERFACE SYSTEM HEMOGLOBIN 11.9(L) 12.0 - 16.0 g/dL INTERFACE SYSTEM HEMATOCRIT 35.5(L) 36.0 - 46.0 % INTERFACE SYSTEM MCV 88.5 84.0 - 103.0 Fl INTERFACE SYSTEM MCH 29.7 27.0 - 34.0 pg INTERFACE SYSTEM MCHC 33.5 30.0 - 35.0 g/dL INTERFACE SYSTEM RDW 12.8 11.0 - 14.5 % INTERFACE SYSTEM PLATELETS 346 140 - 440 K/ul INTERFACE SYSTEM MPV 9.1 8.9 - 12.8 Fl INTERFACE SYSTEM NEUTROPHILS 76.8(H) 42.2 - 75.2 % INTERFACE SYSTEM LYMPHOCYTES 14.6(L) 24.0 - 44.0 % INTERFACE SYSTEM MONOCYTES 7.8 2.0 - 10.0 % INTERFACE SYSTEM EOSINOPHILS 0.7 0.0 - 7.0 % INTERFACE SYSTEM BASOPHILS 0.1 0.0 - 1.0 % INTERFACE SYSTEM NEUTROPHIL ABSOLUTE 9.8(H) 2.0 - 8.0 K/uL INTERFACE SYSTEM LYMPHOCYTE ABSOLUTE 1.9 1.2 - 4.0 K/ul INTERFACE SYSTEM MONOCYTE ABSOLUTE 1.0(H) 0.1 - 0.6 K/ul INTERFACE SYSTEM EOSINOPHIL ABSOLUTE 0.1 0.0 - 0.7 K/ul INTERFACE SYSTEM BASOPHILS ABSOLUTE 0.0 0.0 - 0.2 K/ul INTERFACE SYSTEM 11/30/2005 6:07 AM CDT Sushil Kearns MD HEMATOLOGY ORDERABLES Final Result Performing Organization Address [facility] Phone Number INTERFACE SYSTEM Refer to clinic/hospital department * (ABNORMAL) BASIC METABOLIC PANEL (11/30/2005 6:06 AM CDT) GLUCOSE 130(H) 70 - 110 mg/dL INTERFACE SYSTEM BUN 7 7 - 17 mg/dL INTERFACE SYSTEM CREATININE 0.6(L) 0.7 - 1.2 mg/dL INTERFACE SYSTEM SODIUM 137 136 - 145 mEq/L INTERFACE SYSTEM POTASSIUM 3.5 3.5 - 5.0 mEq/L INTERFACE SYSTEM CHLORIDE 107 95 - 110 mEq/L INTERFACE SYSTEM CO2 25 22 - 32 mmol/l INTERFACE SYSTEM ANION GAP 9 9 - 20 mEq/L INTERFACE SYSTEM OSMOLALITY, CALCULATED 281 275 - 295 mOsm/Kg INTERFACE SYSTEM CALCIUM 8.0(L) 8.4 - 10.5 mg/dL INTERFACE SYSTEM 11/30/2005 6:06 AM CDT Sushil Kearns MD CHEMISTRY ORDERABLES Final R esult Performing Organization Address [facility] Phone Number INTERFACE SYSTEM Refer to clinic/hospital department * (ABNORMAL) COMPREHENSIVE METABOLIC PANEL (11/29/2005 7:10 AM CDT) GLUCOSE 101 70 - 110 mg/dL INTERFACE SYSTEM BUN 7 7 - 17 mg/dL INTERFACE SYSTEM CREATININE 0.7 0.7 - 1.2 mg/dL INTERFACE SYSTEM SODIUM 138 136 - 145 mEq/L INTERFACE SYSTEM POTASSIUM 4.1 3.5 - 5.0 mEq/L INTERFACE SYSTEM Comment:Specimen slightly he molyzed CHLORIDE 108 95 - 110 mEq/L INTERFACE SYSTEM CO2 16(L) 22 - 32 mmol/l INTERFACE SYSTEM ANION GAP 18 9 - 20 mEq/L INTERFACE SYSTEM OSMOLALITY, CALCULATED 282 275 - 295 mOsm/Kg INTERFACE SYSTEM CALCIUM 9.7 8.4 - 10.5 mg/dL INTERFACE SYSTEM TOTAL PROTEIN 8.2 6.3 - 8.2 g/dL INTERFACE SYSTEM ALBUMIN 4.4 3.5 - 5.0 g/dL INTERFACE SYSTEM GLOBULIN (CALC) 3.8 2.4 - 3.9 g/dL INTERFACE SYSTEM ALBUMIN/GLOBULIN RATIO 1.2 1.0 - 2.3 INTERFACE SYSTEM ALKALINE PHOSPHATASE 60 25 - 100 U/L INTERFACE SYSTEM Comment: As of 05 the [facility] has changed testing methods. The new reference range is 25-100 The old referance range was 38-126 AST 25 8 - 33 U/L INTERFACE SYSTEM Comment: As of 05 the [facility] has changed testing methods. The new reference range is 8-33 The old referance range was Males 17-59 Females 14-36 ALT 29 4 - 36 IU/L INTERFACE SYSTEM Comment: As of 05 the [facility] has changed testing methods. The new reference range is 4-36 The old referance range was Males 21-72 Females 9-52 BILIRUBIN TOTAL 0.5 0.3 - 1.2 mg/dL INTERFACE SYSTEM Comment: As of 05 the [facility] has changed testing methods. The new reference range is 0.3-1.2 The old referance range was 0.2-1.4 11/29/2005 7:10 AM CDT us Sushil Kearns MD CHEMISTRY ORDERABLES Final R esult INTERFACE SYSTEM Refer to clinic/hospital department * (ABNORMAL) CBC WITH DIFFERENTIAL (11/29/2005 7:10 AM CDT) PERIPHERAL BLOOD SMEAR REVIEW Automated Diff Automated Diff INTERFACE SYSTEM WBC 8.9 4.5 - 11.0 K/ul INTERFACE SYSTEM RBC 4.77 4.20 - 5.40 Mil/ul INTERFACE SYSTEM HEMOGLOBIN 14.2 12.0 - 16.0 g/dL INTERFACE SYSTEM HEMATOCRIT 41.3 36.0 - 46.0 % INTERFACE SYSTEM MCV 86.6 84.0 - 103.0 Fl INTERFACE SYSTEM MCH 29.8 27.0 - 34.0 pg INTERFACE SYSTEM MCHC 34.4 30.0 - 35.0 g/dL INTERFACE SYSTEM RDW 12.7 11.0 - 14.5 % INTERFACE SYSTEM PLATELETS 402 140 - 440 K/ul INTERFACE SYSTEM MPV 8.9 8.9 - 12.8 Fl INTERFACE SYSTEM NEUTROPHILS 69.5 42.2 - 75.2 % INTERFACE SYSTEM LYMPHOCYTES 20.3(L) 24.0 - 44.0 % INTERFACE SYSTEM MONOCYTES 7.5 2.0 - 10.0 % INTERFA CE SYSTEM EOSINOPHILS 2.4 0.0 - 7.0 % INTERF EL SYSTEM BASOPHILS 0.3 0.0 - 1.0 % INTERFAC E SYSTEM NEUTROPHIL ABSOLUTE 6.2 2.0 - 8.0 K/uL INTERFACE SYSTEM LYMPHOCYTE ABSOLUTE 1.8 1.2 - 4.0 K/ul INTERFACE SYSTEM MONOCYTE ABSOLUTE 0.7(H) 0.1 - 0.6 K/ul INTERFACE SYSTEM EOSINOPHIL ABSOLUTE 0.2 0.0 - 0.7 K/ul INTERFACE SYSTEM BASOPHILS ABSOLUTE 0.0 0.0 - 0.2 K/ul INTERFACE SYSTEM 11/29/2005 7:10 AM CDT us Sushil Kearns MD HEMATOLOGY ORDERABLES Final Result INTERFACE SYSTEM Refer to clinic/hospital department documented in this encounter Visit Diagnoses Diagnosis Malignant neoplasm of corpus uteri, except isthmus (CMS/HCC)- Primary Malignant neoplasm of corpus uteri, except isthmus documented in this encounter Care Teams Screw Machine Setter Relationship Specialty Start Date End Date Patricio Castorena MD [address] [place] [address] PCP - General Internal Medicine 04/07/17 documented as of this encounter
--- OUTSIDE RECORDS SUMMARY | 2025-01-08 12:11 | XMS_ITS | Encounter Summary ---
Author Organization [facility] Address [address] [place] [address] Care Team Providers Care Logging Worker Name Role Phone Patricio Castorena MD Primary Care Provider [phone] Encounter Details Date Type Department Care Team (Latest Contact Info) Description 11/12/2005 Outpatient Historical [facility] [address] [address] [place] [address] Aretha Zamora MD NO ADDRESS ON FILE Other Specified Pre-Operative Examination (Primary Dx) Social History Tobacco Use Types Packs/Day Years Used Date Smoking Tobacco: Never Assessed Comments Unknown Sex and Gender Information Value Date Recorded Sex Assigned at Not on file 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 [facility] has changed the methodology for ThCG, and with this change the reference range has changed from 0-5.0 mIU/ml to 0-10.0 mIU/ml. ----- ----- Total HCG levels between 10 mIU/mL and 25 mIU/mL may be indicative of early but need to be correlated with other clinical findings. HCG ranges during normal , as reported by the car electronics installer, are summarized as follows: Gestational Age Expected hCG Values(mIU/ml) 0.2-1 Weeks 5 - 50 1-2 Weeks 50 - 500 2-3 Weeks 100 - 5,000 3-4 Weeks 1,000 - 50,000 5-6 Weeks 10,000 - 100,000 6-8 Weeks 15,000 - 200,000 2-3 Months 10,000 - 100,000 11/12/2005 2:37 PM CDT us Historical Provider CHEMISTRY ORDERABLES Final R esult INTERFACE SYSTEM Refer to clinic/hospital department * (ABNORMAL) CBC WITH DIFFERENTIAL (11/12/2005 2:37 PM CDT) WBC 8.2 4.5 - 11.0 K/ul INTERFACE SYSTEM RBC 4.60 4.20 - 5.40 Mil/ul INTERFACE SYSTEM HEMOGLOBIN 13.5 12.0 - 16.0 g/dL INTERFACE SYSTEM HEMATOCRIT 41.1 36.0 - 46.0 % INTERFACE SYSTEM MCV 89.3 84.0 - 103.0 Fl INTERFACE SYSTEM MCH 29.3 27.0 - 34.0 pg INTERFACE SYSTEM MCHC 32.8 30.0 - 35.0 g/dL INTERFACE SYSTEM RDW 12.9 11.0 - 14.5 % INTERFACE SYSTEM PLATELETS 420 140 - 440 K/ul INTERFACE SYSTEM MPV 9.1 8.9 - 12.8 Fl INTERFACE SYSTEM NEUTROPHILS 63.6 42.2 - 75.2 % INTERFACE SYSTEM LYMPHOCYTES 23.8(L) 24.0 - 44.0 % INTERFACE SYSTEM MONOCYTES 8.8 2.0 - 10.0 % INTERFACE SYSTEM EOSINOPHILS 3.4 0.0 - 7.0 % INTERFACE SYSTEM BASOPHILS 0.4 0.0 - 1.0 % INTERFACE SYSTEM NEUTROPHIL ABSOLUTE 5.2 2.0 - 8.0 K/uL INTERFACE SYSTEM LYMPHOCYTE ABSOLUTE 1.9 1.2 - 4.0 K/ul INTERFACE SYSTEM MONOCYTE ABSOLUTE 0.7(H) 0.1 - 0.6 K/ul INTERFACE SYSTEM EOSINOPHIL ABSOLUTE 0.3 0.0 - 0.7 K/ul INTERFACE SYSTEM BASOPHILS ABSOLUTE 0.0 0.0 - 0.2 K/ul INTERFACE SYSTEM 11/12/2005 2:37 PM CDT us Historical Provider HEMATOLOGY ORDERABLES Final Result INTERFACE SYSTEM Refer to clinic/hospital department documented in this encounter Visit Diagnoses Diagnosis Other specified pre-operative examination- Primary documented in this encounter Care Teams Logging Worker Relationship Specialty Start Date End Date Patricio Castorena MD [address] [place] [address] PCP - General Internal Medicine 04/07/17 documented as of this encounter
--- OUTSIDE RECORDS SUMMARY | 2025-01-08 12:11 | XMS_ITS | Encounter Summary ---
Author Organization [facility] Address [address] [place] [address] Care Team Providers Care Template Fitter Name Role Phone Patricio Castorena MD Primary Care Provider [phone] Encounter Details Date Type Department Care Team (Late st Contact Info) Description 12/06/2005 Inpatient Historical [facility] IN BED Sushil Kearns MD [address] [place] [address] Other Postoperative Infection (Primary Dx) Social History Tobacco Use Types Packs/Day Years Used Date Smoking Tobacco: Never Assessed Comments Unknown Sex and Gender Information Value Date Recorded Sex Assigned at Not on file Legal 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 Gender Identity Not on file Sexual Orientation Not on file documented as of this encounter Plan of Treatment Not on file documented as of this encounter Procedures Procedure Name Priority Date/Time Associated Diagnosis Comments CBC WITH DIFFERENTIAL Routine 12/09/2005 5:48 AM CDT CBC WITH DIFFERENTIAL Routine 12/07/2005 5:35 AM CDT ICTOTEST Routine 12/06/2005 2:30 PM CDT URINALYSIS MICROSCOPY ONLY Routine 12/06/2005 2:30 PM CDT CBC WITH DIFFERENTIAL Routine 12/06/2005 2:30 PM CDT KETONE, QUALITATIVE, URINE Routine 12/06/2005 2:30 PM CDT URINALYSIS W/REFLEX MICROSCOPIC Routine 12/06/2005 2:30 PM CDT BASIC METABOLIC PANEL Routine 12/06/2005 2:30 PM CDT documented in this encounter Results * (ABNORMAL) CBC WITH DIFFERENTIAL (12/09/2005 5:48 AM CDT) WBC 6.6 4.5 - 11.0 K/ul INTERFACE SYSTEM RBC 4.15(L) 4.20 - 5.40 Mil/ul INTERFACE SYSTEM HEMOGLOBIN 12.4 12.0 - 16.0 g/dL INTERFACE SYSTEM HEMATOCRIT 34.6(L) 36.0 - 46.0 % INTERFACE SYSTEM MCV 83.4(L) 84.0 - 103.0 Fl INTERFACE SYSTEM MCH 29.9 27.0 - 34.0 pg INTERFACE SYSTEM MCHC 35.8(H) 30.0 - 35.0 g/dL INTERFACE SYSTEM RDW 12.5 11.0 - 14.5 % INTERFACE SYSTEM PLATELETS 372 140 - 440 K/ul INTERFACE SYSTEM MPV 8.4(L) 8.9 - 12.8 Fl INTERFACE SYSTEM NEUTROPHILS 67.4 42.2 - 75.2 % INTERFACE SYSTEM LYMPHOCYTES 21.0(L) 24.0 - 44.0 % INTERFACE SYSTEM MONOCYTES 9.3 2.0 - 10.0 % INTERFACE SYSTEM EOSINOPHILS 2.1 0.0 - 7.0 % INTERFACE SYSTEM BASOPHILS 0.2 0.0 - 1.0 % INTERFACE SYSTEM NEUTROPHIL ABSOLUTE 4.4 2.0 - 8.0 K/uL INTERFACE SYSTEM LYMPHOCYTE ABSOLUTE 1.4 1.2 - 4.0 K/ul INTERFACE SYSTEM MONOCYTE ABSOLUTE 0.6 0.1 - 0.6 K/ul INTERFACE SYSTEM EOSINOPHIL ABSOLUTE 0.1 0.0 - 0.7 K/ul INTERFACE SYSTEM BASOPHILS ABSOLUTE 0.0 0.0 - 0.2 K/ul INTERFACE SYSTEM 12/09/2005 5:48 AM CDT us Sushil Kearns MD HEMATOLOGY ORDERABLES Final Result INTERFACE SYSTEM Refer to clinic/hospital department * (ABNORMAL) CBC WITH DIFFERENTIAL (12/07/2005 5:35 AM CDT) WBC 9.6 4.5 - 11.0 K/ul INTERFACE SYSTEM RBC 3.99(L) 4.20 - 5.40 Mil/ul INTERFACE SYSTEM HEMOGLOBIN 11.7(L) 12.0 - 16.0 g/dL INTERFACE SYSTEM HEMATOCRIT 33.9(L) 36.0 - 46.0 % INTERFACE SYSTEM MCV 85.0 84.0 - 103.0 Fl INTERFACE SYSTEM MCH 29.3 27.0 - 34.0 pg INTERFACE SYSTEM MCHC 34.5 30.0 - 35.0 g/dL INTERFACE SYSTEM RDW 12.4 11.0 - 14.5 % INTERFACE SYSTEM PLATELETS 391 140 - 440 K/ul INTERFACE SYSTEM MPV 8.3(L) 8.9 - 12.8 Fl INTERFACE SYSTEM NEUTROPHILS 76.0(H) 42.2 - 75.2 % INTERFACE SYSTEM LYMPHOCYTES 12.0(L) 24.0 - 44.0 % INTERFACE SYSTEM MONOCYTES 9.8 2.0 - 10.0 % INTERFA CE SYSTEM EOSINOPHILS 2.0 0.0 - 7.0 % INTERF EL SYSTEM BASOPHILS 0.2 0.0 - 1.0 % INTERFAC E SYSTEM NEUTROPHIL ABSOLUTE 7.3 2.0 - 8.0 K/uL INTERFACE SYSTEM LYMPHOCYTE ABSOLUTE 1.2 1.2 - 4.0 K/ul INTERFACE SYSTEM MONOCYTE ABSOLUTE 0.9(H) 0.1 - 0.6 K/ul INTERFACE SYSTEM EOSINOPHIL ABSOLUTE 0.2 0.0 - 0.7 K/ul INTERFACE SYSTEM BASOPHILS ABSOLUTE 0.0 0.0 - 0.2 K/ul INTERFACE SYSTEM PERIPHERAL BLOOD SMEAR REVIEW Smear Reviewed Automated Diff INTERFACE SYSTEM 12/07/2005 5:35 AM CDT us Sushil Kearns MD HEMATOLOGY ORDERABLES Final Result INTERFACE SYSTEM Refer to clinic/hospital department * (ABNORMAL) URINALYSIS MICROSCOPY ONLY (12/06/2005 2:30 PM CDT) WBC URINE 16-25(A) 0 - 2 INTERFACE SYSTEM RBC UA 11-15(A) 0 - 2 INTERFACE SYSTEM HYALINE CAST None Seen 0 - 2 INTERFA CE SYSTEM BACTERIA UA Few(A) None Seen INTERFAC E SYSTEM 12/06/2005 2:30 PM CDT Eloy Marquez MD URINE ORDERABLES Final Res ult Performing Organization Address [facility] Phone Number INTERFACE SYSTEM Refer to clinic/hospital department * ICTOTEST (12/06/2005 2:30 PM CDT) ICTO Negative Negative INTERFACE SYSTEM 12/06/2005 2:30 PM CDT Eloy Marquez MD URINE ORDERABLES Final Res ult Performing Organization Address [facility] INTERFACE SYSTEM Refer to clinic/hospital department * (ABNORMAL) ACETONE QUALITATIVE, URINE (12/06/2005 2:30 PM CDT) KETONES UA Large(A) Negative INTERFACE SYSTEM 12/06/2005 2:30 PM CDT Eloy Marquez MD URINE ORDERABLES Final Res ult Performing Organization Address [facility] INTERFACE SYSTEM Refer to clinic/hospital department * (ABNORMAL) URINALYSIS (12/06/2005 2:30 PM CDT) COLOR UA Yellow Straw INTERFACE SYSTEM CLARITY UA Clear Clear INTERFACE SYSTEM LEUKOCYTE ESTERASE UA Trace(A) NEGATIVE INTERFACE SYSTEM NITRITE UA NEGATIVE NEGATIVE INTERFACE SYSTEM PH UA 6.0 5.0 - 9.0 INTERFACE SYSTEM PROTEIN UA 30 mg/dl(A) NEGATIVE INTERFA CE SYSTEM Comment: As of 05 positive protein results obtained on routine urinalysis will not be confirmed by sulfosalicylic acid (SSA) precipitation. Current methodology for protein detection is highly sensitive for detection of albumin; therefore, confirmation is not necessary. GLUCOSE UA NEGATIVE NEGATIVE INTERFACE SYSTEM UROBILINOGEN UA 1.0(A) 0.2 INTE RFACE SYSTEM BLOOD UA Large(A) NEGATIVE INTERFACE SYSTEM SPECIFIC GRAVITY UA >=1.030(A) 1.005 - 1.030 INTERFACE SYSTEM MICRO EXAM Yes(A) No INTERFACE SYSTEM 12/06/2005 2:30 PM CDT Eloy aMrquez MD URINE ORDERABLES Final Res ult Performing Organization Address [facility] Phone Number INTERFACE SYSTEM Refer to clinic/hospital department * (ABNORMAL) BASIC METABOLIC PANEL (12/06/2005 2:30 PM CDT) GLUCOSE 94 70 - 110 mg/dL INTERFACE SYSTEM BUN 8 7 - 17 mg/dL INTERFACE SYSTEM CREATININE 0.5(L) 0.7 - 1.2 mg/dL INTERFACE SYSTEM SODIUM 141 136 - 145 mEq/L INTERFACE SYSTEM POTASSIUM 3.1(L) 3.5 - 5.0 mEq/L INTERFACE SYSTEM CHLORIDE 104 95 - 110 mEq/L INTERFACE SYSTEM CO2 25 22 - 32 mmol/l INTERFACE SYSTEM ANION GAP 15 9 - 20 mEq/L INTERFACE SYSTEM OSMOLALITY, CALCULATED 286 275 - 295 mOsm/Kg INTERFACE SYSTEM CALCIUM 9.2 8.4 - 10.5 mg/dL INTERFACE SYSTEM 12/06/2005 2:30 PM CDT Eloy Marquez MD CHEMISTRY ORDERABLES Final Result Performing Organization Address [facility] Phone Number INTERFACE SYSTEM Refer to clinic/hospital department * (ABNORMAL) CBC WITH DIFFERENTIAL (12/06/2005 2:30 PM CDT) WBC 12.5(H) 4.5 - 11.0 K/ul INTERFACE SYSTEM RBC 4.35 4.20 - 5.40 Mil/ul INTERFACE SYSTEM HEMOGLOBIN 12.9 12.0 - 16.0 g/dL INTERFACE SYSTEM HEMATOCRIT 37.4 36.0 - 46.0 % INTERFACE SYSTEM MCV 86.0 84.0 - 103.0 Fl INTERFACE SYSTEM MCH 29.7 27.0 - 34.0 pg INTERFACE SYSTEM MCHC 34.5 30.0 - 35.0 g/dL INTERFACE SYSTEM RDW 12.4 11.0 - 14.5 % INTERFACE SYSTEM PLATELETS 556(H) 140 - 440 K/ul INTERFACE SYSTEM MPV 8.4(L) 8.9 - 12.8 Fl INTERFACE SYSTEM NEUTROPHILS 80.9(H) 42.2 - 75.2 % INTERFACE SYSTEM LYMPHOCYTES 11.3(L) 24.0 - 44.0 % INTERFACE SYSTEM MONOCYTES 7.0 2.0 - 10.0 % INTERFA CE SYSTEM EOSINOPHILS 0.6 0.0 - 7.0 % INTERF EL SYSTEM BASOPHILS 0.2 0.0 - 1.0 % INTERFAC E SYSTEM NEUTROPHIL ABSOLUTE 10.1(H) 2.0 - 8.0 K/uL INTERFACE SYSTEM LYMPHOCYTE ABSOLUTE 1.4 1.2 - 4.0 K/ul INTERFACE SYSTEM MONOCYTE ABSOLUTE 0.9(H) 0.1 - 0.6 K/ul INTERFACE SYSTEM EOSINOPHIL ABSOLUTE 0.1 0.0 - 0.7 K/ul INTERFACE SYSTEM BASOPHILS ABSOLUTE 0.0 0.0 - 0.2 K/ul INTERFACE SYSTEM HEM COMMENT Automated Diff Automated Diff INTERFACE SYSTEM 12/06/2005 2:30 PM CDT us Eloy Marquez MD HEMATOLOGY ORDERABLES Francia l Result INTERFACE SYSTEM Refer to clinic/hospital department documented in this encounter Visit Diagnoses Diagnosis Other postoperative infection- Primary documented in this encounter Care Teams Template Fitter Relationship Specialty Start Date End Date Patricio Castorena MD [address] [place] [address] PCP - General Internal Medicine 04/07/17 documented as of this encounter
--- OUTSIDE RECORDS SUMMARY | 2025-01-08 12:11 | XMS_ITS | Encounter Summary ---
Author Organization [facility] [employer] [facility] Address [address] [place] [address] Care Team Providers Care Marine Operations Coordinator Name Role Phone Patricio Castorena MD Primary Care Provider [phone] Encounter Details Date Type Department Care Team (Latest Contact Info) Description 11/10/2005 Outpatient Historical [employer] [facility] [place] [address] [place] [phone] Aretha Zamora MD NO ADDRESS ON FILE Excessive or Frequent Menstruation (Primary Dx) Social History Tobacco Use Types Packs/Day Years Used Date Smoking Tobacco: Never Assessed Comments Unknown Sex and Gender Information Value Date Recorded Sex Assigned at Not on file 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
--- OUTSIDE RECORDS SUMMARY | 2025-01-08 12:11 | XMS_ITS | Encounter Summary ---
Author Organization [facility] Address [address] [place] [address] Care Team Providers Care Lead Java Software Engineer Name Role Phone Patricio Castorena MD Primary Care Provider [phone] Encounter Details Date Type Department Care Team (Latest Contact Info) Description 11/16/2006 Outpatient Historical [facility] Operating Room [address] [place] [phone] Bright Webber MD NO ADDRESS ON FILE Unspecified Ventral Hernia without Mention of Obstruction or Gangrene (Primary Dx) Social History Tobacco Use Types Packs/Day Years Used Date Smoking Tobacco: Never Assessed Comments Unknown Sex and Gender Information Value Date Recorded Sex Assigned at Not on file Legal 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
--- OUTSIDE RECORDS SUMMARY | 2025-01-08 12:11 | XMS_ITS | Clinical Summary ---
Author Organization [facility] Address [address] Pete: [place] [address] Care Team Providers Care Tile Mechanic Helper Name Role Phone Patricio Castoerna MD Primary Care Provider [phone] Allergies Active Allergy Reactions Criticality Noted Date Comments Dashawn Inhibitors Cough Low 04/05/2007 Mometasone Swelling,Headache Low 03/25/2015 Penicillins Hives High 04/05/2008 Medications triamterene-hydro CHLOROthiazide (MAXZIDE 25) 37.5-25 mg tablet TAKE ONE TABLET BY MOUTH ONCE DAILY 30 Tablet 2 7 Active albuterol sulfate 90 mcg/Actuation inhalerIndication s:Moderate persistent asthma without complication Take 2 Puffs by inhalation every 6 hours as needed for Shortness of Breath. 6.7 Gram 11 5 Active beclomethasone (QVAR) 40 mcg/actuation Aerosol Take 2 Puffs by inhalation 2 times daily. 8.7 Gram 11 5 Active Active Problems Problem Noted Date Diagnosed Date Moderate persistent asthma without complication 03/17/2015 Overactive bladder 06/27/2012 Allergic rhinitis 11/13/2009 History of endometrial cancer 04/18/2009 Overview (11/13/2020): S/P CADY HERNANDEZ,Staging 11/29/05 Morbid obesity 04/09/2008 Hypertension 04/09/2008 Nonalcoholic steatohepatitis (JACOB) 04/09/2008 Esophageal reflux 04/09/2008 Mild Asthma 04/09/2008 Resolved Problems Problem Noted Date Diagnosed Date Resolved Date Left shoulder pain 09/28/2013 4 Headaches 04/09/2008 12/04/2013 Immunizations Immunization Administration Dates Next Due (TDVAX)(7 YRS UP) TETANUS AN D DIPHTHERIA TOXOIDS, ADSORBED (2 LF OF TETANUS TOXOID AND 2 LF OF DIPHTHERIA TOXOID), 0.5ML (PF), IM 10/09/1998 Influenza A (H1N1) Vaccine IM 05/17/2009 Influenza Seasonal Unspecifi ed Formulation IM 05/03/2015,05/18/2014,05/09/2013,2008 Influenza Vaccine Split 3+ Yrs PF IM 05/24/2012 Family History Medical History Relation Name Comments Cancer Other self Uterine cancer Heart Disease Son Breast Cancer Neg Hx Pt. declined Colon Cancer Neg Hx Ovarian Cancer Neg Hx Relation Name Status Comments Other self Alive Son Alive Social History Tobacco Use Types Packs/Day Years Used Date Smoking Tobacco: Never Smokeless Tobacco: Never Alcohol Use Standard Drinks/Week Comments No 0 (1 standard drink = 0.6 oz pur e alcohol) Comments Unknown Sex and Gender Information Value Date Recorded Sex Assigned at Not on file Legal Sex Female 2:50 PM PRODUCT INSPECTION COORDINATOR Gender Identity Not on file Sexual Orientation Not on file Last Filed Vital Signs Vital Sign Reading Time Taken Comments Blood Pressure 120/70 05/16/2017 1:03 PM CDT Pulse 66 05/16/2017 1:03 PM CDT Temperature 37.1 C (98.7 F) 10/14/2015 12:23 PM CDT Respiratory Rate 18 10/14/2015 1:50 PM CDT Oxygen Saturation - - Inhaled Oxygen Concentration - - Weight 74.4 kg (164 lb) 05/16/2017 1:03 PM CDT Height 162.6 cm (5' 4 ) 05/16/2017 1:03 PM CDT Body Mass Index 28.15 05/16/2017 1:03 PM CDT Plan of Treatment Health Maintenance Due Date Last Done Comments UPPER GI ENDOSCOPY 1982 HPV/Cotest (21-29) 1985 HPV/Cotest (30-65) 1994 DTAP/TDAP/TD VACCINES (1 - Tdap) 10/10/1998 10/09/1998 FIT-DNA Q 3 years 2009 FIT/FOBT Q 1 year 2009 Flex Sig/CT Colonography Q 5 years 2009 ZOSTER VACCINE (1 of 2) 2014 CERVICAL CANCER SCREENING 10/18/2017 PAP SMEAR 10/18/2017 10/18/2014 BREAST CANCER SCREENING 05/24/2018 05/24/20 17, 05/14/2016, 03/17/2015, Additional history exists INFLUENZA VACCINE (#1) 2024 5, 05/18/2014, 05/09/2013, Additional history exists COLORECTAL SCREENING 10/13/2025 10/14/2015 Colorectal Cancer Screening 10/13/2025 RSV VACCINE (60+ or ) (1 - 1-dose 75+ series) 10/20/2039 HEPATITIS B VACCINES Aged Out No long er eligible based on patient's age to complete this topic Procedures Procedure Name Priority Date/Time Associated Diagnosis Comments MAMMO 3D FATMATA SCREEN BILAT W OR WO CAD Routine 05/24/2017 12:42 PM PRODUCT INSPECTION COORDINATOR Encounter for screening mammogram for malignant neoplasm of breast CERV/VAG CYTOPATH, THIN PREP PARTS AND SERVICE MANAGER Routine 10/18/2014 10:50 AM CDT from Last 3 Months or Most Recently Relevant to Health Maintenance Results * MAMMO SCRN BILAT 3D FATMATA W OR WO CAD (05/24/2017 12:42 PM PRODUCT INSPECTION COORDINATOR) Anatomical Region Laterality Modality Breast Bilateral Other Narrative 05/25/2017 9:03 AM PRODUCT INSPECTION COORDINATOR Bilateral Mammogram Reason for Exam: Screening Comparison: [...] significant new findings since the prior mammogram(s). Procedure Note Will Ling MD - 09/09/2021 Bilateral Mammogram Reason for Exam: Screening Comparison: [...] Breast Composition: There are scattered areas of fibroglandulardensity. There are no suspicious masses, areas of architectural distortions, or microcalcifications to suggest malignancy. No significant new findings since the prior mammogram(s). us Jeanine Cox STEAMER BLOCKER MAMMO ORDERABLES Final Resul t * CERV/VAG CYTOPATH, THIN PREP PARTS AND SERVICE MANAGER (10/18/2014 10:50 AM CDT) PATHOLOGY/CY TOLOGY REPORT [facility] Anatomic Pathology Dept [address] [place] [address] [facility] [address] Patient: KERRI SILVESTRE Accn No: [id number] , [id number] Collected: 10/18/2014 10:50:00 AM All cases except those with a DP prefix are performed by pathologists from [facility] at [facility]. Case type DP is performed by Dr. Jake Valdivia, [facility], [facility] [place] [place], [address], [address], [place] [address] (CLIA #[id number]) (Ph. [phone]). CYTOLOGY MEDIA AID FINAL REPORT - - PARTS AND SERVICE MANAGER PAP History Specimen Type: Endocervical LMP: None Provided; Previous History indicates the Patient has had a Hysterectomy. Previous Pap History: 08/2013 (HX ENDOMETRIAL CANCER) Specimen Adequacy Satisfactory for interpretation. The smear lacks endocervical or metaplastic cells, consistent with the patient's clinical history. Diagnosis NEGATIVE FOR INTRAEPITHELIAL LESION OR MALIGNANCY. (Previously noted as Within Normal Limits) Planning Intern/ EDR Pathologist: 10/23/14 Completed by: VIKAS PELLETIER BSCT (ASCP) (Electronically signed by) 10/23/14 Additional Diagnosis Atrophic Smear Comment Routine follow-up is suggested. Important Information About Pap Smears The Pap smear is associated with a low but well-documented and probably irreducible false negative rate of up to 10%. Additionally, the false positive rate for a diagnosis of invasive carcinoma or HSIL has been estimated to be approximately 1-10%. Therefore, any visible lesion on the cervix should be biopsied regardless of Pap smear findings. HPV Testing off the Thin Prep vial can be done as a means of further evaluating a Thin Prep Report. For information about ordering the HPV test, phone Virology at . Treatment or follow-up recommendations (if any) that are contained within this report are based upon general recommendations as contained in 2001 Consensus Guidelines For Cervical Cytological Abnormalities IOANA: November 08, 2001, and are provided as a general guideline rather than as a specific recommendation. Final decisions about the most appropriate treatment and follow-up should be made on an individualized basis by the treating physician in consultation with his/her patient. 10/23/2014 3:00 PM CDT [facility] [employer] [facility] 10/18/2014 10:5 0 AM CDT Narrative [facility] [employer] [facility] - 10/23/2014 3:00 PM CDT Luis Ordered:IM Cytology Underwriting Support Specialist Final Bank Compliance Officer PAP Report:# us Nelson Cuevas MD PATHOLOGY/CYTOLOGY ORDERABLES E dited Result - Final [facility] [employer] [facility] CLIA# [id number] [address] [place] [address] [facility] [employer] [facility] CLIA # [id number] [address] [facility] [place] [address] from Last 3 Months or Most Recently Relevant to Health Maintenance Care Teams Tile Mechanic Helper Relationship Specialty Start Date End Date Patricio Castorena MD [address] [facility] [place] [address] PCP - General Internal Medicine 04/07/17
--- OUTSIDE RECORDS SUMMARY | 2025-01-08 12:11 | XMS_ITS | Encounter Summary ---
Author Organization [facility] Address [address] [place] [address] Care Team Providers Care System Administrator Name Role Phone Patricio Castorena MD Primary Care Provider [phone] Encounter Details Date Type Department Care Team (Latest Contact Info) Description 11/10/2005 Outpatient [facility] [address] [phone] Aretha Zamora MD NO ADDRESS ON FILE Excessive Menstruation (Primary Dx); Irregular Menstruation; Dysmenorrhea; Examination or Test, Negative Result Social History Tobacco Use Types Packs/Day Years Used Date Smoking Tobacco: Never Assessed Comments Unknown Sex and Gender Information Value Date Recorded Sex Assigned at Not on file Legal Sex Female 2:56 AM PRESIDENT/GM PRODUCTION [employer] LIVE EXPERIENCES Gender Identity Not on file Sexual Orientation Not on file documented as of this encounter Plan of Treatment Not on file documented as of this encounter Visit Diagnoses Diagnosis Excessive menstruation- Primary Excessive or frequent menstruation Irregular menstruation Irregular menstrual cycle Dysmenorrhea examination or test, negative result documented in this encounter Care Teams System Administrator Relationship Specialty Start Date End Date Patricio Castorena MD [address] [place] [address] PCP - General Internal Medicine 04/07/17 documented as of this encounter
--- OUTSIDE RECORDS SUMMARY | 2025-01-08 12:11 | XMS_ITS | Encounter Summary ---
Author Organization [facility] Address [address] [place] [address] Care Team Providers Care Red Cross Worker Name Role Phone Patricio Castorena MD Primary Care Provider [phone] Encounter Details Date Type Department Care Team (Late st Contact Info) Description 07/06/2006 Outpatient Historical [facility] Sushil Kearns MD [address] [place] [phone] Social History Tobacco Use Types Packs/Day Years Used Date Smoking Tobacco: Never Assessed Comments Unknown Sex and Gender Information Value Date Recorded Sex Assigned at Not on file Legal Sex Female 2:56 AM DIRECTOR OF REGULATORY AFFAIRS Gender Identity Not on file Sexual Orientation Not on file documented as of this encounter Plan of Treatment Not on file documented as of this encounter Visit Diagnoses Not on filedocumented in this encounter Care Teams Red Cross Worker Relationship Specialty Start Date End Date Patricio Castorena MD [address] [place] [address] PCP - General Internal Medicine 04/07/17 documented as of this encounter
--- OUTSIDE RECORDS SUMMARY | 2025-01-08 12:11 | XMS_ITS | Encounter Summary ---
Author Organization [facility] Address [address] [place] [address] Care Team Providers Care Green Chain Operator Name Role Phone Patricio Castorena MD Primary Care Provider [phone] Encounter Details Date Type Department Care Team (Latest Contact Info) Description 11/16/2005 Outpatient Historical [facility] Operating Room [address] [place] [phone] Aretha Zamora MD NO ADDRESS ON FILE Excessive or Frequent Menstruation (Primary Dx) Social History Tobacco Use Types Packs/Day Years Used Date Smoking Tobacco: Never Assessed Comments Unknown Sex and Gender Information Value Date Recorded Sex Assigned at Not on file Legal Sex Female 2:56 AM ADMINISTRATION CLERK Gender Identity Not on file Sexual Orientation Not on file documented as of this encounter Plan of Treatment Not on file documented as of this encounter Visit Diagnoses Diagnosis Excessive or frequent menstruation- Primary documented in this encounter Care Teams Green Chain Operator Relationship Specialty Start Date End Date Patricio Castorena MD [address] [place], [place] [address] PCP - General Internal Medicine 04/07/17 documented as of this encounter
--- OUTSIDE RECORDS SUMMARY | 2025-01-08 12:11 | XMS_ITS | Encounter Summary ---
Author Organization [facility] Address [address] [place] [address] Care Team Providers Care Inspector Plumbing Name Role Phone Patricio Castorena MD Primary Care Provider [phone] Encounter Details Date Type Department Care Team (Latest Contact Info) Description 11/25/2005 Outpatient [facility] [address] [phone] Aretha Zamora MD NO ADDRESS ON FILE Follow-Up Examination, Following Unspecified Surgery (Primary Dx); Excessive Menstruation Social History Tobacco Use Types Packs/Day Years Used Date Smoking Tobacco: Never Assessed Comments Unknown Sex and Gender Information Value Date Recorded Sex Assigned at Not on file Legal Sex Female 2:56 AM BROADCAST OPERATIONS TECHNICIAN Gender Identity Not on file Sexual Orientation Not on file documented as of this encounter Plan of Treatment Not on file documented as of this encounter Visit Diagnoses Diagnosis Follow-up examination, following unspecified surgery- Primary Excessive menstruation Excessive or frequent menstruation documented in this encounter Care Teams Inspector Plumbing Relationship Specialty Start Date End Date Patricio Castorena MD [address] [place] [address] PCP - General Internal Medicine 04/07/17 documented as of this encounter
--- OUTSIDE RECORDS SUMMARY | 2025-01-08 12:11 | XMS_ITS | Encounter Summary ---
Author Organization [facility] Address [address] [place] [address] Care Team Providers Care Seo Manager Name Role Phone Patricio Castorena MD Primary Care Provider [phone] Encounter Details Date Type Department Care Team (Latest Contact Info) Description 10/22/2005 Outpatient Historical [facility] [address] [place] [phone] Mindy Patel PA [address] [place] [address] Excessive or Frequent Menstruation (Primary Dx) Social History Tobacco Use Types Packs/Day Years Used Date Smoking Tobacco: Never Assessed Comments Unknown Sex and Gender Information Value Date Recorded Sex Assigned at Not on file Legal Sex Female 2:56 AM TRAFFIC COORDINATOR Gender Identity Not on file Sexual Orientation Not on file documented as of this encounter Plan of Treatment Not on file documented as of this encounter Procedures Procedure Name Priority Date/Time Associated Diagnosis Comments US PELVIS COMPLETE Routine 10/22/2005 12 :01 AM CDT documented in this encounter Results * US PELVIS COMPLETE (10/22/2005 12:01 AM CDT) Anatomical Region Laterality Modality Pelvis Other 10/22/2005 12:0 1 AM CDT Narrative 04/10/2009 7:49 AM CDT TRANSVAGINAL PELVIC ULTRASOUND - 10/22/05 HISTORY: Menorrhagia. Uterus is unremarkable measuring 10.0 x 4.4 x 5.0. Endometrium measures 4 mm in greatest thickness. Unremarkable left ovary measuring 1.9 x 1.7 x 1.2 cm. 5-mm follicular cyst of the right ovary. Right ovary overall measures 1.6 x 1.3 x 2.0 cm. No free fluid. IMPRESSION: Essentially unremarkable exam. Dictated By: Estefany Real M.D. Electronically Signed By: Estefany Real M.D. Date Signed: 10/24/05 CAROLINE Procedure Note Provider, Historical - 06/04/2009 TRANSVAGINAL PELVIC ULTRASOUND - 10/22/05 HISTORY: Menorrhagia. Uterus is unremarkable measuring 10.0 x 4.4 x 5.0. Endometrium measures 4mm in greatest thickness. Unremarkable left ovary measuring 1.9 x 1.7 x 1.2 cm. 5-mm follicular cyst of the right ovary. Right ovary overall measures 1.6x 1.3 x 2.0 cm. No free fluid. IMPRESSION: Essentially unremarkable exam. Dictated By: Estefany Real M.D. Electronically Signed By: Estefany Real M.D. Date Signed: 10/24/05 CAROLINE Mindy [place] ORDERABLES Final Resu lt documented in this encounter Visit Diagnoses Diagnosis Excessive or frequent menstruation- Primary documented in this encounter Care Teams Seo Manager Relationship Specialty Start Date End Date Patricio Castorena MD [address] [place] [address] PCP - General Internal Medicine 04/07/17 documented as of this encounter
--- OUTSIDE RECORDS SUMMARY | 2025-01-08 12:11 | XMS_ITS | Encounter Summary ---
Author Organization [facility] Address [address] [place] [address] Care Team Providers Care Doll Repairer Name Role Phone Patricio Castorena MD Primary Care Provider [phone] Encounter Details Date Type Department Care Team (Latest Contact Info) Description 12/28/2005 Outpatient [facility] [address] [place] [address] [address] [place] [address] Sushil Kearns MD [address] [place] [address] Leiomyoma of Uterus, Unspecified (Primary Dx) Social History Tobacco Use Types Packs/Day Years Used Date Smoking Tobacco: Never Assessed Comments Unknown Sex and Gender Information Value Date Recorded Sex Assigned at Not on file Legal Sex Female 2:56 AM 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
--- OUTSIDE RECORDS SUMMARY | 2025-01-08 12:11 | XMS_ITS | Encounter Summary ---
Author Organization [facility] Address [address] [place] [address] Care Team Providers Care Production Specialist Name Role Phone Patricio Castorena MD Primary Care Provider [phone] Encounter Details Date Type Department Care Team (Late st Contact Info) Description 11/04/2006 Outpatient Historical [facility] [place] [address] [facility] [place] [address] Bright Webber MD NO ADDRESS ON FILE Incisional Hernia (Primary Dx) Social History Tobacco Use Types Packs/Day Years Used Date Smoking Tobacco: Never Assessed Comments Unknown Sex and Gender Information Value Date Recorded Sex Assigned at Not on file Legal Sex Female 2:56 AM HARDSCAPE FOREMAN Gender Identity Not on file Sexual Orientation Not on file documented as of this encounter Plan of Treatment Not on file documented as of this encounter Visit Diagnoses Diagnosis Incisional hernia- Primary Incisional hernia without mention of obstruction or gangrene documented in this encounter Care Teams Production Specialist Relationship Specialty Start Date End Date Patricio Castorena MD [address] [place] [address] PCP - General Internal Medicine 04/07/17 documented as of this encounter
--- OUTSIDE RECORDS SUMMARY | 2025-01-08 12:11 | XMS_ITS | Encounter Summary ---
Author Organization [facility] Address [address] [place] [address] Care Team Providers Care Business Objects Report Developer Name Role Phone Patricio Castorena MD Primary Care Provider [phone] Encounter Details Date Type Department Care Team (Latest Contact Info) Description 11/29/2005 Outpatient Historical [facility] [address] [place] [address] [address] [place] [address] Sushil Kearns MD [address] [place] [address] Malig Duane Corpus Uteri (Primary Dx) Social History Tobacco Use Types Packs/Day Years Used Date Smoking Tobacco: Never Assessed Comments Unknown Sex and Gender Information Value Date Recorded Sex Assigned at Not on file Legal Sex Female 2:56 AM SEQUINS SPOOLER Gender Identity Not on file Sexual Orientation Not on file documented as of this encounter Plan of Treatment Not on file documented as of this encounter Visit Diagnoses Diagnosis Malig duane corpus uteri- Primary Malignant neoplasm of corpus uteri, except isthmus documented in this encounter Care Teams Business Objects Report Developer Relationship Specialty Start Date End Date Patricio Castorena MD [address] [place] [address] PCP - General Internal Medicine 04/07/17 documented as of this encounter
--- OUTSIDE RECORDS SUMMARY | 2025-01-08 12:11 | XMS_ITS | Encounter Summary ---
Author Organization [facility] Address [address] [place] [address] Care Team Providers Care Tank Carpenter Name Role Phone Patricio Castorena MD Primary Care Provider [phone] Encounter Details Date Type Department Care Team (Late st Contact Info) Description 03/03/1998 Outpatient Historical [facility] Social History Tobacco Use Types Packs/Day Years Used Date Smoking Tobacco: Never Assessed Comments Unknown Sex and Gender Information Value Date Recorded Sex Assigned at Not on file Legal Sex Female 2:56 AM ENERGY DIRECTOR Gender Identity Not on file Sexual Orientation Not on file documented as of this encounter Plan of Treatment Not on file documented as of this encounter Visit Diagnoses Not on filedocumented in this encounter Care Teams Tank Carpenter Relationship Specialty Start Date End Date Patricio Castorena MD [address] [place] [address] PCP - General Internal Medicine 04/07/17 documented as of this encounter
--- OUTSIDE RECORDS SUMMARY | 2025-01-08 12:11 | XMS_ITS | Encounter Summary ---
Author Organization [facility] Address [address] [place] [address] Care Team Providers Care Stone Layer Name Role Phone Patricio Castorena MD Primary Care Provider [phone] Encounter Details Date Type Department Care Team (Latest Contact Info) Description 06/10/1998 Outpatient [facility] [place] [id number] [phone] Kev Pabon MD NO ADDRESS ON FILE Acute upper respiratory infections of unspecified site (Primary Dx) Social History Tobacco Use Types Packs/Day Years Used Date Smoking Tobacco: Never Assessed Comments Unknown Sex and Gender Information Value Date Recorded Sex Assigned at Not on file Legal Sex Female 2:56 AM DONOR FLOOR TECHNICIAN Gender Identity Not on file Sexual Orientation Not on file documented as of this encounter Plan of Treatment Not on file documented as of this encounter Visit Diagnoses Diagnosis Acute upper respiratory infections of unspecified site- Primary documented in this encounter Care Teams Stone Layer Relationship Specialty Start Date End Date Patricio Castorena MD [address] [place] [address] PCP - General Internal Medicine 04/07/17 documented as of this encounter
--- OUTSIDE RECORDS SUMMARY | 2025-01-08 12:11 | XMS_ITS | Encounter Summary ---
Author Organization [facility] Address [address] [place] [address] Care Team Providers Care Matcher Operator Name Role Phone Patricio Castorena MD Primary Care Provider [phone] Encounter Details Date Type Department Care Team (Latest Contact Info) Description 12/06/2005 Outpatient Historical [facility] [address] [address] [place] [address] Sushil Kearns MD [address] [place] [address] Unspecified Vaginitis and Vulvovaginitis (Primary Dx); Acute Parametritis Social History Tobacco Use Types Packs/Day Years Used Date Smoking Tobacco: Never Assessed Comments Unknown Sex and Gender Information Value Date Recorded Sex Assigned at Not on file 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 Status post transabdominal hysterectomy. TECHNIQUE: Axial data is obtained from the dome of the diaphragm to the lower pelvis. Sagittal, coronal, and axial reformats were performed. Contrast was only seen in the bowel. There is a small amount of nephrogram effect. No vascular contrast was noted. The patient has either had an unsuccessful injection or has decreased renal function. FINDINGS: The lung bases show a small amount of pleural reaction. No confluent alveolar infiltrates are noted. The cardiac silhouette is within normal limits in size. The liver and spleen show small amounts of vascular enhancement. No focal lesions in the liver or spleen are noted. The gallbladder is unremarkable. The pancreas is unremarkable. The kidneys show no signs of hydronephrosis. Post surgical midline agatha and surgical access changes are present. Infiltration surrounding several bowel loops anteriorly is present adjacent to the abdominal wall. The colon is filled with gas and stool. There are multiple post surgical clips in the iliac distributions. There is a focal fluid collection with small amounts of gas in the region of the vaginal cuff. It measures 5.4 cm transverse, 5.4 cm AP, and 5 cm cephalocaudad. Vaginal cuff is contiguous with the fluid collection. There is gas adjacent to the vaginal cuff. The bladder is distended with noncontrasted urine. No free fluid is identified. No free air is identified. The bony structures are intact. IMPRESSION: Post operative pelvic fluid and gas collection consistent with abscess, adjacent to the vaginal cuff with extension into the interloop areas of the pelvis. [facility] D: 12-06-05 1636 Dictated By: Maycol Domínguez M.D. Electronically Signed By: Maycol Domínguez M.D. Date Signed: 12/07/05 Procedure Note 06/06/2009 CT ABDOMEN AND PELVIS WITH CONTRAST: REASON FOR EXAMINATION: Vaginal discharge. Status post transabdominal hysterectomy. TECHNIQUE: Axial data is obtained from the dome of the diaphragm to the lower pelvis.Sagittal, coronal, and axial reformats were performed. Contrast was only seen in the bowel. There is asmall amount of nephrogram effect. No vascular contrast was noted. The patient has either had anunsuccessful injection or has decreased renal function. FINDINGS: The lung bases show a small amount of pleural reaction. No confluentalveolar infiltrates are noted. The cardiac silhouette is within normal limits in size. The liver andspleen show small amounts of vascular enhancement. No focal lesions in the liver or spleen are noted.The gallbladder is unremarkable. The pancreas is unremarkable. The kidneys show no signs ofhydronephrosis. Post surgical midline agatha and surgical access changes are present. Infiltrationsurrounding several bowel loops anteriorly is present adjacent to the abdominal wall. The colon is filledwith gas and stool. There are multiple post surgical clips in the iliac distributions. There is a focal fluid collection with small amounts of gas in the regionof the vaginal cuff. It measures 5.4 cm transverse, 5.4 cm AP, and 5 cm cephalocaudad. Vaginalcuff is contiguous with the fluid collection. There is gas adjacent to the vaginal cuff. The bladder isdistended with noncontrasted urine. No free fluid is identified. No free air is identified. The bonystructures are intact. IMPRESSION: Post operative pelvic fluid and gas collection consistent with abscess,adjacent to the vaginal cuff with extension into the interloop areas of the pelvis. [facility] D: 12-06-05 1636 Dictated By: Maycol Domínguez M.D. Electronically Signed By: Maycol Domínguez M.D. Date Signed: 12/07/[address] ORDERABLES Final Resu lt documented in this encounter Visit Diagnoses Diagnosis Vaginitis and vulvovaginitis, unspecified- Primary Acute parametritis Acute parametritis and pelvic cellulitis documented in this encounter Care Teams Matcher Operator Relationship Specialty Start Date End Date Patricio Castorena MD [address] [place] [address] PCP - General Internal Medicine 04/07/17 documented as of this encounter
--- OUTSIDE RECORDS SUMMARY | 2025-01-08 12:11 | XMS_ITS | Encounter Summary ---
Author Organization [facility] Address [address] [place] [address] Care Team Providers Care Device Repair Technician Name Role Phone Patricio Castorena MD Primary Care Provider [phone] Encounter Details Date Type Department Care Team (Latest Contact Info) Description 11/25/2005 Outpatient Historical [facility] [address] [place] [address] [address] [place] [address] Sushil Kearns MD [address] [place] [address] Malig Duane Corpus Uteri (Primary Dx) Social History Tobacco Use Types Packs/Day Years Used Date Smoking Tobacco: Never Assessed Comments Unknown Sex and Gender Information Value Date Recorded Sex Assigned at Not on file 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
--- OUTSIDE RECORDS SUMMARY | 2025-01-08 12:11 | XMS_ITS | Encounter Summary ---
Author Organization [facility] Address [address] [place] [address] Care Team Providers Care Car Seat Coverer Name Role Phone Patricio Castorena MD Primary Care Provider [phone] Encounter Details Date Type Department Care Team ([facility] [address] Contact Info) Description 03/03/[address] 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
--- OUTSIDE RECORDS SUMMARY | 2025-01-08 12:11 | XMS_ITS | Encounter Summary ---
Author Organization [facility] Address [address] [place] [address] Care Team Providers Care Dieing Out Machine Operator Name Role Phone Patricio Castorena MD Primary Care Provider [phone] Encounter Details Date Type Department Care Team (Latest Contact Info) Description 2006 Outpatient Historical [facility] [address] [place] [address] [address] [place] [address] Sushil Kearns MD [address] [place] [address] Malig Duane Corpus Uteri (Primary Dx) Social History Tobacco Use Types Packs/Day Years Used Date Smoking Tobacco: Never Assessed Comments Unknown Sex and Gender Information Value Date Recorded Sex Assigned at Not on file 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
--- OUTSIDE RECORDS SUMMARY | 2025-01-08 12:11 | XMS_ITS | Encounter Summary ---
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
--- OUTSIDE RECORDS SUMMARY | 2025-01-08 12:11 | XMS_ITS | Encounter Summary ---
Author Organization [facility] Address [address] [place] [address] Care Team Providers Care Center Hole Reamer Name Role Phone Patricio Castorena MD Primary Care Provider [phone] Encounter Details Date Type Department Care Team (Late st Contact Info) Description 11/25/2006 Outpatient Historical [facility] [place] [address] [facility] [address] [place] [address] Bright Webber MD NO ADDRESS ON FILE Incisional Hernia (Primary Dx); Follow-Up Examination, Following Unspecified Surgery Social History Tobacco Use Types Packs/Day Years Used Date Smoking Tobacco: Never Assessed Comments Unknown Sex and Gender Information Value Date Recorded Sex Assigned at Not on file 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
--- OUTSIDE RECORDS SUMMARY | 2025-01-08 12:12 | XMS_ITS | Encounter Summary ---
Author Organization [facility] Address [address] [place] [address] Care Team Providers Care Data Warehouse Architect Name Role Phone Patricio Castorena MD Primary Care Provider [phone] Encounter Details Date Type Department Care Team (Latest Contact Info) Description 02/19/1998 Outpatient Historical [facility] Joseph Lind MD [address] [place] [address] Abdominal pain, unspecified site (Primary Dx) Social History Tobacco Use Types Packs/Day Years Used Date Smoking Tobacco: Never Assessed Comments Unknown Sex and Gender Information Value Date Recorded Sex Assigned at Not on file 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
--- OUTSIDE RECORDS SUMMARY | 2025-01-08 12:12 | XMS_ITS | Encounter Summary ---
Author Organization [facility] Address [address] [place] [address] Care Team Providers Care Member Services Representative Name Role Phone Patricio Castorena MD Primary Care Provider [phone] Encounter Details Date Type Department Care Team (Late st Contact Info) Description 06/06/2009 Ancillary Orders [facility] [address] [facility] [address] [place] [address] Nelson Cuevas MD [address] [place] [address] Social History Tobacco Use Types Packs/Day Years Used Date Smoking Tobacco: Never Alcohol Use Standard Drinks/Week Comments No 0 (1 standard drink = 0.6 oz pur e alcohol) Comments No Sex and Gender Information Value Date Recorded Sex Assigned at Not on file 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
--- OUTSIDE RECORDS SUMMARY | 2025-01-08 12:12 | XMS_ITS | Encounter Summary ---
Author Organization [facility] Address [address] [place] [address] Care Team Providers Care Fruit Preserver Name Role Phone Patricio Castorena MD Primary Care Provider [phone] Encounter Details Date Type Department Care Team (Latest Contact Info) Description 06/06/2009 Ancillary Orders [facility] [address] [address] Nelson Cuevas MD [address] [place] [address] Other (Abnormal) Findings on Radiological Examination of Breast Social History Tobacco Use Types Packs/Day Years Used Date Smoking Tobacco: Never Alcohol Use Standard Drinks/Week Comments No 0 (1 standard drink = 0.6 oz pur e alcohol) Comments No Sex and Gender Information Value Date Recorded Sex Assigned at Not on file Legal Sex Female 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 LITHODUPLICATOR 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 Gender Identity Not on file Sexual Orientation Not on file 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 DIGITAL LEFT ADDITIONAL VIEWS: Left MLO and true lateral views were obtained with a BB marking the nipple. The nipple is in profile. The additional views show no mass or distortion and no suspicious findings are seen. I suspect that this was simply the nipple superimposing the subareolar tissue. The additional views obtained today show no change compared with the prior exams of 10.31.08, 10.15.07, and 05.06.02. This mammogram was also analyzed by the Computer Aided Detection system (CAD), R2 ImageChecker, Version 8.3. Patient received a result/recommendation letter. CONCLUSION: Additional views on the left show no persistent or suspicious findings. I would recommend a follow-up screening mammogram in one year. Procedure Note Lisa Kiser MD - 06/24/2009 HISTORY: The patient had a screening exam on 06.02. and on the left MLOview anteriorly there was thought to be a possible nodular density versusthe nipple not in profile. DIGITAL LEFT ADDITIONAL VIEWS: Left MLO and true lateral views wereobtained with a BB marking the nipple. The nipple is in profile. Theadditional views show no mass or distortion and no suspicious findings areseen. I suspect that this was simply the nipple superimposing thesubareolar tissue. The additional views obtained today show no changecompared with the prior exams of 10.31.08, 10.15.07, and 05.06.02. This mammogram was also analyzed by the Computer Aided Detection system(CAD), R2 ImageChecker, Version 8.3. Patient received a result/recommendation letter. CONCLUSION: Additional views on the left show no persistent or suspiciousfindings. I would recommend a follow-up screening mammogram in one year. Nelson Cuevas MD MAMMO ORDERABLES Final Result documented in this encounter Visit Diagnoses Diagnosis Other (abnormal) findings on radiological examination of breast Other (abnormal) findings on radiological examination of breast documented in this encounter Care Teams Fruit Preserver Relationship Specialty Start Date End Date Patricio Castorena MD [address] [place] [address] PCP - General Internal Medicine 04/07/17 documented as of this encounter
--- OUTSIDE RECORDS SUMMARY | 2025-01-08 12:12 | XMS_ITS | Encounter Summary ---
Author Organization [facility] Address [address] [place] [address] Care Team Providers Care Line Worker Name Role Phone Patricio Castorena MD Primary Care Provider Encounter Details Date Type Department Care Team (Late st Contact Info) Description 04/28/2009 Ancillary Orders [facility] [address] [facility] [address] [place] [address] Nelson Cuevas MD [address] [place] [address] Other Screening Mammogram Social History Tobacco Use Types Packs/Day Years Used Date Smoking Tobacco: Never Alcohol Use Standard Drinks/Week Comments No 0 (1 standard drink = 0.6 oz pur e alcohol) Comments No Sex and Gender Information Value Date Recorded Sex Assigned at Not on file Legal 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
--- OUTSIDE RECORDS SUMMARY | 2025-01-08 12:12 | XMS_ITS | Clinical Summary ---
Author Organization [facility] Address [address] [place] [address] Phone Care Team Providers Care Tool Setter Name Role Phone Patricio Castorena MD Primary Care Provider [phone] Allergies Active Allergy Reactions Criticality Noted Date Comments Dashawn Inhibitors Cough Low 04/05/2007 Mometasone Swelling,Headache Low 03/25/2015 Penicillins Hives High 04/05/2008 Medications cetirizine (ZYRTEC) 10 mg Oral tablet Take 10 mg by mouth 1 time daily as needed. Active albuterol HFA 90 mcg inhalerIndication s:Moderate persistent asthma without complication Take 2 Puffs by inhalation every 6 hours as needed for Shortness of Breath. 6.7 Gram 11 5 Active beclomethasone (QVAR) 40 mcg/actuation Aerosol Take 2 Puffs by inhalation 2 times daily. 8.7 Gram 11 5 Active triamterene-hydro CHLOROthiazide (MAXZIDE 25) 37.5-25 mg tablet TAKE ONE TABLET BY MOUTH ONCE DAILY 30 Tablet 2 7 Active Active Problems Problem Noted Date Diagnosed Date Moderate persistent asthma without complication 03/17/2015 Overactive bladder 06/27/2012 Allergic rhinitis 11/13/2009 History of endometrial cancer 04/18/2009 Overview (04/18/2009): S/P CADY HERNANDEZ,Staging 11/29/05 Morbid obesity 04/09/2008 Hypertension 04/09/2008 Esophageal reflux 04/09/2008 Nonalcoholic steatohepatitis (JACOB) 04/09/2008 Mild Asthma 04/09/2008 Resolved Problems Problem [...] Date Smoking Tobacco: Never Smokeless Tobacco: Never Tobacco Cessation:Counseling Given: No Alcohol Use Standard Drinks/Week Comments No 0 (1 standard drink = 0.6 oz pur e alcohol) Comments No Sex and Gender Information Value Date Recorded Sex Assigned at Not on file Legal Sex Female 2:56 AM WHITE SIDEWALL TIRE BUFFER Gender Identity Not on file Sexual Orientation Not on file 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 Not on file Not on file No t on file Not on file Not on file Not on file Not on file Last Filed Vital Signs Vital Sign Reading Time Taken Comments Blood Pressure 120/70 05/16/2017 1:03 PM CDT Pulse 66 05/16/2017 1:03 PM CDT Temperature 37.1 C (98.7 F) 10/14/2015 12:23 PM CDT Respiratory Rate 18 10/14/2015 1:50 PM CDT Oxygen Saturation 100% 05/14/2016 9:13 AM CDT Inhaled Oxygen Concentration - - Weight 74.4 kg (164 lb) 05/16/2017 1:03 PM CDT Height 162.6 cm (5' 4 ) 05/16/2017 1:03 PM CDT Body Mass Index 28.15 05/16/2017 1:03 PM CDT Plan of Treatment Health Maintenance Due Date Last Done Comments DTAP/TDAP/TD VACCINES (1 - Tdap) 10/10/1998 10/09/18 99 FIT-DNA Q 3 years 2009 FIT/FOBT Q 1 year 2009 Flex Sig/CT Colonography Q 5 years 10/19/20091997 ZOSTER VACCINE (1 of 2) 2014 BREAST CANCER SCREENING 05/24/2018 05/24/20 17, 05/14/2016, 03/17/2015, Additional history exists Pre-Diabetes and Diabetes Screening 09/18/2018 09/19/2015, 04/05/2008 UPPER GI ENDOSCOPY 10/13/2018 10/14/2015 INFLUENZA VACCINE (#1) 2024 5, 05/18/2014, 05/09/2013, Additional history exists HEPATITIS B VACCINES (1 of 3 - Risk 3-dose series) 2024 RSV VACCINE (60+ or ) (1 - Risk 60-74 years 1-dose series) 2024 COLORECTAL SCREENING 10/13/2025 10/14/2015 Colorectal Cancer Screening 10/13/2025 Procedures Procedure Name Priority Date/Time Associated Diagnosis Comments MAMMO 3D FATMATA SCREEN BILAT W OR WO CAD Routine 05/24/2017 12:42 PM WHITE SIDEWALL TIRE BUFFER Encounter for screening mammogram for malignant neoplasm of breast HEMOGLOBIN A1C Routine 09/19/2015 10:48 AM WHITE SIDEWALL TIRE BUFFER Cirrhosis of liver without ascites, unspecified hepatic cirrhosis type (CMS/HCC) from Last 3 Months or Most Recently Relevant to Health Maintenance Results * MAMMO SCRN BILAT 3D FATMATA W OR WO CAD (05/24/2017 12:42 PM WHITE SIDEWALL TIRE BUFFER) Anatomical Region Laterality Modality Breast Bilateral Mammography Narrative 05/25/2017 9:08 AM WHITE SIDEWALL TIRE BUFFER Bilateral Mammogram Reason for Exam: Screening Comparison: [...] findings since the prior mammogram(s). Jeanine Cox [facility] MAMMO ORDERABLES Final Resul t * (ABNORMAL) HEMOGLOBIN A1C (09/19/2015 10:48 AM WHITE SIDEWALL TIRE BUFFER) HEMOGLOBIN A1C 6.8(H) 4.0 - 6.0 % 09/19/2015 11:16 AM [facility] EST. AVG GLUCOSE, A1C 148 mg/dL 09/19/2015 11:16 AM [facility] Blood Venipuncture - L ab Collect / Unknown 09/19/2015 10:48 AM WHITE SIDEWALL TIRE BUFFER 09/19/2015 10:48 AM WHITE SIDEWALL TIRE BUFFER Narrative [facility] SERVICES - [place] - 09/19/2015 11:16 AM WHITE SIDEWALL TIRE BUFFER Falsely low A1C measurements can occur when: 1. Anemia and/or hemolytic anemia is present. 2. Hemoglobin variants present. 3. Renal failure. 4. Transfusion of blood product in the last 120 days. We recommend ordering a fructosamine test([id number]) to more accurately assess glycemic status if any of the above conditions are present. Rachel Knox [facility] CHEMISTRY ORDERABLES Fin al Result [facility] CLIA# [id number] [id number] [place] [address] from Last 3 Months or Most Recently Relevant to Health Maintenance Insurance [employer] LOCAL Advance Directives For more information, please contact: [phone] * Full Code (Latest Code Status on File) Date Activated Date Inactivated Comments 10/14/2015 12:16 PM 10/14/2015 4:03 PM * Full Code Date Activated Date Inactivated Comments 09/04/2015 10:03 AM 09/04/2015 4:47 PM Care Teams Tool Setter Relationship Specialty Start Date End Date Patricio Castorena MD [address] [place] [address] PCP - General Internal Medicine 04/07/17
--- OUTSIDE RECORDS SUMMARY | 2025-01-08 12:12 | XMS_ITS | Encounter Summary ---
Author Organization [facility] Address [address] [place] [address] Care Team Providers Care Laborer Laboratory Name Role Phone Patricio Castorena MD Primary Care Provider [phone] Encounter Details Date Type Department Care Team (Late st Contact Info) Description 06/02/2009 Ancillary Orders [facility] [address] [place] [address] Nelson Cuevas MD [address] [place] [address] Other Screening Mammogram Social History Tobacco Use Types Packs/Day Years Used Date Smoking Tobacco: Never Alcohol Use Standard Drinks/Week Comments No 0 (1 standard drink = 0.6 oz pur e alcohol) Comments No Sex and Gender Information Value Date Recorded Sex Assigned at Not on file Legal Sex Female 2:56 AM HOUSESMITH Gender Identity Not on file Sexual Orientation Not on file 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 Both breasts primarily fatty replaced. There are no suspicious calcifications or areas of architectural distortion. One of the two submitted left MLO views shows an 11 x 10 mm nodular density in the retroareolar region. It is possible that reflects the nipple seen en face. This digital mammogram was also analyzed by the Computer Aided Detection System (CAD), R2 ImageChecker, Version 8.3. SUMMARY: Questionable area of nodularity on the left. The patient should return for further evaluation. Initially, a BB should be placed on the nipple and MLO and lateral views with the nipple in profile should be obtained. Stable right breast. Procedure Note Angelo Gonzalez MD - 06/05/2009 DIGITAL BILATERAL SCREENING MAMMOGRAM WITH CAD: Comparison dates are 05/17/08, 05/01/07, and 11/20/01. Both breasts primarily fatty replaced. There are no suspiciouscalcifications or areas of architectural distortion. One of the two submitted left MLO views shows an 11 x 10 mm nodulardensity in the retroareolar region. It is possible that reflects thenipple seen en face. This digital mammogram was also analyzed by the Computer Aided DetectionSystem (CAD), R2 ImageChecker, Version 8.3. SUMMARY: Questionable area of nodularity on the left. The patient shouldreturn for further evaluation. Initially, a BB should be placed on thenipple and MLO and lateral views with the nipple in profile should beobtained. Stable right breast. Nelson Cuevas MD MAMMO ORDERABLES Final Result documented in this encounter Visit Diagnoses Diagnosis Other screening mammogram Other screening mammogram documented in this encounter Care Teams Laborer Laboratory Relationship Specialty Start Date End Date Patricio Castorena MD [address] [place] [address] PCP - General Internal Medicine 04/07/17 documented as of this encounter
[2025-01-08 12:36] LABS: Alanine Aminotransferase 32 U/L (0-33); Albumin Level 3.3 g/dL (3.5-5.2); Alkaline Phosphatase 81 U/L (35-105); Anion Gap 15.7 (5-19); Aspartate Amino Transferase 36 U/L (0-32); Blood Urea Nitrogen 10 mg/dL (8-23); Calcium 8.7 mg/dL (8.5-10.5); Carbon Dioxide 22 mmol/L (22-29); Chloride 102 mmol/L (98-107); Globulin 3.8 g/dL (1.3-4.6); Glucose 87 mg/dL (65-115); Lipase 37 U/L (13-60); NT Pro B Type Natriuretic Pept 178 pg/mL (0-125); Osmolality Calculated 280 mOsm/kg (285-295); Potassium 3.7 mmol/L (3.5-5.1); Sodium 136 mmol/L (136-145); Total Bilirubin 1.4 mg/dL (0.15-1.2); Total Protein 7.1 g/dL (6.6-8.7)
--- NOTE | 2025-01-08 14:24 | W.ED.ABDPA2 ---
HPI - Abdominal Pain General: Chief Complaint: Abdominal Pain Stated Complaint: retaining fluid in abdomen Time Seen by Provider: 01/08/25 14:20 History of Present Illness: 59-year-old female presents emergency room complaining of abdominal pain. She said previous paracentesis. She is complaining of swelling and inflamed enlargement of her abdomen at times difficult for her to take a deep breath. No recent fever sweats or chills no nausea vomiting diarrhea no chest pain Associated Symptoms: Reports nausea; Denies chills, dysuria, fever(s) and vomiting Related Data Home Medications ?Medication ?Instructions ?Recorded ?Confirmed fexofenadine 60 mg tablet (Sofi 60 mg PO BID PRN allergies 02/04/20 07/13/24 Allergy) rifaximin 550 mg tablet (Xifaxan) 550 mg PO BID 02/09/23 07/13/24 albuterol 90 mcg-budesonide 80 2 inh inhalation Q4H PRN Shortness 07/13/24 07/13/24 mcg/actuation HFA aerosol inhaler Of Breath (Airsupra) budesonide-formoterol HFA 160 2 puff inhalation BID 07/13/24 07/13/24 mcg-4.5 mcg/actuation aerosol inhaler (Breyna) Previous Rx's ?Medication ?Instructions ?Recorded furosemide 40 mg tablet (Lasix) 40 mg PO DAILY #30 tabs 07/17/24 lactulose 20 gram/30 mL oral 20 g (30 mL) PO DAILY PRN 07/17/24 solution Constipation (see protocol) #1,200 mL spironolactone 50 mg tablet 25 mg (1/2 x 50 mg) PO DAILY #30 07/17/24 tabs Allergies Allergy/AdvReac Type Severity Reaction Status Date / Time Penicillins Allergy Intermediate ALGY-Hives Verified 07/13/24 15:51 EL Inhibitors Allergy Unknown Verified 07/13/24 15:51 mometasone furoate Allergy ADR-Headach Verified 07/13/24 15:51 e alpha gal Allergy ALGY-Anaphy Uncoded 07/13/24 15:51 laxis Review of Systems Const: Denies: fever(s) or chills Card: Denies: chest pain Resp: Denies: dyspnea GI: Reports: abdominal pain and nausea; Denies: vomiting : Denies: dysuria, urinary frequency or urinary urgency Musc: Denies: neck pain or back pain Skin/Breast: Denies: rash PFSH ED PFSH: Medical History Liver cirrhosis secondary to JACOB Anxiety disorder Asthma Advanced cirrhosis of liver Hypertension Surgical History History of uterine cancer s/p hysterectomy b/l salpingoophorectomy in 2004. H/O hernia repair (~2005) abdominal hernia repair with mesh. Mesh was later recalled. Family History Mother Hypertension Liver cirrhosis secondary to JACOB Denies family history of Diabetes Dementia Cancer Social History Smoking and tobacco/nicotine status: never used tobacco/nicotine Alcohol intake: never Substance/Drug Use: never Housing: House Marital status: Current gender identity: Female Physical Exam Const: COMMON NORMALS: no acute distress GENERAL APPEARANCE: cooperative and comfortable ORIENTATION/CONSCIOUSNESS: Yes awake, Yes oriented to person, Yes oriented to place and Yes oriented to time HENMT: COMMON NORMALS: normocephalic, atraumatic and hearing grossly normal bilaterally HEAD & SCALP: normocephalic and atraumatic Resp: COMMON NORMALS: normal respiratory effort, No retractions, No use of accessory muscles and clear to auscultation bilaterally AUSCULTATION: clear to auscultation bilaterally Cardio: COMMON NORMALS: regular rate, regular rhythm and No murmurs present (Cardio) RATE: regular rate RHYTHM: regular rhythm GI: COMMON NORMALS: No hepatosplenomegaly present INSPECTION: Yes abdominal distension and Yes Fluid wave present AUSCULTATION: Yes normoactive bowel sounds PALPATION: No Tenderness to palpation present (GI), No Guarding due to palpation present (GI), Yes No hepatosplenomegaly present and Yes Ascites present PERCUSSION: dullness to percussion and Fluid wave present Extremity: COMMON NORMALS: normal to inspection, capillary refill normal, no clubbing, cyanosis or edema, no calf tenderness and no pedal edema Neuro: SENSORIUM/ORIENTATION: Yes oriented to person, Yes oriented to place and Yes oriented to time Skin: COMMON NORMALS: no rashes or lesions noted GENERAL SKIN EXAM: no rashes or lesions noted Course Vital Signs: Vital signs: Vital Signs Temperature 97.9 F 01/08/25 11:48 Pulse Rate 66 01/08/25 18:48 Respiratory Rate 18 01/08/25 11:48 Blood Pressure 120/63 01/08/25 18:48 Pulse Oximetry 99 01/08/25 18:48 Oxygen Delivery Me thod Room Air 01/08/25 17:08 MDM - Abdominal Pain Medical Decision Making Patient has significant ascites initially placed drain for paracentesis she had about a liter out the drain came out did not been able to get any further we asked radiology to return there of the reidentify second pocket got 5 more liters out patient is feeling quite a bit better. Monitor patient for bed she remained stable discharge home with me removed a total of 660 mL of ascites fluid this was cultured. No signs of infection at this time recommend that she follow-up with her primary care doctor. Continue with current medications include the spironolactone. Lab Data 01/08/25 11:54 01/08/25 11:54 Labs/Radiology: Radiology Impressions Paracentesis Ultrasound 01/08/25 16:41 IMPRESSION: Uncomplicated ultrasound-guided paracentesis. Removal of 6600 Laboratory Results WBC 3.91 10^3/uL (3.29-11.43) 01/08/25 11:54 RBC 4.16 10^6/uL (3.85-5.65) 01/08/25 11:54 Hgb 12.80 g/dL (11.27-16.99) 01/08/25 11:54 Hct 39.2 % (36-47) 01/08/25 11:54 MCV 94.2 fl (85-98) 01/08/25 11:54 MCH 30.8 pg (27-33) 01/08/25 11:54 MCHC 32.7 g/dL (30-55) 01/08/25 11:54 RDW 14.4 % (12.1-15.1) 01/08/25 11:54 Plt Count 132 10^3/cmm (157-399) L 01/08/25 11:54 MPV 9.8 fL (7.4-10.4) 01/08/25 11:54 Neut % (Auto) 66.9 % 01/08/25 11:54 Lymph % (Auto) 17.4 % 01/08/25 11:54 [place] % (Auto) 9.5 % 01/08/25 11:54 Eos % (Auto) 5.4 % 01/08/25 11:54 Baso % (Auto) 0.5 % 01/08/25 11:54 Neut # (Auto) 2.62 10^3/uL (1.8-7.7) 01/08/25 11:54 Lymph # (Auto) 0.7 10^3/uL (0.8-4.8) L 01/08/25 11:54 [place] # (Auto) 0.4 10^3/uL (0.2-0.9) 01/08/25 11:54 Eos # (Auto) 0.2 10^3/uL (0.0-0.8) 01/08/25 11:54 Baso # (Auto) 0.0 10^3/uL (0.0-0.1) 01/08/25 11:54 Nucleated RBC % (auto) 0 % 01/08/25 11:54 Nucleated RBCs # 0.0 /100WBC 01/08/25 11:54 PT 14.20 SECONDS (12.1-14.9) 01/08/25 11:54 INR 1.03 (0.8-1.2) 01/08/25 11:54 Sodium 136 mmol/L (136-145) 01/08/25 11:54 Potassium 3.7 mmol/L (3.5-5.1) 01/08/25 11:54 Chloride 102 mmol/L (98-107) 01/08/25 11:54 Carbon Dioxide 22 mmol/L (22-29) 01/08/25 11:54 Anion Gap 15.7 (5-19) 01/08/25 11:54 BUN 10 mg/dL (8-23) 01/08/25 11:54 Creatinine 0.6 mg/dL (0.5-0.9) 01/08/25 11:54 GFR Calculation 102.0 mL/min (90-130) 01/08/25 11:54 Glucose 87 mg/dL (65-115) 01/08/25 11:54 Calculated Osmolality 280 mOsm/kg (285-295) L 01/08/25 11:54 Calcium 8.7 mg/dL (8.5-10.5) 01/08/25 11:54 Total Bilirubin 1.4 mg/dL (0.15-1.2) H 01/08/25 11:54 AST 36 U/L (0-32) H 01/08/25 11:54 ALT 32 U/L (0-33) 01/08/25 11:54 Alkaline Phosphatase 81 U/L (35-105) 01/08/25 11:54 NT-Pro-B Natriuret Pep 178 pg/mL (0-125) H 01/08/25 11:54 Total Protein 7.1 g/dL (6.6-8.7) 01/08/25 11:54 Albumin 3.3 g/dL (3.5-5.2) L 01/08/25 11:54 Globulin 3.8 g/dL (1.3-4.6) 01/08/25 11:54 Lipase 37 U/L (13-60) 01/08/25 11:54 All radiology interpretation(s) finalized by discharge Discharge Plan Discharge Patient Disposition: Home Clinical Impression: Advanced cirrhosis of liver, Ascites Condition: Stable Prescriptions: No Action fexofenadine [Sofi Allergy] 60 mg tablet 60 mg PO BID PRN (Reason: allergies) Xifaxan 550 mg tablet 550 mg PO BID budesonide-formoterol [Breyna] 160-4.5 mcg/actuation HFA aerosol inhaler 2 puff INHALATION BID Airsupra 90-80 mcg/actuation HFA aerosol inhaler 2 inh INHALATION Q4H PRN (Reason: Shortness Of Breath) lactulose 20 gram/30 mL Solution 20 g PO DAILY PRN (Reason: Constipation (see protocol)) Qty: 1200 0RF furosemide [Lasix] 40 mg tablet 40 mg PO DAILY Qty: 30 0RF spironolactone 50 mg tablet 25 mg PO DAILY Qty: 30 0RF Discharge Orders: Discharge ED (Routine); Ordered 01/08/25 Ordered By: Konstantin Mullins Referrals: French,Nora, CASTING MACHINE SET UP OPERATOR [Primary Care Provider, Nurse Practitioner] Discharge Diet: Usual diet Discharge Activity: Resume usual activity Patient Instructions: Opioid Safety, Pain Management, Patient Portal & [place] Instructions Activity Restrictions/Additional Instructions: [facility]. It is very important that you follow up as instructed or that you return to the Emergency Department should you have concerns or if your condition changes or worsens in any way. You were seen in the emergency room with complaints of swelling in your abdomen. Paracentesis was done and drained off over 6 L of fluid. You should follow-up with your primary care provider or your liver specialist within the next week. Cultures were done of the fluid that was taken off the abdomen today. Return if you have further problems. Print Language: Hungarian Coding Level of Care Code ED Index Clerk for Daria Hill
[2025-01-08 14:42] LABS: INR 1.03 (0.8-1.2)
--- NOTE | 2025-01-08 15:06 | US_ITS ---
WS: [id number] ULTRASOUND-GUIDED PARACENTESIS CLINICAL INFORMATION: cirhossis COMPARISON: None. Procedure Informed consent: The risks, benefits, and alternatives of the procedure were discussed with the patient. Verbal and written consent was obtained. Timeout: A timeout was performed to confirm the correct patient, procedure, and site. Preparation: A suitable skin site was identified. The patient was prepped and draped in usual sterile fashion. Lidocaine 1% was used for local anesthesia. Catheter: 4 [place] One-step Yueh catheter. Side: LEFT lower quadrant. Fluid Volume: 2100 ml Color: Clear yellow DISPOSITION: Discarded safely. Complications: None. US/US paracentesis abd w [id number] IMPRESSION: Uncomplicated ultrasound-guided paracentesis. Removal of 2100 cc
[2025-01-08 16:03] VITALS: BP 136/70; PULSE 70; O2SAT 99
--- NOTE | 2025-01-08 16:41 | US_ITS ---
WS: [id number] ULTRASOUND-GUIDED PARACENTESIS CLINICAL INFORMATION: POST PARA COMPARISON: None. Procedure Informed consent: The risks, benefits, and alternatives of the procedure were discussed with the patient. Verbal and written consent was obtained. Timeout: A timeout was performed to confirm the correct patient, procedure, and site. Preparation: A suitable skin site was identified. The patient was prepped and draped in usual sterile fashion. Lidocaine 1% was used for local anesthesia. Catheter: 4 [place] One-step Yueh catheter. Side: RIGHT lower quadrant. Fluid Volume: 6600 ml Color: Clear yellow DISPOSITION: Discarded safely. Complications: None. US/US paracentesis abd w [id number] IMPRESSION: Uncomplicated ultrasound-guided paracentesis. Removal of 6600
[2025-01-08 17:08] VITALS: BP 124/66; PULSE 65; O2SAT 100
[2025-01-08 18:48] VITALS: BP 120/63; PULSE 66; O2SAT 99
== END 2025-01-08 18:50 | disposition home or self-care (01) ==
PROVIDERS: Emergency Medicine; Emergency Provider Family Medicine; PCP Nurse Practitioner Family
DX: K74.60 Unspecified cirrhosis of liver (principal); R18.8 Other ascites; I10 Essential (primary) hypertension; Z85.42 Personal history of malignant neoplasm of other parts of uterus
CPT/HCPCS: 36415; 49083; 80053; 83690; 83880; 85025; 85610; 87070; 87075; 87205; 99284